=== PATIENT | male | born 1945 | race Caucasian/White ===

== ENCOUNTER 2021-05-11 07:05 | Inpatient (IN) | payer MEDICARE, MEDICAID ==
[~2021-05-11] VITALS: Ht 172.7 cm; Wt 71.9 kg
[2021-05-11] MEDS ORDERED: ipratropium/albuterol 3ml nebule NEB ONE (07:35)
[2021-05-11 07:44] LABS: ABG BASE EXCESS -11.9 mmol/L (-2.0-2.0); ABG OXYGEN SATURATION 97.3 % (94-97); ABG PCO2 (T) 26.3 mmHg (35.0-48.0); ABG PO2 (T) 100.3 mmHg (75.0-100.0); ALLEN'S TEST Modified; FCOHb 0.8 % (0.0-3.9); FLOW 15 L/min; FMetHb 0.3 % (0.0-1.5); FO2Hb 96.2 % (94-97); TOTAL HEMOGLOBIN 9.2 G/dl (14.0-18.0)
[2021-05-11] MEDS ORDERED: epiNEPHrine 0.1mg/ml 10ml syringe ONE (08:00)
[2021-05-11] MEDS ORDERED: sod chloride 0.9% 10ml flush syringe IV ONE (08:00)
[2021-05-11] MEDS ORDERED: calcium chloride 100 MG/1 ML inj IV ONE (08:00)
[2021-05-11] MEDS ORDERED: epiNEPHrine 1 mg/ml 30ml MDV ONE (08:00)
[2021-05-11] MEDS ORDERED: adenosine 3mg/ml 2ml vial IV ONE (08:00)
[2021-05-11] MEDS ORDERED: nitroPRUSSIDE 20mg/NS 100mL (0.2mg/mL) VIAL (200mcg/ml) IV ONE (08:00)
[2021-05-11] MEDS ORDERED: rocuronium 10mg/ml inj IV ONE (08:00)
[2021-05-11] MEDS ORDERED: atropine 0.1mg/ml 10ml syringe ONE (08:00)
[2021-05-11 08:27] LABS: BASOPHILS % (AUTO) 0.3 % (0-1); EOSINOPHILS # (AUTO) 0.1 X10'3 (0-0.9); EOSINOPHILS % (AUTO) 0.5 % (0-6); HEMATOCRIT 26.8 % (42.0-52.0); HEMOGLOBIN 8.8 g/dl (14.0-17.9); LYMPHOCYTES # (AUTO) 0.4 X10'3 (1.1-4.8); LYMPHOCYTES % (AUTO) 2.7 % (21-51); MEAN CORPUSCULAR HEMOGLOBIN 32.9 PG (27.0-31.0); MEAN CORPUSCULAR HGB CONC 32.8 g/dL (33.0-36.5); MEAN CORPUSCULAR VOLUME 100.3 FL (78-98); MONOCYTES # (AUTO) 0.6 X10'3 (0-0.9); MONOCYTES % (AUTO) 4.5 % (2-12); NEUTROPHILS # (AUTO) 12.5 X10'3 (1.8-7.7); PLATELET COUNT 378 X10'3 (140-440); RED BLOOD COUNT 2.67 X10'6 (4.70-6.10); RED CELL DISTRIBUTION WIDTH 15.3 % (11.5-14.5); WHITE BLOOD COUNT 13.5 X10'3 (4.5-11.0)
--- NOTE | 2021-05-11 08:35 | NUR ---
pathology technician at bedside.
--- NOTE | 2021-05-11 08:50 | NUR ---
TO CT AT THIS TIME.
[2021-05-11 08:53] LABS: ALANINE AMINOTRANSFERASE 20 U/L (12-78); ALBUMIN/GLOBULIN RATIO 0.4 (1.1-1.5); ALKALINE PHOSPHATASE 141 IU/L (46-116); ANION GAP 14 (8-16); ASPARTATE AMINO TRANSFERASE 18 U/L (10-37); BILIRUBIN,TOTAL 0.4 MG/DL (0.1-1.0); BLOOD UREA NITROGEN 82 MG/DL (7-18); CALCIUM 8.5 MG/DL (8.5-10.1); CHLORIDE 105 MMOL/L (99-107); CREATININE 5.12 MG/DL (0.60-1.10); GLUCOSE 202 MG/DL (70-104); SODIUM 135 MMOL/L (135-145); TOTAL CARBON DIOXIDE 15.8 MMOL/L (24-32); eGFR 11 ML/MIN
[2021-05-11] MEDS ORDERED: CefTRIAXone/D5W-Rocephin 1gm 50 ML IV ONE (09:00)
[2021-05-11] MEDS ORDERED: azithromycin/NS 500mg/250ml 250 ML IV ONE (09:00)
--- NOTE | 2021-05-11 09:00 | NUR ---
BACK FROM CT AT THIS TIME VIA [facility].
--- NOTE | 2021-05-11 09:10 | NUR ---
SUPERVISOR FUR FLOOR WORKER AT BEDSIDE.
[2021-05-11 09:46] LABS: APTT 20 SECONDS (22-32)
--- NOTE | 2021-05-11 10:00 | NUR ---
Kishan cuevas at bedside stating he spoke with patient's son with dr jackson and according to MD patient no longer needs to be on COVID isolation r/t patient positive COVID test x1 month ago and will continue to test positive for up to 3 months after testing positive.
[2021-05-11] MEDS ORDERED: normal saline 1000ml 1,000 ML IV SCH (10:20)
[2021-05-11] MEDS ORDERED: acetaminophen 325mg tablet PO PRN (10:20)
--- NOTE | 2021-05-11 10:24 | NUR ---
JACKLYN LEON (SON) [phone].
--- NOTE | 2021-05-11 11:25 | NUR ---
Patient to [facility] via [facility].
--- NOTE | 2021-05-11 12:20 | NUR ---
RT AT BEDSIDE TO ASSESS PATIENT AND MADE AWARE PAT ON 10L SIMPLE MASK WITH SPO2 MAINTAINING 97%. PATIENT ASLEEP, NO SIGNS OF DISTRESS NOTED.
--- NOTE | 2021-05-11 12:32 | NUR ---
duoneb svn tx was not needed and not given. patient on covid isolation. will notify doctor of covid policy for covid patient's if patient needs a breathing tx. also nurse jaspal is aware of svn tx not given.
--- NOTE | 2021-05-11 14:38 | NUR ---
Dr. Buitrago at bedside.
[2021-05-11] MEDS ORDERED: sodium polystyrene sulfonate 15gm/60ml oral suspension PO STA (14:39)
[2021-05-11] MEDS ORDERED: albuterol 2.5 MG/3 ML nebule NEB STA (14:39)
[2021-05-11] MEDS ORDERED: ASPI-611 PO (14:47)
[2021-05-11] MEDS ORDERED: SERT-432 PO (14:47)
[2021-05-11] MEDS ORDERED: METO100T14 PO (14:47)
[2021-05-11] MEDS ORDERED: FINA5TAB11 PO (14:47)
[2021-05-11] MEDS ORDERED: OXYC5CAP19 PO (14:47)
[2021-05-11] MEDS ORDERED: GABA600T13 PO (14:47)
[2021-05-11] MEDS ORDERED: ACET-2615 PO (14:47)
[2021-05-11] MEDS ORDERED: MULT-1085 PO (14:47)
[2021-05-11] MEDS ORDERED: FAMO20TA8 PO (14:47)
[2021-05-11] MEDS ORDERED: INSU100I8 SQ (14:47)
[2021-05-11] MEDS ORDERED: AMLO5TAB PO (14:47)
[2021-05-11] MEDS ORDERED: TRAZ-251 PO (14:47)
[2021-05-11] MEDS ORDERED: INSU100V9 SQ (14:47)
[2021-05-11] MEDS ORDERED: CALC-825 PO (14:47)
[2021-05-11] MEDS ORDERED: ALLO100T25 PO (14:47)
[2021-05-11] MEDS: normal saline 1000ml 1,000 ML IV SCH (14:56)
[2021-05-11] MEDS ORDERED: heparin 10,000 units/1 ML INJ IV PRN (15:15)
[2021-05-11] MEDS ORDERED: heparin 10,000 units/1 ML INJ IV ONE (15:15)
[2021-05-11] MEDS: heparin 25,000 UNIT/250ml bag 250 ML IV SCH (15:57)
[2021-05-11] MEDS ORDERED: heparin, porcine 5000 units/ml vial SQ SCH (16:00)
[2021-05-11] MEDS ORDERED: albuterol 2.5 MG/3 ML nebule CONTNEB PRN (16:25)
[2021-05-11 17:40] VITALS: BP 110/45
[2021-05-11] MEDS ORDERED: calcium gluconate inj. 1 GM in normal saline 100ml IV soln 100 ML IV ONE (17:45)
[2021-05-11] MEDS ORDERED: albuterol 2.5 MG/3 ML nebule NEB ONE (17:45)
[2021-05-11] MEDS ORDERED: insulin regular, human 10 units/0.1 ml syringe IV ONE (17:45)
[2021-05-11] MEDS ORDERED: dextrose 50%-water 50ml dispensing syringe IV ONE (17:45)
[2021-05-11] MEDS ORDERED: dexamethasone 4mg/ml inj IV SCH (20:00)
[2021-05-11] MEDS ORDERED: temazepam 15mg capsule PO PRN (21:00)
[2021-05-11] MEDS ORDERED: albuterol 2.5 MG/3 ML nebule CONTNEB STA (21:04)
[2021-05-11] MEDS: SODIUM ZIRCONIUM CYCLOSILICATE 10 GM POWD.PACK PO SCH (21:05)
[2021-05-11 22:00] VITALS: BP 117/53
[2021-05-11 22:35] LABS: HEMOGLOBIN 7.1 g/dl (14.0-17.9); MEAN PLATELET VOLUME 7.1 FL (7.4-10.4)
[2021-05-11 22:36] LABS: BASOPHILS # (AUTO) 0.2 X10'3 (0-0.2); BASOPHILS % (AUTO) 1.4 % (0-1); EOSINOPHILS % (AUTO) 0.1 % (0-6); HEMATOCRIT 22.2 % (42.0-52.0); LYMPHOCYTES # (AUTO) 0.5 X10'3 (1.1-4.8); LYMPHOCYTES % (AUTO) 3.6 % (21-51); MEAN CORPUSCULAR HEMOGLOBIN 32.5 PG (27.0-31.0); MEAN CORPUSCULAR VOLUME 101.7 FL (78-98); MONOCYTES # (AUTO) 0.7 X10'3 (0-0.9); NEUTROPHILS # (AUTO) 13.2 X10'3 (1.8-7.7); NEUTROPHILS % (AUTO) 89.9 % (42-75); PLATELET COUNT 340 X10'3 (140-440); RED BLOOD COUNT 2.19 X10'6 (4.70-6.10); RED CELL DISTRIBUTION WIDTH 15.4 % (11.5-14.5); WHITE BLOOD COUNT 14.7 X10'3 (4.5-11.0)
[2021-05-11 22:54] LABS: D-DIMER 6.21 MG/L FEU (0-0.50)
[2021-05-11 22:56] LABS: ALANINE AMINOTRANSFERASE 20 U/L (12-78); ALBUMIN 1.8 G/DL (3.4-5.0); ALBUMIN/GLOBULIN RATIO 0.4 (1.1-1.5); ALKALINE PHOSPHATASE 133 IU/L (46-116); ANION GAP 14 (8-16); ASPARTATE AMINO TRANSFERASE 15 U/L (10-37); BILIRUBIN,TOTAL 0.2 MG/DL (0.1-1.0); BLOOD UREA NITROGEN 83 MG/DL (7-18); CALCIUM 8.5 MG/DL (8.5-10.1); CHLORIDE 108 MMOL/L (99-107); CREATININE 5.54 MG/DL (0.60-1.10); GLUCOSE 326 MG/DL (70-104); MAGNESIUM 2.3 MG/DL (1.5-2.4); PHOSPHORUS 6.1 MG/DL (2.3-4.5); POTASSIUM 4.7 MMOL/L (3.5-5.1); SODIUM 139 MMOL/L (135-145); TOTAL CARBON DIOXIDE 16.7 MMOL/L (24-32); TOTAL PROTEIN 6.4 G/DL (6.4-8.2); eGFR 10 ML/MIN
[2021-05-11 22:59] LABS: TOTAL CELLS COUNTED 100
[2021-05-11 23:08] LABS: PLATELET ESTIMATE NORMAL
[2021-05-11 23:09] LABS: ANISOCYTOSIS 1+; POLYCHROMASIA FEW
[2021-05-11 23:28] LABS: ABG BASE EXCESS -11.9 mmol/L (-2.0-2.0); ABG HCO3 14.2 mmol/L (22.0-26.0); ABG OXYGEN SATURATION 89.4 % (94-97); ABG PCO2 (T) 32.6 mmHg (35.0-48.0); ABG PO2 (T) 56.3 mmHg (75.0-100.0); ALLEN'S TEST Modified; FCOHb 0.7 % (0.0-3.9); FLOW 15 L/min; FMetHb 0.3 % (0.0-1.5); FO2Hb 88.5 % (94-97); PATIENT TEMPERATURE 36.9; TOTAL HEMOGLOBIN 7.3 G/dl (14.0-18.0)
[2021-05-12] VITALS (37 sets, daily range): BP systolic 95–145; BP diastolic 36–91
[2021-05-12] MEDS ORDERED: LIDOcaine 2% 10ml TOPICAL JELLY (Urojet) TP ONE (00:45)
--- NOTE | 2021-05-12 01:12 | NUR ---
Pt transferred down to ICU bed from telemetry due to increased SOB and anxiety. Report received from telegraph editor and questions answered. When pt arrived he was on a nonrebreather mask at 15 LPM, very restless, unable to sit still. Pt transferred over to ICU bed and cleaned up since he was incontinent of stool. He was then placed on bipap which he tolerated fairly well and was able to follow commands and answer questions appropriately. Dr. Katz teleconferenced in to assess the pt and ordered an insulin drip for his untreated high blood sugars and a precedex drip to help with the pts anxiety. Orders were placed and waiting on approval and meds from pharmacy.
[2021-05-12] MEDS ORDERED: dextrose 50%-water 50ml dispensing syringe IV PRN (01:20)
[2021-05-12] MEDS ORDERED: insulin Lispro (HumaLOG) vial - multi-dose SQ PRN (01:20)
[2021-05-12] MEDS ORDERED: Insulin Reg/NS 100units/100mL 100 ML IV SCH (01:20)
[2021-05-12] MEDS: dexmedetomidine/D5W 100mL 100 ML IV PRN (01:25)
[2021-05-12] MEDS: normal saline 1000ml 1,000 ML IV SCH (01:42)
[2021-05-12 02:42] LABS: ABG BASE EXCESS -11.7 mmol/L (-2.0-2.0); ABG HCO3 13.6 mmol/L (22.0-26.0); ABG OXYGEN SATURATION 98.7 % (94-97); ABG PCO2 (T) 30.3 mmHg (35.0-48.0); ABG PO2 (T) 142.4 mmHg (75.0-100.0); ALLEN'S TEST Modified; FCOHb 0.7 % (0.0-3.9); FMetHb 0.3 % (0.0-1.5); FO2Hb 97.7 % (94-97); PATIENT TEMPERATURE 38.4; TOTAL HEMOGLOBIN 6.2 G/dl (14.0-18.0)
--- NOTE | 2021-05-12 03:26 | NUR ---
Precedex drip running and pt able to rest comfortably and tolerate the bipap very well so I am weaning down the fiO2.
[2021-05-12 04:01] LABS: BASOPHILS # (AUTO) 0.1 X10'3 (0-0.2); EOSINOPHILS % (AUTO) 0.1 % (0-6); LYMPHOCYTES # (AUTO) 0.2 X10'3 (1.1-4.8); LYMPHOCYTES % (AUTO) 1.5 % (21-51); PLATELET COUNT 348 X10'3 (140-440)
[2021-05-12 04:03] LABS: BASOPHILS % (AUTO) 0.7 % (0-1); MEAN CORPUSCULAR HEMOGLOBIN 32.7 PG (27.0-31.0); MEAN CORPUSCULAR HGB CONC 32.4 g/dL (33.0-36.5); MEAN CORPUSCULAR VOLUME 101.1 FL (78-98); MEAN PLATELET VOLUME 7.1 FL (7.4-10.4); MONOCYTES # (AUTO) 0.5 X10'3 (0-0.9); MONOCYTES % (AUTO) 3.9 % (2-12); NEUTROPHILS % (AUTO) 93.8 % (42-75); RED BLOOD COUNT 1.83 X10'6 (4.70-6.10); RED CELL DISTRIBUTION WIDTH 15.5 % (11.5-14.5); WHITE BLOOD COUNT 13.9 X10'3 (4.5-11.0)
[2021-05-12 04:10] LABS: HEMATOCRIT 18.5 % (42.0-52.0)
[2021-05-12 04:15] LABS: ALANINE AMINOTRANSFERASE 18 U/L (12-78); ALBUMIN 1.7 G/DL (3.4-5.0); ALBUMIN/GLOBULIN RATIO 0.5 (1.1-1.5); ALKALINE PHOSPHATASE 128 IU/L (46-116); ANION GAP 15 (8-16); ASPARTATE AMINO TRANSFERASE 17 U/L (10-37); BILIRUBIN,TOTAL 0.3 MG/DL (0.1-1.0); BLOOD UREA NITROGEN 82 MG/DL (7-18); CALCIUM 7.3 MG/DL (8.5-10.1); CHLORIDE 109 MMOL/L (99-107); CREATININE 5.11 MG/DL (0.60-1.10); GLUCOSE 270 MG/DL (70-104); MAGNESIUM 2.3 MG/DL (1.5-2.4); PHOSPHORUS 6.2 MG/DL (2.3-4.5); POTASSIUM 4.9 MMOL/L (3.5-5.1); SODIUM 141 MMOL/L (135-145); TOTAL CARBON DIOXIDE 16.8 MMOL/L (24-32); TOTAL PROTEIN 5.2 G/DL (6.4-8.2); eGFR 11 ML/MIN
--- NOTE | 2021-05-12 05:48 | NUR ---
pt responding well to insulin drip.
--- NOTE | 2021-05-12 06:30 | NUR ---
Called to notify MD of critical hemoglobin at this time. Plan for 2 units PRBCs
[2021-05-12] MEDS ORDERED: VANCOMYCIN 1GM/200ML IVPB 200 ML IV PRN (07:20)
--- NOTE | 2021-05-12 07:59 | NUR ---
Problems reprioritized. Patient report given, questions answered & plan of care reviewed with Tiffany ORLANDO.
[2021-05-12] MEDS ORDERED: VANCOMYCIN 1GM/200ML IVPB 200 ML IV ONE (08:00)
[2021-05-12] MEDS ORDERED: dexamethasone 4mg/ml inj IV SCH (08:00)
[2021-05-12] MEDS ORDERED: CefTRIAXone 2gm/D5W 50ml BAG 50 ML IV SCH (08:00)
[2021-05-12] MEDS: SODIUM ZIRCONIUM CYCLOSILICATE 10 GM POWD.PACK PO SCH ×2 (08:00→13:00)
[2021-05-12] MEDS ORDERED: dexamethasone inj 6 MG in dextrose 5%-water 100 ML IV SCH (08:00)
--- NOTE | 2021-05-12 09:16 | NUR ---
Called pharmacy- Patient medications are unavailable at this time. To be sent via Pharmacy.
[2021-05-12] MEDS: acetaminophen 325mg tablet PO PRN (11:07)
--- NOTE | 2021-05-12 11:18 | NUR ---
Noted pt transferred to ICU w/ acute respiratory failure, bilateral PNA, [place], and hx CKD V per EMR. PO 25% initial renal meals BIPAP dependent though able to drink liquids w/ frequent coughing interrupting meal intake per RN. DEB recommends Nepro ONS TIDWM; notified. Will monitor for further nutrition intervention needs. Addendum: 05/12/21 at [address] Amended: Links added.
[2021-05-12] MEDS ORDERED: OXYCODONE HCL PO SCH (11:45)
--- NOTE | 2021-05-12 12:00 | NUR ---
Notified MD of low grade temp at this time. Current hemoglobin 7.4- Plan to hold off on second unit
[2021-05-12 12:33] LABS: BASOPHILS # (AUTO) 0.1 X10'3 (0-0.2); BASOPHILS % (AUTO) 0.7 % (0-1); EOSINOPHILS % (AUTO) 0.1 % (0-6); HEMATOCRIT 22.7 % (42.0-52.0); HEMOGLOBIN 7.4 g/dl (14.0-17.9); LYMPHOCYTES # (AUTO) 0.4 X10'3 (1.1-4.8); LYMPHOCYTES % (AUTO) 3.1 % (21-51); MEAN CORPUSCULAR HEMOGLOBIN 31.9 PG (27.0-31.0); MEAN CORPUSCULAR HGB CONC 32.6 g/dL (33.0-36.5); MEAN CORPUSCULAR VOLUME 97.9 FL (78-98); MEAN PLATELET VOLUME 7.2 FL (7.4-10.4); MONOCYTES # (AUTO) 0.7 X10'3 (0-0.9); NEUTROPHILS # (AUTO) 11.9 X10'3 (1.8-7.7); NEUTROPHILS % (AUTO) 91.1 % (42-75); PLATELET COUNT 304 X10'3 (140-440); RED BLOOD COUNT 2.32 X10'6 (4.70-6.10); RED CELL DISTRIBUTION WIDTH 16.8 % (11.5-14.5); WHITE BLOOD COUNT 13.1 X10'3 (4.5-11.0)
[2021-05-12 12:54] LABS: CHLORIDE 111 MMOL/L (99-107); POTASSIUM 4.4 MMOL/L (3.5-5.1)
[2021-05-12] MEDS: NUT.TX.IMP.RENAL FXN,LAC-REDUC (Nepro) 237 ML VANILLA PO SCH ×2 (13:00→18:00)
[2021-05-12 13:11] LABS: ALANINE AMINOTRANSFERASE 21 U/L (12-78); ALBUMIN 1.6 G/DL (3.4-5.0); ALBUMIN/GLOBULIN RATIO 0.4 (1.1-1.5); ALKALINE PHOSPHATASE 130 IU/L (46-116); ANION GAP 16 (8-16); ASPARTATE AMINO TRANSFERASE 25 U/L (10-37); BILIRUBIN,TOTAL 0.4 MG/DL (0.1-1.0); BLOOD UREA NITROGEN 80 MG/DL (7-18); BUN/CREATININE RATIO 15.7 (5.4-32.0); CALCIUM 7.3 MG/DL (8.5-10.1); CREATININE 5.09 MG/DL (0.60-1.10); GLUCOSE 142 MG/DL (70-104); SODIUM 144 MMOL/L (135-145); TOTAL CARBON DIOXIDE 16.6 MMOL/L (24-32); TOTAL PROTEIN 5.2 G/DL (6.4-8.2); eGFR 11 ML/MIN
[2021-05-12] MEDS: dexamethasone 6 MG in D5W 100ml IV soln IV SCH ×2 (13:21→20:07)
[2021-05-12] MEDS: azithromycin/NS 500mg/250ml 250 ML IV SCH (14:09)
[2021-05-12] MEDS: sodium bicarbonate (8.4%) inj. 150 MEQ in dextrose 5%-water 1,000 ML IV SCH ×2 (14:09→17:10)
[2021-05-12] MEDS: heparin 25,000 UNIT/250ml bag 250 ML IV SCH (15:05)
[2021-05-12] MEDS: ondansetron/PF 4mg/2ml inj IV PRN (15:33)
[2021-05-12] MEDS: CefTRIAXone 2gm/D5W 50ml BAG 50 ML IV SCH (18:43)
--- NOTE | 2021-05-12 19:00 | NUR ---
1900 Received patient from ongoing RN. Labs and orders reviewed. Patient is AAOX2 confused to time. Patient on BIPAP of FIO2 70%, 16/8 with O2 sats of 89-90. NSR noted on the assistant manager, Afebrile. Manjarrez to gravity with yellow drainage. Heparin Gtt running at 13mls/hr. Insulin gtt running at 3.1ml/hr. Bicarb gtt running at 100 mls/hr. Assessed skin blanchable redness sacrum noted. Patient resting in bed comfortably, denies pain and discomfort. Will continue to monitor patient's status. 2300 Patient resting in bed comfortably, continuing monitoring patient's heparin and insulin gtt. 0500 Patient desated in the 70's during oral care and exertion after morning bath, but oxygenation increased rapidly after intervention. 0600 Report given to oncoming RN , labs and orders reviewed. Will continue to monitor patient's status.
[2021-05-12] MEDS: morphine 2 MG/ML inj. syringe IV PRN (19:32)
[2021-05-12] MEDS: traZODone 50mg tablet PO SCH (20:07)
[2021-05-12] MEDS: acetaminophen 325mg tablet PO SCH (20:07)
[2021-05-12 20:27] LABS: LACTATE DEHYDROGENASE 367 U/L (85-227)
[2021-05-12 20:36] LABS: C-REACTIVE PROTEIN 31.45 MG/DL (0.0-0.5)
[2021-05-12] MEDS ORDERED: gabapentin 300mg capsule PO SCH (21:00)
[2021-05-13] VITALS (36 sets, daily range): BP systolic 102–141; BP diastolic 43–71
[2021-05-13] MEDS: VANCOMYCIN LEVEL IV SCH (03:00)
[2021-05-13 03:25] LABS: BASOPHILS % (AUTO) 0.1 % (0-1); EOSINOPHILS % (AUTO) 0.1 % (0-6); HEMATOCRIT 22.1 % (42.0-52.0); HEMOGLOBIN 7.2 g/dl (14.0-17.9); LYMPHOCYTES # (AUTO) 0.2 X10'3 (1.1-4.8); LYMPHOCYTES % (AUTO) 1.5 % (21-51); MEAN CORPUSCULAR HEMOGLOBIN 31.8 PG (27.0-31.0); MEAN CORPUSCULAR HGB CONC 32.6 g/dL (33.0-36.5); MEAN CORPUSCULAR VOLUME 97.5 FL (78-98); MEAN PLATELET VOLUME 7.5 FL (7.4-10.4); MONOCYTES # (AUTO) 0.2 X10'3 (0-0.9); MONOCYTES % (AUTO) 1.5 % (2-12); NEUTROPHILS # (AUTO) 12.8 X10'3 (1.8-7.7); NEUTROPHILS % (AUTO) 96.8 % (42-75); PLATELET COUNT 311 X10'3 (140-440); RED BLOOD COUNT 2.27 X10'6 (4.70-6.10); RED CELL DISTRIBUTION WIDTH 16.6 % (11.5-14.5); WHITE BLOOD COUNT 13.3 X10'3 (4.5-11.0)
[2021-05-13 03:37] LABS: D-DIMER 3.93 MG/L FEU (0-0.50)
[2021-05-13] MEDS: sodium bicarbonate (8.4%) inj. 150 MEQ in dextrose 5%-water 1,000 ML IV SCH (03:56)
[2021-05-13 04:05] LABS: ALANINE AMINOTRANSFERASE 25 U/L (12-78); ALBUMIN 1.5 G/DL (3.4-5.0); ALBUMIN/GLOBULIN RATIO 0.5 (1.1-1.5); ALKALINE PHOSPHATASE 148 IU/L (46-116); ANION GAP 16 (8-16); ASPARTATE AMINO TRANSFERASE 35 U/L (10-37); BILIRUBIN,TOTAL 0.3 MG/DL (0.1-1.0); BLOOD UREA NITROGEN 82 MG/DL (7-18); BUN/CREATININE RATIO 16.8 (5.4-32.0); CALCIUM 7.5 MG/DL (8.5-10.1); CHLORIDE 107 MMOL/L (99-107); CREATININE 4.89 MG/DL (0.60-1.10); GLUCOSE 181 MG/DL (70-104); SODIUM 144 MMOL/L (135-145); TOTAL PROTEIN 4.8 G/DL (6.4-8.2); VANCOMYCIN,RANDOM 12.3 UG/ML; eGFR 12 ML/MIN
[2021-05-13 04:23] LABS: C-REACTIVE PROTEIN 32.75 MG/DL (0.0-0.5)
[2021-05-13 05:09] LABS: ANISOCYTOSIS 1+; PLATELET ESTIMATE NORMAL; TOTAL CELLS COUNTED 100
[2021-05-13 05:10] LABS: TEAR DROP CELLS FEW
[2021-05-13] MEDS: azithromycin/NS 500mg/250ml 250 ML IV SCH (07:45)
[2021-05-13] MEDS: dexamethasone 6 MG in D5W 100ml IV soln IV SCH (07:45)
[2021-05-13] MEDS: CefTRIAXone 2gm/D5W 50ml BAG 50 ML IV SCH (07:45)
[2021-05-13] MEDS: sertraline 25mg tablet PO SCH (07:45)
[2021-05-13] MEDS: calcium carbonate/vitamin D3 tablet PO SCH (07:46)
[2021-05-13] MEDS: multivitamins, therapeutics tablet PO SCH (07:46)
[2021-05-13] MEDS: aspirin 81mg, enteric-coated 1 TAB TABLET.DR PO SCH (07:46)
[2021-05-13] MEDS: acetaminophen 325mg tablet PO SCH ×2 (07:47→20:53)
[2021-05-13] MEDS: finasteride 5mg tablet PO SCH (07:52)
[2021-05-13] MEDS ORDERED: allopurinol 100mg tablet PO SCH (08:00)
[2021-05-13] MEDS ORDERED: VANCOMYCIN 1GM/200ML IVPB 200 ML IV ONE (08:00)
[2021-05-13] MEDS ORDERED: famotidine 20mg tablet PO SCH (08:00)
[2021-05-13] MEDS: NUT.TX.IMP.RENAL FXN,LAC-REDUC (Nepro) 237 ML VANILLA PO SCH ×3 (08:03→18:04)
--- NOTE | 2021-05-13 08:51 | NUR ---
Discussing POC with MD at this time. Plan to d/c heparin gtt. SQ Lovenox to be ordered daily.
[2021-05-13] MEDS ORDERED: glucagon, human recombinant 1mg kit SUBCUT PRN (11:25)
[2021-05-13] MEDS ORDERED: dextrose ORAL solution 15 GM/59 ML bottle PO PRN ×2 (11:25)
[2021-05-13] MEDS ORDERED: dextrose 50%-water 50ml dispensing syringe IV PRN (11:25)
[2021-05-13] MEDS ORDERED: MESSAGE TO PHARMACY PO ONE (11:25)
[2021-05-13] MEDS: calcium acetate 667mg (PhosLO) capsule PO SCH ×2 (13:00→18:05)
[2021-05-13] MEDS: methylPREDNISolone sod succ 125mg/2ml vial IV SCH (15:56)
[2021-05-13] MEDS: insulin Lispro (HumaLOG) vial - multi-dose SQ SCH (17:47)
[2021-05-13] MEDS: traZODone 50mg tablet PO SCH (20:53)
[2021-05-13] MEDS: enoxaparin 30mg/0.3ml syringe SUBCUT SCH (20:57)
[2021-05-13] MEDS: gabapentin 300mg capsule PO SCH (20:58)
[2021-05-13] MEDS: insulin glargine (Lantus) pen - multi-dose SQ SCH (21:38)
[2021-05-13] MEDS: morphine 2 MG/ML inj. syringe IV PRN (22:44)
[2021-05-14] VITALS (35 sets, daily range): BP systolic 116–145; BP diastolic 52–72
[2021-05-14] MEDS: methylPREDNISolone sod succ 125mg/2ml vial IV SCH ×3 (00:39→16:27)
[2021-05-14] MEDS: VANCOMYCIN LEVEL IV SCH (03:00)
[2021-05-14] MEDS: morphine 2 MG/ML inj. syringe IV PRN (03:01)
[2021-05-14 04:02] LABS: BASOPHILS % (AUTO) 0.3 % (0-1); EOSINOPHILS % (AUTO) 0 % (0-6); HEMATOCRIT 23.1 % (42.0-52.0); HEMOGLOBIN 7.5 g/dl (14.0-17.9); LYMPHOCYTES # (AUTO) 0.4 X10'3 (1.1-4.8); LYMPHOCYTES % (AUTO) 2.9 % (21-51); MEAN CORPUSCULAR HEMOGLOBIN 31.4 PG (27.0-31.0); MEAN CORPUSCULAR HGB CONC 32.6 g/dL (33.0-36.5); MEAN CORPUSCULAR VOLUME 96.4 FL (78-98); MEAN PLATELET VOLUME 7.8 FL (7.4-10.4); MONOCYTES # (AUTO) 0.2 X10'3 (0-0.9); MONOCYTES % (AUTO) 1.8 % (2-12); NEUTROPHILS # (AUTO) 11.6 X10'3 (1.8-7.7); PLATELET COUNT 326 X10'3 (140-440); WHITE BLOOD COUNT 12.2 X10'3 (4.5-11.0)
[2021-05-14 04:09] LABS: D-DIMER 4.28 MG/L FEU (0-0.50)
[2021-05-14 04:15] LABS: ALANINE AMINOTRANSFERASE 26 U/L (12-78); ALBUMIN 1.7 G/DL (3.4-5.0); ALBUMIN/GLOBULIN RATIO 0.5 (1.1-1.5); ALKALINE PHOSPHATASE 150 IU/L (46-116); ANION GAP 12 (8-16); ASPARTATE AMINO TRANSFERASE 23 U/L (10-37); BILIRUBIN,TOTAL 0.2 MG/DL (0.1-1.0); BLOOD UREA NITROGEN 88 MG/DL (7-18); BUN/CREATININE RATIO 18.2 (5.4-32.0); CHLORIDE 102 MMOL/L (99-107); CREATININE 4.84 MG/DL (0.60-1.10); GLUCOSE 313 MG/DL (70-104); SODIUM 138 MMOL/L (135-145); TOTAL CARBON DIOXIDE 24.3 MMOL/L (24-32); TOTAL PROTEIN 5.2 G/DL (6.4-8.2); VANCOMYCIN,RANDOM 20.7 UG/ML; eGFR 12 ML/MIN
[2021-05-14 04:18] LABS: C-REACTIVE PROTEIN 32.23 MG/DL (0.0-0.5)
[2021-05-14] MEDS: dexmedetomidine/D5W 100mL 100 ML IV PRN (07:27)
[2021-05-14] MEDS: azithromycin/NS 500mg/250ml 250 ML IV SCH (07:39)
[2021-05-14] MEDS: CefTRIAXone 2gm/D5W 50ml BAG 50 ML IV SCH (07:39)
[2021-05-14] MEDS: sertraline 25mg tablet PO SCH (07:40)
[2021-05-14] MEDS: calcium carbonate/vitamin D3 tablet PO SCH (07:40)
[2021-05-14] MEDS: acetaminophen 325mg tablet PO SCH (07:40)
[2021-05-14] MEDS: multivitamins, therapeutics tablet PO SCH (07:40)
[2021-05-14] MEDS: aspirin 81mg, enteric-coated 1 TAB TABLET.DR PO SCH (07:40)
[2021-05-14] MEDS: calcium acetate 667mg (PhosLO) capsule PO SCH ×3 (07:41→17:49)
[2021-05-14] MEDS: finasteride 5mg tablet PO SCH (07:43)
[2021-05-14 07:47] LABS: ABG BASE EXCESS -3.4 mmol/L (-2.0-2.0); ABG HCO3 22.2 mmol/L (22.0-26.0); ABG OXYGEN SATURATION 90.3 % (94-97); ABG PCO2 (T) 40.5 mmHg (35.0-48.0); ALLEN'S TEST POSITIVE; FCOHb 0.3 % (0.0-3.9); FMetHb 0.2 % (0.0-1.5); FO2Hb 89.8 % (94-97); PATIENT TEMPERATURE 35.8; RESPIRATORY RATE 10 b/min; TOTAL HEMOGLOBIN 8.7 G/dl (14.0-18.0)
[2021-05-14] MEDS: furosemide 40mg/4ml inj IV SCH ×2 (08:11→20:08)
[2021-05-14] MEDS: insulin Lispro (HumaLOG) vial - multi-dose SQ SCH ×4 (08:20→21:37)
[2021-05-14 09:01] LABS: MAGNESIUM 2.2 MG/DL (1.5-2.4)
[2021-05-14] MEDS ORDERED: cefepime 1GM/NS ADD-VANTAGE 100 ML IV SCH (09:20)
[2021-05-14 10:01] LABS: PHOSPHORUS 7.8 MG/DL (2.3-4.5)
[2021-05-14] MEDS: docusate sod 100mg capsule PO SCH ×2 (10:59→20:07)
--- NOTE | 2021-05-14 15:33 | NUR ---
Initial: Pt admit DX sepsis, acute respiratory failure, bilateral PNA, [place], and CKD V per EMR. Hx T2DM no A1C this admit though Hgb 7.5 this AM likely not appropriate for accurate A1C at this time. Pt remains BIPAP dependent PO 0-25% avg of three meals documented this admit on renal diet w/ Nepro TIDWM not meeting needs. Pending corpak placement w/ NG feeds to start for nutrition today per day care director; pending consult. TF recs below given pt needs. Phos 7.8 this AM w/ Phoslo started yesterday per EMR. Glu 274-313mg/dl off insulin drip started on glycemic protocol and receiving Solumedrol per EMR. LBM 05/12 w/ routine colace to start today per MD at rounds. Will monitor for TF consult and further nutrition intervention needs. Rec: 1. Once Continuous TF per MD; Pivot 1.5 at 54ml/hr goal to provide 1296ml volume/day, 1944 kcals, 1458ml water, and 122g protein. 2. additional water flush per day care director given CKD V 3. IF TF; PALB Q /; daily wts 4. IF pt remains on NG feeds and sepsis resolves; consider formula change to Nepro 1.8 at 50ml/hr goal 5. Phos binder per MD 6. routine bowel care Addendum: 05/14/21 at [address] Amended: Links added. Addendum: 05/31/21 at [address] CORRECTION* 1. Pivot 1.5 with 54 mL/hr goal to provide 1296 mL volume/day, 1944 kcal, 972 mL water, and 122 g protein.
--- NOTE | 2021-05-14 17:45 | NUR ---
TF consult: Pt s/p Corpak placement, KUB report pending at this time. See TF recommendations below. Recommendations: 1. Continuous TF per MD; Pivot 1.5 at 54ml/hr goal to provide 1296ml volume/day, 1944 kcals, 1458ml water, and 122g protein. 2. Additional water flush per environmental technical officer given CKD V 3. PALB q /; daily wts 4. IF pt remains on NG feeds and sepsis resolves; consider formula change to Nepro 1.8 at 50ml/hr goal 5. Phos binder per MD 6. routine bowel care Addendum: 05/14/21 at [address] Amended: Links added. Addendum: 05/31/21 at [address] CORRECTION* 1. Pivot 1.5 with 54 mL/hr goal to provide 1296 mL volume/day, 1944 kcal, 972 mL water, and 122 g protein.
[2021-05-14] MEDS: NUT.TX.IMP.RENAL FXN,LAC-REDUC (Nepro) 237 ML VANILLA PO SCH (19:00)
[2021-05-14] MEDS: traZODone 50mg tablet PO SCH (20:07)
[2021-05-14] MEDS: enoxaparin 30mg/0.3ml syringe SUBCUT SCH (20:07)
[2021-05-14] MEDS: gabapentin 300mg capsule PO SCH (20:08)
[2021-05-14] MEDS: insulin glargine (Lantus) pen - multi-dose SQ SCH (21:34)
[2021-05-14] MEDS: insulin regular, human U-100 3ml vial - multi-dose SQ SCH (21:41)
[2021-05-15] VITALS (23 sets, daily range): BP systolic 120–164; BP diastolic 49–75
[2021-05-15] MEDS: methylPREDNISolone sod succ 125mg/2ml vial IV SCH ×3 (00:41→15:52)
[2021-05-15 02:42] LABS: BASOPHILS # (AUTO) 0.1 X10'3 (0-0.2); BASOPHILS % (AUTO) 0.8 % (0-1); EOSINOPHILS % (AUTO) 0 % (0-6); HEMATOCRIT 23.7 % (42.0-52.0); HEMOGLOBIN 7.8 g/dl (14.0-17.9); LYMPHOCYTES # (AUTO) 0.3 X10'3 (1.1-4.8); LYMPHOCYTES % (AUTO) 3.1 % (21-51); MEAN CORPUSCULAR HEMOGLOBIN 31.6 PG (27.0-31.0); MEAN CORPUSCULAR HGB CONC 32.9 g/dL (33.0-36.5); MEAN CORPUSCULAR VOLUME 95.9 FL (78-98); MEAN PLATELET VOLUME 7.6 FL (7.4-10.4); MONOCYTES # (AUTO) 0.2 X10'3 (0-0.9); MONOCYTES % (AUTO) 2.1 % (2-12); NEUTROPHILS # (AUTO) 8.6 X10'3 (1.8-7.7); PLATELET COUNT 331 X10'3 (140-440); RED BLOOD COUNT 2.48 X10'6 (4.70-6.10); RED CELL DISTRIBUTION WIDTH 16.8 % (11.5-14.5); WHITE BLOOD COUNT 9.1 X10'3 (4.5-11.0)
[2021-05-15 03:00] LABS: ALANINE AMINOTRANSFERASE 22 U/L (12-78); ALBUMIN 1.6 G/DL (3.4-5.0); ALBUMIN/GLOBULIN RATIO 0.5 (1.1-1.5); ALKALINE PHOSPHATASE 142 IU/L (46-116); ANION GAP 14 (8-16); ASPARTATE AMINO TRANSFERASE 13 U/L (10-37); BILIRUBIN,TOTAL 0.1 MG/DL (0.1-1.0); BLOOD UREA NITROGEN 97 MG/DL (7-18); BUN/CREATININE RATIO 19.5 (5.4-32.0); C-REACTIVE PROTEIN 19.08 MG/DL (0.0-0.5); CALCIUM 7.5 MG/DL (8.5-10.1); CHLORIDE 106 MMOL/L (99-107); CREATININE 4.98 MG/DL (0.60-1.10); GLUCOSE 155 MG/DL (70-104); POTASSIUM 3.8 MMOL/L (3.5-5.1); SODIUM 143 MMOL/L (135-145); TOTAL CARBON DIOXIDE 22.7 MMOL/L (24-32); TOTAL PROTEIN 5.1 G/DL (6.4-8.2); VANCOMYCIN,RANDOM 17.6 UG/ML; eGFR 11 ML/MIN
[2021-05-15] MEDS: VANCOMYCIN LEVEL IV SCH (03:00)
[2021-05-15 03:21] LABS: D-DIMER 5.43 MG/L FEU (0-0.50)
[2021-05-15] MEDS: insulin regular, human U-100 3ml vial - multi-dose SQ SCH ×3 (03:56→14:21)
[2021-05-15] MEDS: dexmedetomidine/D5W 100mL 100 ML IV PRN (04:54)
[2021-05-15] MEDS: azithromycin/NS 500mg/250ml 250 ML IV SCH (07:48)
[2021-05-15] MEDS: cefepime 1GM in D5W 50mL 50 ML IV SCH (07:48)
[2021-05-15] MEDS: sertraline 25mg tablet PO SCH (07:49)
[2021-05-15] MEDS: furosemide 40mg/4ml inj IV SCH ×2 (07:49→20:15)
[2021-05-15] MEDS: multivitamins, therapeutics tablet PO SCH (07:49)
[2021-05-15] MEDS: finasteride 5mg tablet PO SCH (07:49)
[2021-05-15] MEDS: calcium carbonate/vitamin D3 tablet PO SCH (07:49)
[2021-05-15] MEDS: aspirin 81mg, enteric-coated 1 TAB TABLET.DR PO SCH (07:49)
[2021-05-15] MEDS: docusate sod 100mg capsule PO SCH (07:50)
[2021-05-15] MEDS: acetaminophen 325mg tablet PO PRN (07:50)
[2021-05-15] MEDS: calcium acetate 667mg (PhosLO) capsule PO SCH (07:51)
[2021-05-15] MEDS ORDERED: allopurinol 100mg tablet PO SCH (08:00)
[2021-05-15] MEDS ORDERED: famotidine 20mg tablet PO SCH (08:00)
[2021-05-15] MEDS ORDERED: acetaminophen 325mg/10.15ml oral unit dose solution NG PRN ×2 (08:25)
[2021-05-15] MEDS ORDERED: dextrose ORAL solution 15 GM/59 ML bottle CORPAK PRN ×2 (12:12→12:13)
[2021-05-15] MEDS: NUT.TX.IMP.RENAL FXN,LAC-REDUC (Nepro) 237 ML VANILLA CORPAK SCH ×2 (13:00→18:00)
[2021-05-15] MEDS: calcium acetate 667mg (PhosLO) capsule CORPAK SCH ×2 (14:04→17:24)
[2021-05-15] MEDS: acetaminophen 325mg/10.15ml oral unit dose solution CORPAK PRN (14:08)
[2021-05-15] MEDS: HYDROcodone/acetaminophen 5mg/325mg tablet PO PRN (17:24)
[2021-05-15] MEDS: docusate sodium 100mg/10ml UD cup CORPAK SCH (20:15)
[2021-05-15] MEDS: enoxaparin 30mg/0.3ml syringe SUBCUT SCH (20:15)
[2021-05-15] MEDS: traZODone 50mg tablet CORPAK SCH (21:00)
[2021-05-15] MEDS: gabapentin 300mg capsule CORPAK SCH (21:00)
[2021-05-15] MEDS: insulin glargine (Lantus) pen - multi-dose SQ SCH (21:00)
[2021-05-16] VITALS (21 sets, daily range): BP systolic 133–174; BP diastolic 55–85
[2021-05-16 02:43] LABS: BASOPHILS % (AUTO) 0.1 % (0-1); EOSINOPHILS % (AUTO) 0.1 % (0-6); HEMATOCRIT 27.4 % (42.0-52.0); HEMOGLOBIN 9.1 g/dl (14.0-17.9); LYMPHOCYTES # (AUTO) 0.1 X10'3 (1.1-4.8); LYMPHOCYTES % (AUTO) 1.4 % (21-51); MEAN CORPUSCULAR HEMOGLOBIN 32.1 PG (27.0-31.0); MEAN CORPUSCULAR HGB CONC 33.2 g/dL (33.0-36.5); MEAN CORPUSCULAR VOLUME 96.6 FL (78-98); MEAN PLATELET VOLUME 7.9 FL (7.4-10.4); MONOCYTES # (AUTO) 0.1 X10'3 (0-0.9); MONOCYTES % (AUTO) 1.2 % (2-12); NEUTROPHILS % (AUTO) 97.2 % (42-75); PLATELET COUNT 326 X10'3 (140-440); RED BLOOD COUNT 2.83 X10'6 (4.70-6.10); RED CELL DISTRIBUTION WIDTH 17.1 % (11.5-14.5); WHITE BLOOD COUNT 10.3 X10'3 (4.5-11.0)
[2021-05-16 02:59] LABS: D-DIMER 11.98 MG/L FEU (0-0.50)
[2021-05-16 03:12] LABS: ALANINE AMINOTRANSFERASE 24 U/L (12-78); ALBUMIN 1.7 G/DL (3.4-5.0); ALBUMIN/GLOBULIN RATIO 0.5 (1.1-1.5); ALKALINE PHOSPHATASE 169 IU/L (46-116); ANION GAP 14 (8-16); ASPARTATE AMINO TRANSFERASE 21 U/L (10-37); BILIRUBIN,TOTAL 0.2 MG/DL (0.1-1.0); BLOOD UREA NITROGEN 117 MG/DL (7-18); BUN/CREATININE RATIO 24.7 (5.4-32.0); C-REACTIVE PROTEIN 12.26 MG/DL (0.0-0.5); CALCIUM 6.8 MG/DL (8.5-10.1); CHLORIDE 103 MMOL/L (99-107); CREATININE 4.74 MG/DL (0.60-1.10); GLUCOSE 358 MG/DL (70-104); POTASSIUM 4.2 MMOL/L (3.5-5.1); SODIUM 139 MMOL/L (135-145); TOTAL CARBON DIOXIDE 22.5 MMOL/L (24-32); TOTAL PROTEIN 5.1 G/DL (6.4-8.2); VANCOMYCIN,RANDOM 15.3 UG/ML; eGFR 12 ML/MIN
[2021-05-16] MEDS: VANCOMYCIN LEVEL IV SCH (03:44)
[2021-05-16] MEDS: insulin regular, human U-100 3ml vial - multi-dose SQ SCH ×3 (03:54→14:16)
[2021-05-16] MEDS: dexmedetomidine/D5W 100mL 100 ML IV PRN ×2 (05:52→15:57)
[2021-05-16] MEDS: NUT.TX.IMP.RENAL FXN,LAC-REDUC (Nepro) 237 ML VANILLA CORPAK SCH ×3 (08:00→18:00)
[2021-05-16] MEDS: methylPREDNISolone sod succ 125mg/2ml vial IV SCH ×3 (08:25→15:18)
[2021-05-16] MEDS: docusate sodium 100mg/10ml UD cup CORPAK SCH ×2 (08:25→20:09)
[2021-05-16] MEDS: furosemide 40mg/4ml inj IV SCH ×2 (08:26→20:09)
[2021-05-16] MEDS: sertraline 25mg tablet CORPAK SCH (08:27)
[2021-05-16] MEDS: calcium carbonate/vitamin D3 tablet CORPAK SCH (08:27)
[2021-05-16] MEDS: cefepime 1GM in D5W 50mL 50 ML IV SCH (08:27)
[2021-05-16] MEDS: calcium acetate 667mg (PhosLO) capsule CORPAK SCH ×3 (08:28→18:00)
[2021-05-16] MEDS: aspirin 81mg tab.chew CORPAK SCH (08:40)
[2021-05-16] MEDS: finasteride 5mg tablet PO SCH (08:40)
[2021-05-16] MEDS: MULTIVIT-MIN/FERROUS GLUCONATE 9 MG/15 ML LIQUID CORPAK SCH (08:40)
[2021-05-16] MEDS ORDERED: azithromycin 200mg/5ml oral suspension 15ml bottle CORPAK SCH (11:00)
[2021-05-16] MEDS: azithromycin/NS 500mg/250ml 250 ML IV SCH (15:07)
[2021-05-16] MEDS: morphine 2 MG/ML inj. syringe IV PRN (16:31)
[2021-05-16] MEDS: traZODone 50mg tablet CORPAK SCH (20:09)
[2021-05-16] MEDS: gabapentin 300mg capsule CORPAK SCH (20:10)
[2021-05-16] MEDS: enoxaparin 30mg/0.3ml syringe SUBCUT SCH (20:10)
--- NOTE | 2021-05-16 20:15 | NUR ---
Glucose check using blood obtained via PICC line = 57. Capillary re-check is 60. Medicated with 25ml D50W as ordered. Glucose check after 15 min = 112.
[2021-05-16] MEDS: insulin glargine (Lantus) pen - multi-dose SQ SCH (21:00)
--- NOTE | 2021-05-16 21:00 | NUR ---
Call in to Dr. Woody to report 2000 glucose check of 60 - recheck after treatment - 112. Advised to hold Lantus dose for tonight. Also advised to hold 2000 carb coverage insulin and re-evaluate at 0200 glucose check.
[2021-05-16] MEDS: HYDROcodone/acetaminophen 5mg/325mg tablet PO PRN (21:51)
[2021-05-17] VITALS (25 sets, daily range): BP systolic 79–159; BP diastolic 47–70
[2021-05-17] MEDS: methylPREDNISolone sod succ 125mg/2ml vial IV SCH ×3 (00:12→19:14)
[2021-05-17] MEDS: dexmedetomidine/D5W 100mL 100 ML IV PRN ×5 (00:18→23:06)
[2021-05-17] MEDS: morphine 2 MG/ML inj. syringe IV PRN ×3 (01:17→19:11)
[2021-05-17] MEDS: insulin regular, human U-100 3ml vial - multi-dose SQ SCH ×4 (02:38→20:32)
[2021-05-17] MEDS: VANCOMYCIN LEVEL IV SCH (03:00)
[2021-05-17 03:44] LABS: ABG BASE EXCESS -2.5 mmol/L (-2.0-2.0); ABG HCO3 21.8 mmol/L (22.0-26.0); ABG OXYGEN SATURATION 89.9 % (94-97); ABG PCO2 (T) 34.1 mmHg (35.0-48.0); ABG PO2 (T) 52.3 mmHg (75.0-100.0); ALLEN'S TEST POSITIVE; FCOHb 0.3 % (0.0-3.9); FMetHb 0.3 % (0.0-1.5); FO2Hb 89.4 % (94-97); PATIENT TEMPERATURE 35.8; RESPIRATORY RATE 21 b/min; TOTAL HEMOGLOBIN 10.1 G/dl (14.0-18.0)
[2021-05-17 03:47] LABS: C-REACTIVE PROTEIN 8.36 MG/DL (0.0-0.5); PREALBUMIN 21.9 MG/DL (19-36); VANCOMYCIN,RANDOM 13.3 UG/ML
[2021-05-17] MEDS: cefepime 1GM in D5W 50mL 50 ML IV SCH (07:59)
[2021-05-17] MEDS: azithromycin/NS 500mg/250ml 250 ML IV SCH (07:59)
[2021-05-17] MEDS: calcium acetate 667mg (PhosLO) capsule CORPAK SCH ×2 (08:00→13:00)
[2021-05-17] MEDS: aspirin 81mg tab.chew CORPAK SCH (08:00)
[2021-05-17] MEDS: sertraline 25mg tablet CORPAK SCH (08:00)
[2021-05-17] MEDS: finasteride 5mg tablet PO SCH (08:00)
[2021-05-17] MEDS: furosemide 40mg/4ml inj IV SCH ×2 (08:00→19:14)
[2021-05-17] MEDS: NUT.TX.IMP.RENAL FXN,LAC-REDUC (Nepro) 237 ML VANILLA CORPAK SCH ×2 (08:00→12:21)
[2021-05-17] MEDS: docusate sodium 100mg/10ml UD cup CORPAK SCH ×2 (08:00→19:13)
[2021-05-17] MEDS: allopurinol 100mg tablet CORPAK SCH (08:00)
[2021-05-17] MEDS: calcium carbonate/vitamin D3 tablet CORPAK SCH (08:00)
[2021-05-17] MEDS: famotidine 20mg tablet CORPAK SCH (08:00)
[2021-05-17] MEDS: MULTIVIT-MIN/FERROUS GLUCONATE 9 MG/15 ML LIQUID CORPAK SCH (08:02)
[2021-05-17 08:03] LABS: ALANINE AMINOTRANSFERASE 22 U/L (12-78); ALBUMIN 1.5 G/DL (3.4-5.0); ALBUMIN/GLOBULIN RATIO 0.5 (1.1-1.5); ALKALINE PHOSPHATASE 141 IU/L (46-116); ANION GAP 16 (8-16); ASPARTATE AMINO TRANSFERASE 24 U/L (10-37); BILIRUBIN,TOTAL 0.2 MG/DL (0.1-1.0); BLOOD UREA NITROGEN 122 MG/DL (7-18); BUN/CREATININE RATIO 27.7 (5.4-32.0); CALCIUM 6.1 MG/DL (8.5-10.1); CHLORIDE 105 MMOL/L (99-107); CREATININE 4.41 MG/DL (0.60-1.10); GLUCOSE 217 MG/DL (70-104); POTASSIUM 4.1 MMOL/L (3.5-5.1); SODIUM 141 MMOL/L (135-145); TOTAL CARBON DIOXIDE 20.4 MMOL/L (24-32); TOTAL PROTEIN 4.8 G/DL (6.4-8.2); eGFR 13 ML/MIN
[2021-05-17] MEDS ORDERED: heparin 1,000unit/ml 10ml vial 10 ML IV ONE (08:05)
[2021-05-17] MEDS ORDERED: albumin (human) 25% 100ml IV 100 ML IV PRN (08:05)
[2021-05-17] MEDS ORDERED: EPOETIN ALFA-EPBX 20,000 UNIT/ML 1 ML MDV IV ONE (08:05)
[2021-05-17] MEDS ORDERED: heparin 1,000 units/ml 10ml inj IV ONE (08:05)
[2021-05-17] MEDS ORDERED: heparin 1,000 units/ml 10ml inj HE ONE ×2 (08:10)
[2021-05-17 08:56] LABS: BASOPHILS % (AUTO) 0.3 % (0-1); EOSINOPHILS % (AUTO) 0 % (0-6); HEMATOCRIT 27.7 % (42.0-52.0); HEMOGLOBIN 8.9 g/dl (14.0-17.9); LYMPHOCYTES # (AUTO) 0.2 X10'3 (1.1-4.8); LYMPHOCYTES % (AUTO) 1.7 % (21-51); MEAN CORPUSCULAR HGB CONC 32.2 g/dL (33.0-36.5); MEAN CORPUSCULAR VOLUME 96.2 FL (78-98); MEAN PLATELET VOLUME 8.2 FL (7.4-10.4); MONOCYTES # (AUTO) 0.4 X10'3 (0-0.9); MONOCYTES % (AUTO) 2.6 % (2-12); NEUTROPHILS # (AUTO) 12.8 X10'3 (1.8-7.7); NEUTROPHILS % (AUTO) 95.4 % (42-75); PLATELET COUNT 321 X10'3 (140-440); RED BLOOD COUNT 2.88 X10'6 (4.70-6.10); RED CELL DISTRIBUTION WIDTH 16.7 % (11.5-14.5); WHITE BLOOD COUNT 13.4 X10'3 (4.5-11.0)
--- NOTE | 2021-05-17 11:16 | NUR ---
Reassessment: Pt continues to receive TF at goal and remains BiPAP dependent. Pt may start HD acutely per Child Monitor. Pt noted to be coughing w/ some swallowing. LBM 05/16 receiving routine colace. No change to recommendations at this time, will continue to monitor. Recommendations: 1. Continuous TF per MD; Pivot 1.5 at 54ml/hr goal to provide 1296ml volume/day, 1944 kcals, 1458ml water, and 122g protein. 2. Additional water flush per pediatrician active practice given CKD V 3. PALB q /; daily wts 4. IF pt remains on NG feeds and sepsis resolves; consider formula change to Nepro 1.8 at 50ml/hr goal 5. Phos binder per MD 6. Routine bowel care Addendum: 05/17/21 at [address] Amended: Links added. Addendum: 05/31/21 at [address] CORRECTION* 1. Pivot 1.5 with 54 mL/hr goal to provide 1296 mL volume/day, 1944 kcal, 972 mL water, and 122 g protein.
[2021-05-17 12:54] LABS: ABG BASE EXCESS -3.1 mmol/L (-2.0-2.0); ABG HCO3 21.2 mmol/L (22.0-26.0); ABG OXYGEN SATURATION 94.9 % (94-97); ABG PCO2 (T) 33.6 mmHg (35.0-48.0); ABG PO2 (T) 69.1 mmHg (75.0-100.0); ALLEN'S TEST POSITIVE; FCOHb 0.3 % (0.0-3.9); FMetHb 0.3 % (0.0-1.5); FO2Hb 94.3 % (94-97); PATIENT TEMPERATURE 35.9; RESPIRATORY RATE 10 b/min; TIDAL VOLUME 454 mL; TOTAL HEMOGLOBIN 9.9 G/dl (14.0-18.0)
--- NOTE | 2021-05-17 14:38 | NUR ---
1154 Pathology Lab Technician bedside to start HD 1215 Hd started 1220 patient confused and profoundly weak on right side gave up to the right not verbally responsive, Charge nurse called to bedside stroke alert called, Bedside and reviewing vitals, assessing patient and entering new orders
[2021-05-17 16:51] LABS: ANISOCYTOSIS 1+; PLATELET ESTIMATE NORMAL; POIKILOCYTOSIS FEW; POLYCHROMASIA FEW; TOTAL CELLS COUNTED 100
[2021-05-17 16:52] LABS: BURR CELLS 1+
--- NOTE | 2021-05-17 18:19 | NUR ---
Problems reprioritized. Patient report given, questions answered & plan of care reviewed with kasia ORLANDO.
[2021-05-17] MEDS: enoxaparin 30mg/0.3ml syringe SUBCUT SCH (19:14)
[2021-05-17] MEDS: gabapentin 300mg capsule CORPAK SCH (20:16)
[2021-05-17] MEDS: traZODone 50mg tablet CORPAK SCH (20:16)
[2021-05-17] MEDS ORDERED: cefepime 1GM/NS ADD-VANTAGE 50 ML IV SCH (20:28)
[2021-05-17] MEDS: insulin glargine (Lantus) pen - multi-dose SQ SCH (20:35)
[2021-05-18] VITALS (24 sets, daily range): BP systolic 130–157; BP diastolic 53–73
[2021-05-18] MEDS: temazepam 15mg capsule CORPAK PRN ×3 (00:05→23:21)
[2021-05-18] MEDS: insulin regular, human U-100 3ml vial - multi-dose SQ SCH ×3 (02:18→20:36)
[2021-05-18 02:49] LABS: BASOPHILS # (AUTO) 0.1 X10'3 (0-0.2); BASOPHILS % (AUTO) 0.8 % (0-1); EOSINOPHILS % (AUTO) 0 % (0-6); HEMATOCRIT 24.9 % (42.0-52.0); HEMOGLOBIN 8.2 g/dl (14.0-17.9); LYMPHOCYTES # (AUTO) 0.3 X10'3 (1.1-4.8); LYMPHOCYTES % (AUTO) 1.7 % (21-51); MEAN CORPUSCULAR HEMOGLOBIN 31.6 PG (27.0-31.0); MEAN CORPUSCULAR HGB CONC 33.1 g/dL (33.0-36.5); MEAN CORPUSCULAR VOLUME 95.6 FL (78-98); MEAN PLATELET VOLUME 7.6 FL (7.4-10.4); MONOCYTES # (AUTO) 0.4 X10'3 (0-0.9); MONOCYTES % (AUTO) 2.4 % (2-12); NEUTROPHILS # (AUTO) 15.1 X10'3 (1.8-7.7); NEUTROPHILS % (AUTO) 95.1 % (42-75); PLATELET COUNT 299 X10'3 (140-440); RED CELL DISTRIBUTION WIDTH 16.9 % (11.5-14.5); WHITE BLOOD COUNT 15.9 X10'3 (4.5-11.0)
[2021-05-18] MEDS: dexmedetomidine/D5W 100mL 100 ML IV PRN ×5 (03:00→23:56)
[2021-05-18 03:04] LABS: D-DIMER 11.93 MG/L FEU (0-0.50)
[2021-05-18 03:17] LABS: ALANINE AMINOTRANSFERASE 26 U/L (12-78); ALBUMIN 1.6 G/DL (3.4-5.0); ALBUMIN/GLOBULIN RATIO 0.4 (1.1-1.5); ANION GAP 10 (8-16); ASPARTATE AMINO TRANSFERASE 31 U/L (10-37); BILIRUBIN,TOTAL 0.2 MG/DL (0.1-1.0); BLOOD UREA NITROGEN 133 MG/DL (7-18); BUN/CREATININE RATIO 30.6 (5.4-32.0); C-REACTIVE PROTEIN 12.51 MG/DL (0.0-0.5); CALCIUM 6.8 MG/DL (8.5-10.1); CHLORIDE 107 MMOL/L (99-107); CREATININE 4.35 MG/DL (0.60-1.10); GLUCOSE 102 MG/DL (70-104); POTASSIUM 4.2 MMOL/L (3.5-5.1); SODIUM 143 MMOL/L (135-145); TOTAL CARBON DIOXIDE 26.2 MMOL/L (24-32); TOTAL PROTEIN 5.2 G/DL (6.4-8.2); eGFR 13 ML/MIN
[2021-05-18] MEDS: sertraline 25mg tablet CORPAK SCH (07:18)
[2021-05-18] MEDS: furosemide 40mg/4ml inj IV SCH ×2 (07:18→20:03)
[2021-05-18] MEDS: calcium carbonate/vitamin D3 tablet CORPAK SCH (07:18)
[2021-05-18] MEDS: methylPREDNISolone sod succ 125mg/2ml vial IV SCH (07:18)
[2021-05-18] MEDS: docusate sodium 100mg/10ml UD cup CORPAK SCH ×2 (07:19→20:17)
[2021-05-18] MEDS: calcium acetate 667mg (PhosLO) capsule CORPAK SCH ×4 (07:19→18:00)
[2021-05-18] MEDS: MULTIVIT-MIN/FERROUS GLUCONATE 9 MG/15 ML LIQUID CORPAK SCH (07:30)
[2021-05-18] MEDS: finasteride 5mg tablet PO SCH (07:30)
[2021-05-18] MEDS: aspirin 81mg tab.chew CORPAK SCH (07:36)
[2021-05-18] MEDS: cefepime 1GM/NS ADD-VANTAGE 100 ML IV SCH (08:00)
[2021-05-18] MEDS: morphine 2 MG/ML inj. syringe IV PRN ×2 (09:14→23:49)
[2021-05-18] MEDS: HYDROcodone/acetaminophen 5mg/325mg tablet PO PRN ×2 (12:54→20:17)
[2021-05-18 14:19] LABS: D-DIMER 12.53 MG/L FEU (0-0.50)
[2021-05-18] MEDS: enoxaparin 30mg/0.3ml syringe SUBCUT SCH ×2 (15:46→20:16)
[2021-05-18] MEDS: traZODone 50mg tablet CORPAK SCH (20:14)
[2021-05-18] MEDS: gabapentin 300mg capsule CORPAK SCH (20:14)
[2021-05-18] MEDS: methylPREDNISolone sod succ/PF 40mg inj. IV SCH (20:16)
[2021-05-18] MEDS: insulin glargine (Lantus) pen - multi-dose SQ SCH (20:34)
--- NOTE | 2021-05-18 20:45 | NUR ---
Patient noted to be yelling out "Water! I want water!" patient assessed informed of NPO status. Oral care performed. Patient able to correctly states and states he is currently in [place] but unable recall city.
--- NOTE | 2021-05-18 22:15 | NUR ---
Patient continues to yell out for water, pepsi, and food and pulling on O2 tubing. Patient reminded of NPO status and asked not to remove oxygen. Oral care continuously preformed.
[2021-05-19] VITALS (24 sets, daily range): BP systolic 123–183; BP diastolic 55–84
--- NOTE | 2021-05-19 02:00 | NUR ---
Patient noted to be throwing blankets, and pillows, still continues to yell out. States " I wanna get up, help me!" Informed patient we can change positions but can not get out of bed.
[2021-05-19] MEDS: insulin regular, human U-100 3ml vial - multi-dose SQ SCH ×4 (02:40→20:59)
[2021-05-19 02:59] LABS: BASOPHILS # (AUTO) 0.1 X10'3 (0-0.2); BASOPHILS % (AUTO) 0.3 % (0-1); EOSINOPHILS % (AUTO) 0.1 % (0-6); HEMATOCRIT 23.1 % (42.0-52.0); HEMOGLOBIN 7.6 g/dl (14.0-17.9); LYMPHOCYTES # (AUTO) 0.3 X10'3 (1.1-4.8); LYMPHOCYTES % (AUTO) 1.7 % (21-51); MEAN CORPUSCULAR HEMOGLOBIN 31.4 PG (27.0-31.0); MEAN CORPUSCULAR VOLUME 95.2 FL (78-98); MEAN PLATELET VOLUME 8.4 FL (7.4-10.4); MONOCYTES # (AUTO) 0.3 X10'3 (0-0.9); MONOCYTES % (AUTO) 1.8 % (2-12); NEUTROPHILS # (AUTO) 16.9 X10'3 (1.8-7.7); NEUTROPHILS % (AUTO) 96.1 % (42-75); PLATELET COUNT 275 X10'3 (140-440); RED BLOOD COUNT 2.43 X10'6 (4.70-6.10); RED CELL DISTRIBUTION WIDTH 16.9 % (11.5-14.5); WHITE BLOOD COUNT 17.6 X10'3 (4.5-11.0)
[2021-05-19 03:14] LABS: ALANINE AMINOTRANSFERASE 30 U/L (12-78); ALBUMIN 1.5 G/DL (3.4-5.0); ALBUMIN/GLOBULIN RATIO 0.4 (1.1-1.5); ANION GAP 12 (8-16); ASPARTATE AMINO TRANSFERASE 33 U/L (10-37); BILIRUBIN,TOTAL 0.2 MG/DL (0.1-1.0); CALCIUM 6.7 MG/DL (8.5-10.1); CHLORIDE 104 MMOL/L (99-107); CREATININE 4.35 MG/DL (0.60-1.10); GLUCOSE 177 MG/DL (70-104); POTASSIUM 4.8 MMOL/L (3.5-5.1); SODIUM 139 MMOL/L (135-145); TOTAL CARBON DIOXIDE 23.3 MMOL/L (24-32); TOTAL PROTEIN 5.1 G/DL (6.4-8.2); eGFR 13 ML/MIN
[2021-05-19 03:31] LABS: BLOOD UREA NITROGEN 148 MG/DL (7-18)
[2021-05-19] MEDS: dexmedetomidine/D5W 100mL 100 ML IV PRN ×6 (03:43→23:38)
[2021-05-19 04:46] LABS: ANISOCYTOSIS 1+; PLATELET ESTIMATE NORMAL; TOTAL CELLS COUNTED 100
[2021-05-19 04:47] LABS: BURR CELLS 1+; POLYCHROMASIA FEW
[2021-05-19] MEDS: MULTIVIT-MIN/FERROUS GLUCONATE 9 MG/15 ML LIQUID CORPAK SCH (08:00)
[2021-05-19] MEDS: calcium acetate 667mg (PhosLO) capsule CORPAK SCH ×3 (08:00→19:25)
[2021-05-19] MEDS: finasteride 5mg tablet PO SCH (09:00)
[2021-05-19] MEDS: famotidine 20mg tablet CORPAK SCH (09:08)
[2021-05-19] MEDS: calcium carbonate/vitamin D3 tablet CORPAK SCH (09:08)
[2021-05-19] MEDS: aspirin 81mg tab.chew CORPAK SCH (09:08)
[2021-05-19] MEDS: sertraline 25mg tablet CORPAK SCH (09:08)
[2021-05-19] MEDS: allopurinol 100mg tablet CORPAK SCH (09:09)
[2021-05-19] MEDS: methylPREDNISolone sod succ/PF 40mg inj. IV SCH ×2 (09:09→19:27)
[2021-05-19] MEDS: HYDROcodone/acetaminophen 5mg/325mg tablet PO PRN (09:09)
[2021-05-19] MEDS: furosemide 40mg/4ml inj IV SCH ×2 (09:09→19:27)
[2021-05-19] MEDS: docusate sodium 100mg/10ml UD cup CORPAK SCH ×2 (09:10→19:29)
[2021-05-19] MEDS: enoxaparin 30mg/0.3ml syringe SUBCUT SCH ×2 (09:42→19:29)
[2021-05-19] MEDS: cefepime 1GM/NS ADD-VANTAGE 100 ML IV SCH (09:42)
[2021-05-19 10:22] LABS: MAGNESIUM 2.2 MG/DL (1.5-2.4); PHOSPHORUS 4.2 MG/DL (2.3-4.5)
[2021-05-19] MEDS: morphine 2 MG/ML inj. syringe IV PRN (12:03)
[2021-05-19 13:22] LABS: ABG BASE EXCESS -0.5 mmol/L (-2.0-2.0); ABG HCO3 24.4 mmol/L (22.0-26.0); ABG OXYGEN SATURATION 92.2 % (94-97); ABG PCO2 (T) 40.4 mmHg (35.0-48.0); ABG PO2 (T) 61.1 mmHg (75.0-100.0); ALLEN'S TEST POSITIVE; FCOHb 0.1 % (0.0-3.9); FLOW 30 L/min; FMetHb 0.3 % (0.0-1.5); FO2Hb 91.8 % (94-97); PATIENT TEMPERATURE 36.6; TOTAL HEMOGLOBIN 8.9 G/dl (14.0-18.0)
--- NOTE | 2021-05-19 18:08 | NUR ---
Shift synopsis Patient yells out throughout the day when staff is not in the room. When present, he is pleasant. He remains maxed on Precedex. He begins to sound quite wet in the chest around mid day. Providers aware and will be communicating with nephrology to decide if patient is stable for dialysis.
[2021-05-19] MEDS: gabapentin 300mg capsule CORPAK SCH (19:27)
[2021-05-19] MEDS: traZODone 50mg tablet CORPAK SCH (19:27)
[2021-05-19] MEDS: temazepam 15mg capsule CORPAK PRN (19:27)
[2021-05-19] MEDS: insulin glargine (Lantus) pen - multi-dose SQ SCH (20:58)
[2021-05-20] VITALS (24 sets, daily range): BP systolic 124–175; BP diastolic 54–74
[2021-05-20] MEDS: morphine 2 MG/ML inj. syringe IV PRN ×2 (02:33→14:25)
[2021-05-20] MEDS: insulin regular, human U-100 3ml vial - multi-dose SQ SCH ×4 (02:58→20:33)
[2021-05-20 03:10] LABS: BASOPHILS % (AUTO) 0.2 % (0-1); EOSINOPHILS % (AUTO) 0 % (0-6); HEMATOCRIT 24.4 % (42.0-52.0); HEMOGLOBIN 7.9 g/dl (14.0-17.9); LYMPHOCYTES # (AUTO) 0.3 X10'3 (1.1-4.8); LYMPHOCYTES % (AUTO) 1.7 % (21-51); MEAN CORPUSCULAR HEMOGLOBIN 31.5 PG (27.0-31.0); MEAN CORPUSCULAR HGB CONC 32.3 g/dL (33.0-36.5); MEAN CORPUSCULAR VOLUME 97.5 FL (78-98); MEAN PLATELET VOLUME 8.3 FL (7.4-10.4); MONOCYTES # (AUTO) 0.3 X10'3 (0-0.9); MONOCYTES % (AUTO) 1.6 % (2-12); NEUTROPHILS # (AUTO) 17.6 X10'3 (1.8-7.7); NEUTROPHILS % (AUTO) 96.5 % (42-75); PLATELET COUNT 288 X10'3 (140-440); RED BLOOD COUNT 2.51 X10'6 (4.70-6.10); RED CELL DISTRIBUTION WIDTH 16.8 % (11.5-14.5); WHITE BLOOD COUNT 18.2 X10'3 (4.5-11.0)
[2021-05-20 03:26] LABS: D-DIMER 16.67 MG/L FEU (0-0.50)
[2021-05-20 03:32] LABS: ALANINE AMINOTRANSFERASE 63 U/L (12-78); ALBUMIN 1.6 G/DL (3.4-5.0); ALBUMIN/GLOBULIN RATIO 0.5 (1.1-1.5); ALKALINE PHOSPHATASE 207 IU/L (46-116); ANION GAP 12 (8-16); ASPARTATE AMINO TRANSFERASE 62 U/L (10-37); BILIRUBIN,TOTAL 0.2 MG/DL (0.1-1.0); C-REACTIVE PROTEIN 6.81 MG/DL (0.0-0.5); CALCIUM 7.1 MG/DL (8.5-10.1); CHLORIDE 104 MMOL/L (99-107); CREATININE 4.55 MG/DL (0.60-1.10); GLUCOSE 169 MG/DL (70-104); MAGNESIUM 2.4 MG/DL (1.5-2.4); PHOSPHORUS 4.9 MG/DL (2.3-4.5); POTASSIUM 5.7 MMOL/L (3.5-5.1); PREALBUMIN 35.2 MG/DL (19-36); SODIUM 141 MMOL/L (135-145); TOTAL CARBON DIOXIDE 25.1 MMOL/L (24-32); TOTAL PROTEIN 5.1 G/DL (6.4-8.2); eGFR 13 ML/MIN
[2021-05-20 03:56] LABS: BLOOD UREA NITROGEN 166 MG/DL (7-18)
[2021-05-20 04:01] LABS: BUN/CREATININE RATIO 36.5 (5.4-32.0)
[2021-05-20] MEDS: dexmedetomidine/D5W 100mL 100 ML IV PRN ×5 (04:14→21:37)
[2021-05-20] MEDS: furosemide 40mg/4ml inj IV SCH ×2 (07:42→20:34)
[2021-05-20] MEDS: MULTIVIT-MIN/FERROUS GLUCONATE 9 MG/15 ML LIQUID CORPAK SCH (07:42)
[2021-05-20] MEDS: docusate sodium 100mg/10ml UD cup CORPAK SCH ×2 (07:42→20:34)
[2021-05-20] MEDS: sertraline 25mg tablet CORPAK SCH (07:43)
[2021-05-20] MEDS: aspirin 81mg tab.chew CORPAK SCH (07:43)
[2021-05-20] MEDS: calcium carbonate/vitamin D3 tablet CORPAK SCH (07:43)
[2021-05-20] MEDS: cefepime 1GM/NS ADD-VANTAGE 100 ML IV SCH (07:43)
[2021-05-20] MEDS: methylPREDNISolone sod succ/PF 40mg inj. IV SCH (07:43)
[2021-05-20] MEDS: calcium acetate 667mg (PhosLO) capsule CORPAK SCH ×3 (07:44→17:39)
[2021-05-20] MEDS: enoxaparin 30mg/0.3ml syringe SUBCUT SCH (07:44)
[2021-05-20] MEDS: finasteride 5mg tablet PO SCH (08:00)
[2021-05-20] MEDS ORDERED: EPOETIN ALFA-EPBX 20,000 UNIT/ML 1 ML MDV IV ONE (08:00)
[2021-05-20] MEDS ORDERED: normal saline 1000ml 250 ML IV PRN (08:00)
[2021-05-20] MEDS ORDERED: LIDOcaine 1% (10mg/ml) 2ml vial SQ ONE (08:00)
[2021-05-20] MEDS ORDERED: heparin 1,000 units/ml 10ml inj IV ONE (08:00)
[2021-05-20] MEDS: HYDROcodone/acetaminophen 5mg/325mg tablet PO PRN (08:43)
[2021-05-20] MEDS ORDERED: enoxaparin 30mg/0.3ml syringe SUBCUT SCH (09:27)
--- NOTE | 2021-05-20 12:13 | NUR ---
F/u 05/20: Pt now on high flow salter w/ non-rebreather remains on NGTF at goal and tolerating. Pt starting HD today at rounds continues to receive Phoslo TID per EMR. LBM 05/17 receiving routine colace. Will continue to monitor for TF tolerance and adjustment needs. Recommendations: 1. Continuous TF per MD; Pivot 1.5 at 54ml/hr goal to provide 1296ml volume/day, 1944 kcals, 1458ml water, and 122g protein. 2. Additional water flush per major general given CKD V 3. PALB q /; daily wts 4. IF pt remains on NG feeds and sepsis resolved per MD; consider formula change to Nepro 1.8 at 50ml/hr goal 5. Phos binder per MD 6. Routine bowel care Addendum: 05/20/21 at [address] Amended: Links added. Addendum: 05/31/21 at [address] CORRECTION* 1. Pivot 1.5 with 54 mL/hr goal to provide 1296 mL volume/day, 1944 kcal, 972 mL water, and 122 g protein.
[2021-05-20] MEDS ORDERED: heparin, porcine 5000 units/ml vial SQ SCH (20:00)
[2021-05-20] MEDS ORDERED: methylPREDNISolone sod succ/PF 40mg inj. IV SCH (20:00)
[2021-05-20] MEDS: insulin glargine (Lantus) pen - multi-dose SQ SCH (20:32)
[2021-05-20] MEDS: gabapentin 300mg capsule CORPAK SCH (20:37)
[2021-05-20] MEDS: traZODone 50mg tablet CORPAK SCH (20:37)
[2021-05-21] VITALS (22 sets, daily range): BP systolic 99–182; BP diastolic 51–81
[2021-05-21] MEDS: insulin regular, human U-100 3ml vial - multi-dose SQ SCH ×2 (02:12→20:23)
[2021-05-21] MEDS: dexmedetomidine/D5W 100mL 100 ML IV PRN ×5 (02:57→22:07)
[2021-05-21] MEDS: morphine 2 MG/ML inj. syringe IV PRN (02:57)
[2021-05-21 03:04] LABS: BASOPHILS % (AUTO) 0.3 % (0-1); EOSINOPHILS % (AUTO) 0 % (0-6); HEMATOCRIT 22.3 % (42.0-52.0); HEMOGLOBIN 7.2 g/dl (14.0-17.9); LYMPHOCYTES # (AUTO) 0.3 X10'3 (1.1-4.8); LYMPHOCYTES % (AUTO) 1.8 % (21-51); MEAN CORPUSCULAR HEMOGLOBIN 31.1 PG (27.0-31.0); MEAN CORPUSCULAR HGB CONC 32.5 g/dL (33.0-36.5); MEAN CORPUSCULAR VOLUME 95.7 FL (78-98); MEAN PLATELET VOLUME 8.9 FL (7.4-10.4); MONOCYTES # (AUTO) 0.5 X10'3 (0-0.9); MONOCYTES % (AUTO) 3.1 % (2-12); NEUTROPHILS # (AUTO) 14.8 X10'3 (1.8-7.7); NEUTROPHILS % (AUTO) 94.8 % (42-75); PLATELET COUNT 264 X10'3 (140-440); RED BLOOD COUNT 2.33 X10'6 (4.70-6.10); RED CELL DISTRIBUTION WIDTH 16.5 % (11.5-14.5); WHITE BLOOD COUNT 15.6 X10'3 (4.5-11.0)
[2021-05-21 03:39] LABS: ALANINE AMINOTRANSFERASE 76 U/L (12-78); ALBUMIN 1.7 G/DL (3.4-5.0); ALBUMIN/GLOBULIN RATIO 0.5 (1.1-1.5); ALKALINE PHOSPHATASE 229 IU/L (46-116); ANION GAP 9 (8-16); ASPARTATE AMINO TRANSFERASE 54 U/L (10-37); BILIRUBIN,TOTAL 0.2 MG/DL (0.1-1.0); BLOOD UREA NITROGEN 133 MG/DL (7-18); BUN/CREATININE RATIO 36.3 (5.4-32.0); C-REACTIVE PROTEIN 4.67 MG/DL (0.0-0.5); CALCIUM 7.2 MG/DL (8.5-10.1); CHLORIDE 103 MMOL/L (99-107); CREATININE 3.66 MG/DL (0.60-1.10); GLUCOSE 203 MG/DL (70-104); MAGNESIUM 2.3 MG/DL (1.5-2.4); POTASSIUM 5.8 MMOL/L (3.5-5.1); SODIUM 140 MMOL/L (135-145); TOTAL CARBON DIOXIDE 27.6 MMOL/L (24-32); TOTAL PROTEIN 5.1 G/DL (6.4-8.2); eGFR 16 ML/MIN
[2021-05-21 04:20] LABS: D-DIMER 18.67 MG/L FEU (0-0.50)
[2021-05-21 04:21] LABS: TOTAL CELLS COUNTED 100
[2021-05-21 04:22] LABS: ANISOCYTOSIS 1+; PLATELET ESTIMATE NORMAL
[2021-05-21 04:23] LABS: BURR CELLS FEW
[2021-05-21 04:24] LABS: POLYCHROMASIA FEW; TEAR DROP CELLS FEW
[2021-05-21] MEDS ORDERED: LIDOcaine 1% (10mg/ml) 2ml vial SQ ONE (08:00)
[2021-05-21] MEDS ORDERED: normal saline 1000ml 250 ML IV PRN (08:00)
[2021-05-21] MEDS ORDERED: heparin 1,000 units/ml 10ml inj IV ONE (08:00)
[2021-05-21] MEDS ORDERED: EPOETIN ALFA-EPBX 20,000 UNIT/ML 1 ML MDV IV ONE (08:00)
[2021-05-21] MEDS: finasteride 5mg tablet PO SCH (10:49)
[2021-05-21] MEDS: docusate sodium 100mg/10ml UD cup CORPAK SCH ×2 (10:49→20:05)
[2021-05-21] MEDS: MULTIVIT-MIN/FERROUS GLUCONATE 9 MG/15 ML LIQUID CORPAK SCH (10:49)
[2021-05-21] MEDS: ondansetron/PF 4mg/2ml inj IV PRN (10:50)
[2021-05-21] MEDS: allopurinol 100mg tablet CORPAK SCH (10:51)
[2021-05-21] MEDS: aspirin 81mg tab.chew CORPAK SCH (10:51)
[2021-05-21] MEDS: furosemide 40mg/4ml inj IV SCH ×2 (10:51→20:05)
[2021-05-21] MEDS: HYDROcodone/acetaminophen 5mg/325mg tablet PO PRN ×2 (10:52→20:06)
[2021-05-21] MEDS: cefepime 1GM/NS ADD-VANTAGE 100 ML IV SCH (10:52)
[2021-05-21] MEDS: calcium carbonate/vitamin D3 tablet CORPAK SCH (10:53)
[2021-05-21] MEDS: sertraline 25mg tablet CORPAK SCH (10:53)
[2021-05-21] MEDS: famotidine 20mg tablet CORPAK SCH (10:54)
[2021-05-21] MEDS: calcium acetate 667mg (PhosLO) capsule CORPAK SCH ×3 (10:55→17:53)
[2021-05-21] MEDS: heparin, porcine 5000 units/ml vial SQ SCH (16:00)
[2021-05-21] MEDS: gabapentin 300mg capsule CORPAK SCH (20:05)
[2021-05-21] MEDS: traZODone 50mg tablet CORPAK SCH (20:05)
[2021-05-21] MEDS: methylPREDNISolone sod succ/PF 40mg inj. IV SCH (20:05)
[2021-05-21] MEDS: temazepam 15mg capsule CORPAK PRN (20:06)
[2021-05-21] MEDS: insulin glargine (Lantus) pen - multi-dose SQ SCH (20:22)
[2021-05-21] MEDS ORDERED: cefepime 1GM in D5W 50mL 100 ML IV SCH (20:30)
[2021-05-22] VITALS (23 sets, daily range): BP systolic 129–175; BP diastolic 51–73
[2021-05-22] MEDS: heparin, porcine 5000 units/ml vial SQ SCH ×4 (00:08→23:44)
[2021-05-22] MEDS: dexmedetomidine/D5W 100mL 100 ML IV PRN ×4 (02:05→19:38)
[2021-05-22] MEDS: insulin regular, human U-100 3ml vial - multi-dose SQ SCH ×3 (02:18→21:09)
[2021-05-22 03:03] LABS: BASOPHILS % (AUTO) 0.1 % (0-1); EOSINOPHILS % (AUTO) 0.1 % (0-6); HEMATOCRIT 22.4 % (42.0-52.0); HEMOGLOBIN 7.3 g/dl (14.0-17.9); LYMPHOCYTES # (AUTO) 0.3 X10'3 (1.1-4.8); LYMPHOCYTES % (AUTO) 2.3 % (21-51); MEAN CORPUSCULAR HEMOGLOBIN 31.5 PG (27.0-31.0); MEAN CORPUSCULAR HGB CONC 32.6 g/dL (33.0-36.5); MEAN CORPUSCULAR VOLUME 96.8 FL (78-98); MEAN PLATELET VOLUME 8.8 FL (7.4-10.4); MONOCYTES # (AUTO) 0.2 X10'3 (0-0.9); MONOCYTES % (AUTO) 1.9 % (2-12); NEUTROPHILS # (AUTO) 11.7 X10'3 (1.8-7.7); NEUTROPHILS % (AUTO) 95.6 % (42-75); PLATELET COUNT 245 X10'3 (140-440); RED BLOOD COUNT 2.32 X10'6 (4.70-6.10); RED CELL DISTRIBUTION WIDTH 16.7 % (11.5-14.5); WHITE BLOOD COUNT 12.3 X10'3 (4.5-11.0)
[2021-05-22 03:22] LABS: D-DIMER 14.89 MG/L FEU (0-0.50)
[2021-05-22 04:15] LABS: ALANINE AMINOTRANSFERASE 75 U/L (12-78); ALBUMIN 1.8 G/DL (3.4-5.0); ALBUMIN/GLOBULIN RATIO 0.5 (1.1-1.5); ALKALINE PHOSPHATASE 212 IU/L (46-116); ANION GAP 9 (8-16); ASPARTATE AMINO TRANSFERASE 46 U/L (10-37); BILIRUBIN,TOTAL 0.2 MG/DL (0.1-1.0); BLOOD UREA NITROGEN 93 MG/DL (7-18); BUN/CREATININE RATIO 34.7 (5.4-32.0); C-REACTIVE PROTEIN 4.62 MG/DL (0.0-0.5); CALCIUM 7.7 MG/DL (8.5-10.1); CHLORIDE 102 MMOL/L (99-107); CREATININE 2.68 MG/DL (0.60-1.10); GLUCOSE 144 MG/DL (70-104); MAGNESIUM 2.2 MG/DL (1.5-2.4); PHOSPHORUS 4.5 MG/DL (2.3-4.5); POTASSIUM 5.3 MMOL/L (3.5-5.1); SODIUM 140 MMOL/L (135-145); TOTAL CARBON DIOXIDE 29.3 MMOL/L (24-32); TOTAL PROTEIN 5.2 G/DL (6.4-8.2); eGFR 23 ML/MIN
--- NOTE | 2021-05-22 05:45 | NUR ---
Mr. Pat came in on 05/11/2021 with complaints of shortness of breath, altered mental status change for 3 weeks and a fall in the shower. His past medical history consists of Chronic Kidney Disease, DM Type 2, COPD, CHF, and Asthma per son. Pt is a full code with no known drug allergies. Pt is currently on 6L BNC with 12L Non-rebreather on kiara of it. He is Alert, awake and oriented to self only, very confused, but follows simple commands such as turning. Pt has a R. hand 20 guage peripheral iv and a R. PICC line with Precedex at 1.3 mcg/kg/hr. He also has NS at 10ml/hr. Pt has a condom catheter and rectal tube that is intact. Rectal tube was checked for patency and flushed with 50cc. Pt also has a right CorPack with Pivot 1.5 running at 54cc which is goal for the patient. Residuals have been minimal throughout the shift. Pt is on a Level 6 with accuchecks every 6 hours. Last blood sugar at 0200 was 144mg/dL. Pt has a left arm fistula. He did receive HD on 05/20 as well as 05/21 (they pulled a bit over 800cc's, but HD was cut short due to hypotension). Pt has been afebrile throughout the night, SB-SR, and slightly hypertensive at times. Pt was bathed and received a complete linen change. Ellie Carrasco RN
[2021-05-22 07:59] LABS: ANISOCYTOSIS 1+; NUCLEATED RED BLOOD CELLS 1 /100WBC (0-0); PLATELET ESTIMATE NORMAL; TOTAL CELLS COUNTED 100
[2021-05-22 08:00] LABS: HYPOCHROMASIA 1+; POLYCHROMASIA FEW; SCHISTOCYTES 1+
[2021-05-22] MEDS: sertraline 25mg tablet CORPAK SCH (08:09)
[2021-05-22] MEDS: methylPREDNISolone sod succ/PF 40mg inj. IV SCH ×2 (08:09→20:53)
[2021-05-22] MEDS: docusate sodium 100mg/10ml UD cup CORPAK SCH ×2 (08:09→20:52)
[2021-05-22] MEDS: furosemide 40mg/4ml inj IV SCH ×2 (08:10→20:53)
[2021-05-22] MEDS: cefepime 1GM in D5W 50mL 50 ML IV SCH (08:10)
[2021-05-22] MEDS: calcium carbonate/vitamin D3 tablet CORPAK SCH (08:10)
[2021-05-22] MEDS: MULTIVIT-MIN/FERROUS GLUCONATE 9 MG/15 ML LIQUID CORPAK SCH (08:10)
[2021-05-22] MEDS: calcium acetate 667mg (PhosLO) capsule CORPAK SCH ×4 (08:10→17:59)
[2021-05-22] MEDS: aspirin 81mg tab.chew CORPAK SCH (08:19)
[2021-05-22 09:23] LABS: HBSAG SCREEN Negative (Negative)
[2021-05-22] MEDS: finasteride 5mg tablet PO SCH (10:02)
[2021-05-22] MEDS: HYDROcodone/acetaminophen 5mg/325mg tablet PO PRN ×2 (14:58→23:23)
[2021-05-22] MEDS ORDERED: DEXTROSE 15 GM of carb/4 tabs (each vial/BOTTLE has 4 tablets) PO PRN ×2 (16:00)
[2021-05-22] MEDS ORDERED: insulin regular, human U-100 3ml vial - multi-dose SQ SCH (16:00)
[2021-05-22] MEDS ORDERED: glucagon, human recombinant 1mg kit SUBCUT PRN (16:00)
[2021-05-22] MEDS ORDERED: MESSAGE TO PHARMACY PO ONE (16:00)
--- NOTE | 2021-05-22 17:43 | NUR ---
PT. Fistula oozing blood this afternoon. ( Per report of NS RN, it oozed following dialysis) Notified pollution control chemist and eligibility consultant. Per rec of eligibility consultant surgeceal placed with gauze. No further signs of oozing. Notified pollution control chemist regarding NIH score required.
[2021-05-22] MEDS: gabapentin 300mg capsule CORPAK SCH (20:53)
[2021-05-22] MEDS: traZODone 50mg tablet CORPAK SCH (20:53)
[2021-05-22] MEDS ORDERED: insulin glargine (Lantus) pen - multi-dose SQ SCH (21:00)
[2021-05-22] MEDS: insulin glargine (Lantus) pen - multi-dose SQ SCH (21:10)
--- NOTE | 2021-05-22 23:00 | NUR ---
Pt continues to bleed from fistula. Added additional gauze and applied bandage for additional pressure. Held physical pressure for 5 mins. Pulses present on Left wrist. Held midnight Heparin 5000 dose. Will continue to monitor.
[2021-05-23] VITALS (24 sets, daily range): BP systolic 88–164; BP diastolic 41–77
--- NOTE | 2021-05-23 | NUR ---
Dr. Woody and charge nurse notified of fistula oozing with blood. Ordered to hold heparin. Will hold it and continue to monitor fistula.
[2021-05-23] MEDS: dexmedetomidine/D5W 100mL 100 ML IV PRN ×6 (00:08→20:50)
[2021-05-23] MEDS: insulin regular, human U-100 3ml vial - multi-dose SQ SCH ×3 (02:22→20:44)
[2021-05-23] MEDS: QUEtiapine 25mg tablet PO PRN (03:08)
[2021-05-23 03:35] LABS: D-DIMER 16.42 MG/L FEU (0-0.50)
[2021-05-23 03:43] LABS: BASOPHILS % (AUTO) 0.1 % (0-1); EOSINOPHILS # (AUTO) 0.2 X10'3 (0-0.9); EOSINOPHILS % (AUTO) 1.2 % (0-6); HEMATOCRIT 22.5 % (42.0-52.0); HEMOGLOBIN 7.2 g/dl (14.0-17.9); LYMPHOCYTES # (AUTO) 0.4 X10'3 (1.1-4.8); LYMPHOCYTES % (AUTO) 3.4 % (21-51); MEAN CORPUSCULAR HEMOGLOBIN 31.2 PG (27.0-31.0); MEAN CORPUSCULAR HGB CONC 32.2 g/dL (33.0-36.5); MEAN CORPUSCULAR VOLUME 96.9 FL (78-98); MEAN PLATELET VOLUME 8.9 FL (7.4-10.4); MONOCYTES # (AUTO) 0.4 X10'3 (0-0.9); MONOCYTES % (AUTO) 2.9 % (2-12); NEUTROPHILS % (AUTO) 92.4 % (42-75); PLATELET COUNT 236 X10'3 (140-440); RED BLOOD COUNT 2.33 X10'6 (4.70-6.10); RED CELL DISTRIBUTION WIDTH 17.6 % (11.5-14.5)
[2021-05-23 03:56] LABS: ALANINE AMINOTRANSFERASE 62 U/L (12-78); ALBUMIN 1.8 G/DL (3.4-5.0); ALBUMIN/GLOBULIN RATIO 0.6 (1.1-1.5); ALKALINE PHOSPHATASE 228 IU/L (46-116); ANION GAP 11 (8-16); ASPARTATE AMINO TRANSFERASE 28 U/L (10-37); BILIRUBIN,TOTAL 0.2 MG/DL (0.1-1.0); BLOOD UREA NITROGEN 121 MG/DL (7-18); BUN/CREATININE RATIO 37.5 (5.4-32.0); C-REACTIVE PROTEIN 3.67 MG/DL (0.0-0.5); CALCIUM 7.7 MG/DL (8.5-10.1); CHLORIDE 100 MMOL/L (99-107); CREATININE 3.23 MG/DL (0.60-1.10); GLUCOSE 207 MG/DL (70-104); MAGNESIUM 2.5 MG/DL (1.5-2.4); PHOSPHORUS 4.2 MG/DL (2.3-4.5); POTASSIUM 5.9 MMOL/L (3.5-5.1); SODIUM 141 MMOL/L (135-145); TOTAL CARBON DIOXIDE 30.3 MMOL/L (24-32); TOTAL PROTEIN 4.9 G/DL (6.4-8.2); eGFR 19 ML/MIN
--- NOTE | 2021-05-23 07:01 | NUR ---
Patient in room ICU 2042. I have received report from Demetrice ORLANDO and had the opportunity to ask questions and assume patient care.
[2021-05-23 07:25] LABS: ANISOCYTOSIS 1+; PLATELET ESTIMATE NORMAL; TOTAL CELLS COUNTED 100
[2021-05-23 07:26] LABS: POLYCHROMASIA FEW; SCHISTOCYTES 1+
[2021-05-23 07:27] LABS: HYPOCHROMASIA 1+
[2021-05-23] MEDS: furosemide 40mg/4ml inj IV SCH ×2 (07:33→20:15)
[2021-05-23] MEDS: finasteride 5mg tablet PO SCH (07:33)
[2021-05-23] MEDS: calcium carbonate/vitamin D3 tablet CORPAK SCH (07:33)
[2021-05-23] MEDS: aspirin 81mg tab.chew CORPAK SCH (07:33)
[2021-05-23] MEDS: allopurinol 100mg tablet CORPAK SCH (07:33)
[2021-05-23] MEDS: docusate sodium 100mg/10ml UD cup CORPAK SCH ×2 (07:33→20:14)
[2021-05-23] MEDS: MULTIVIT-MIN/FERROUS GLUCONATE 9 MG/15 ML LIQUID CORPAK SCH (07:33)
[2021-05-23] MEDS: methylPREDNISolone sod succ/PF 40mg inj. IV SCH ×2 (07:33→20:15)
[2021-05-23] MEDS: sertraline 25mg tablet CORPAK SCH (07:33)
[2021-05-23] MEDS: cefepime 1GM in D5W 50mL 50 ML IV SCH (07:33)
[2021-05-23] MEDS: famotidine 20mg tablet CORPAK SCH (07:33)
[2021-05-23] MEDS: calcium acetate 667mg (PhosLO) capsule CORPAK SCH ×3 (07:34→17:41)
--- NOTE | 2021-05-23 07:45 | NUR ---
F/u 05/23: Pt continues to receive TF at goal and tolerating well, remains on salter high flow at 10L per documentation. Pt continues on HD, last treatment 05/21 w/ 879ml out. Noted w/ rectal tube w/ 300ml output this morning. No change to recommendations at this time, will continue to monitor. Recommendations: 1. Continuous TF per MD; Pivot 1.5 at 54ml/hr goal to provide 1296ml volume/day, 1944 kcals, 1458ml water, and 122g protein. 2. Additional water flush per slat basket top maker given CKD V 3. PALB q /; daily wts 4. IF pt remains on NG feeds and sepsis resolved per MD; consider formula change to Nepro 1.8 at 50ml/hr goal 5. Phos binder per MD 6. Routine bowel care Addendum: 05/23/21 at [address] Amended: Links added. Addendum: 05/31/21 at [address] CORRECTION* 1. Pivot 1.5 with 54 mL/hr goal to provide 1296 mL volume/day, 1944 kcal, 972 mL water, and 122 g protein.
[2021-05-23] MEDS: heparin, porcine 5000 units/ml vial SQ SCH ×3 (08:54→23:55)
[2021-05-23] MEDS ORDERED: SODIUM ZIRCONIUM CYCLOSILICATE 10 GM POWD.PACK PO ONE (09:55)
[2021-05-23] MEDS ORDERED: albumin (human) 25% 100ml IV 100 ML IV PRN (10:10)
[2021-05-23] MEDS ORDERED: heparin 1,000 units/ml 10ml inj IV ONE (10:10)
[2021-05-23] MEDS ORDERED: EPOETIN ALFA-EPBX 20,000 UNIT/ML 1 ML MDV IV ONE (10:10)
[2021-05-23] MEDS ORDERED: heparin 1,000unit/ml 10ml vial 10 ML IV ONE (10:10)
[2021-05-23] MEDS ORDERED: heparin 1,000 units/ml 10ml inj HE ONE ×2 (10:15)
--- NOTE | 2021-05-23 11:48 | NUR ---
Pt to receive dialysis now, did not administer lokelma for that reason.
[2021-05-23] MEDS: HYDROcodone/acetaminophen 5mg/325mg tablet PO PRN (16:08)
--- NOTE | 2021-05-23 18:13 | NUR ---
Problems reprioritized. Patient report given, questions answered & plan of care reviewed with Demetrice ORLANDO.
[2021-05-23 19:27] LABS: ALBUMIN 1.7 G/DL (3.4-5.0); ANION GAP 10 (8-16); BLOOD UREA NITROGEN 63 MG/DL (7-18); CALCIUM 7.7 MG/DL (8.5-10.1); CHLORIDE 100 MMOL/L (99-107); CREATININE 1.91 MG/DL (0.60-1.10); GLUCOSE 187 MG/DL (70-104); POTASSIUM 4.3 MMOL/L (3.5-5.1); SODIUM 140 MMOL/L (135-145); TOTAL CARBON DIOXIDE 30.1 MMOL/L (24-32); eGFR 35 ML/MIN
[2021-05-23] MEDS: traZODone 50mg tablet CORPAK SCH (20:15)
[2021-05-23] MEDS: gabapentin 300mg capsule CORPAK SCH (20:15)
[2021-05-23] MEDS: temazepam 15mg capsule CORPAK PRN (20:15)
[2021-05-23] MEDS: insulin glargine (Lantus) pen - multi-dose SQ SCH (20:45)
[2021-05-24] VITALS (24 sets, daily range): BP systolic 104–195; BP diastolic 44–87
[2021-05-24] MEDS: dexmedetomidine/D5W 100mL 100 ML IV PRN ×3 (00:43→08:12)
[2021-05-24] MEDS: insulin regular, human U-100 3ml vial - multi-dose SQ SCH ×3 (02:20→20:47)
[2021-05-24 03:30] LABS: BASOPHILS # (AUTO) 0.1 X10'3 (0-0.2); BASOPHILS % (AUTO) 0.7 % (0-1); EOSINOPHILS # (AUTO) 0.2 X10'3 (0-0.9); EOSINOPHILS % (AUTO) 1.1 % (0-6); HEMATOCRIT 22.9 % (42.0-52.0); HEMOGLOBIN 7.3 g/dl (14.0-17.9); LYMPHOCYTES # (AUTO) 0.5 X10'3 (1.1-4.8); LYMPHOCYTES % (AUTO) 3.3 % (21-51); MEAN CORPUSCULAR HEMOGLOBIN 31.2 PG (27.0-31.0); MEAN CORPUSCULAR VOLUME 97.6 FL (78-98); MONOCYTES # (AUTO) 0.4 X10'3 (0-0.9); MONOCYTES % (AUTO) 2.1 % (2-12); NEUTROPHILS # (AUTO) 15.4 X10'3 (1.8-7.7); NEUTROPHILS % (AUTO) 92.8 % (42-75); PLATELET COUNT 240 X10'3 (140-440); RED BLOOD COUNT 2.35 X10'6 (4.70-6.10); RED CELL DISTRIBUTION WIDTH 17.8 % (11.5-14.5); WHITE BLOOD COUNT 16.6 X10'3 (4.5-11.0)
[2021-05-24 04:09] LABS: ALANINE AMINOTRANSFERASE 65 U/L (12-78); ALBUMIN 1.8 G/DL (3.4-5.0); ALBUMIN/GLOBULIN RATIO 0.6 (1.1-1.5); ALKALINE PHOSPHATASE 190 IU/L (46-116); ANION GAP 8 (8-16); ASPARTATE AMINO TRANSFERASE 37 U/L (10-37); BILIRUBIN,TOTAL 0.2 MG/DL (0.1-1.0); BLOOD UREA NITROGEN 77 MG/DL (7-18); BUN/CREATININE RATIO 34.1 (5.4-32.0); CALCIUM 7.5 MG/DL (8.5-10.1); CHLORIDE 100 MMOL/L (99-107); CREATININE 2.26 MG/DL (0.60-1.10); GLUCOSE 224 MG/DL (70-104); MAGNESIUM 2.3 MG/DL (1.5-2.4); PHOSPHORUS 3.8 MG/DL (2.3-4.5); POTASSIUM 5.2 MMOL/L (3.5-5.1); SODIUM 139 MMOL/L (135-145); TOTAL CARBON DIOXIDE 30.9 MMOL/L (24-32); eGFR 28 ML/MIN
[2021-05-24 04:30] LABS: PREALBUMIN 44.8 MG/DL (19-36)
[2021-05-24] MEDS: HYDROcodone/acetaminophen 5mg/325mg tablet PO PRN ×2 (07:01→15:28)
[2021-05-24] MEDS: cefepime 1GM in D5W 50mL 50 ML IV SCH (07:17)
[2021-05-24] MEDS: aspirin 81mg tab.chew CORPAK SCH (07:17)
[2021-05-24] MEDS: MULTIVIT-MIN/FERROUS GLUCONATE 9 MG/15 ML LIQUID CORPAK SCH (07:17)
[2021-05-24] MEDS: docusate sodium 100mg/10ml UD cup CORPAK SCH ×2 (07:17→20:28)
[2021-05-24] MEDS: methylPREDNISolone sod succ/PF 40mg inj. IV SCH (07:18)
[2021-05-24] MEDS: calcium carbonate/vitamin D3 tablet CORPAK SCH (07:18)
[2021-05-24] MEDS: sertraline 25mg tablet CORPAK SCH (07:18)
[2021-05-24] MEDS: heparin, porcine 5000 units/ml vial SQ SCH ×2 (07:18→16:51)
[2021-05-24] MEDS: finasteride 5mg tablet PO SCH ×2 (07:19→07:21)
[2021-05-24] MEDS: furosemide 40mg/4ml inj IV SCH ×2 (07:22→20:28)
[2021-05-24] MEDS: calcium acetate 667mg (PhosLO) capsule CORPAK SCH ×3 (07:49→18:03)
[2021-05-24] MEDS: QUEtiapine 25mg tablet PO PRN (09:14)
[2021-05-24] MEDS ORDERED: QUEtiapine 25mg tablet PO PRN (10:40)
[2021-05-24] MEDS: morphine 2 MG/ML inj. syringe IV PRN (18:06)
--- NOTE | 2021-05-24 19:06 | NUR ---
During bedside report patient's noted to be screaming out "I want love! Give me love!". DARION Chung states was has c/o of pain morphine IV given by Juliet during report. BP elevated systolic 200, HR elevated in 120s. Informed Precedex recently stopped and vitals have been within normal range when patient is not screaming out. Will continue to monitor.
[2021-05-24] MEDS ORDERED: quetiapine 100mg tablet PO SCH (20:00)
[2021-05-24] MEDS: QUEtiapine 25mg tablet PO SCH (20:28)
[2021-05-24] MEDS: gabapentin 300mg capsule CORPAK SCH (20:29)
[2021-05-24] MEDS: traZODone 50mg tablet CORPAK SCH (20:29)
[2021-05-24] MEDS: ondansetron/PF 4mg/2ml inj IV PRN (20:38)
[2021-05-24] MEDS: insulin glargine (Lantus) pen - multi-dose SQ SCH (20:44)
[2021-05-24] MEDS: temazepam 15mg capsule CORPAK PRN (22:12)
[2021-05-25] VITALS (23 sets, daily range): BP systolic 133–186; BP diastolic 58–86
[2021-05-25] MEDS: heparin, porcine 5000 units/ml vial SQ SCH ×4 (00:47→23:46)
[2021-05-25] MEDS: temazepam 15mg capsule CORPAK PRN ×2 (00:48→20:27)
--- NOTE | 2021-05-25 05:00 | NUR ---
During position change, patient's chucks pad noted to be saturated with urine. Condom cath noted to have fallen off, replaced at this time
[2021-05-25] MEDS: insulin regular, human U-100 3ml vial - multi-dose SQ SCH ×3 (07:45→20:50)
[2021-05-25] MEDS: allopurinol 100mg tablet CORPAK SCH (07:50)
[2021-05-25 07:51] LABS: BASOPHILS # (AUTO) 0.1 X10'3 (0-0.2); BASOPHILS % (AUTO) 0.3 % (0-1); EOSINOPHILS # (AUTO) 0.3 X10'3 (0-0.9); EOSINOPHILS % (AUTO) 1.2 % (0-6); HEMATOCRIT 22.9 % (42.0-52.0); HEMOGLOBIN 7.4 g/dl (14.0-17.9); LYMPHOCYTES % (AUTO) 4.1 % (21-51); MEAN CORPUSCULAR HEMOGLOBIN 31.4 PG (27.0-31.0); MEAN CORPUSCULAR HGB CONC 32.2 g/dL (33.0-36.5); MEAN CORPUSCULAR VOLUME 97.8 FL (78-98); MEAN PLATELET VOLUME 8.2 FL (7.4-10.4); MONOCYTES # (AUTO) 0.7 X10'3 (0-0.9); MONOCYTES % (AUTO) 2.6 % (2-12); NEUTROPHILS % (AUTO) 91.8 % (42-75); PLATELET COUNT 286 X10'3 (140-440); RED BLOOD COUNT 2.34 X10'6 (4.70-6.10); RED CELL DISTRIBUTION WIDTH 17.2 % (11.5-14.5)
[2021-05-25] MEDS: furosemide 40mg/4ml inj IV SCH (07:51)
[2021-05-25] MEDS: aspirin 81mg tab.chew CORPAK SCH (07:51)
[2021-05-25] MEDS: sertraline 25mg tablet CORPAK SCH (07:51)
[2021-05-25] MEDS: docusate sodium 100mg/10ml UD cup CORPAK SCH ×2 (07:51→20:00)
[2021-05-25] MEDS: calcium carbonate/vitamin D3 tablet CORPAK SCH (07:51)
[2021-05-25] MEDS: QUEtiapine 25mg tablet PO SCH ×2 (07:51→20:27)
[2021-05-25] MEDS: famotidine 20mg tablet CORPAK SCH (07:51)
[2021-05-25] MEDS: MULTIVIT-MIN/FERROUS GLUCONATE 9 MG/15 ML LIQUID CORPAK SCH (07:51)
[2021-05-25] MEDS: calcium acetate 667mg (PhosLO) capsule CORPAK SCH ×3 (07:52→18:39)
[2021-05-25] MEDS: finasteride 5mg tablet PO SCH (07:52)
[2021-05-25] MEDS: methylPREDNISolone sod succ/PF 40mg inj. IV SCH (07:52)
[2021-05-25 07:53] LABS: WHITE BLOOD COUNT 25.1 X10'3 (4.5-11.0)
[2021-05-25] MEDS ORDERED: normal saline 1000ml 250 ML IV PRN (08:00)
[2021-05-25] MEDS ORDERED: EPOETIN ALFA-EPBX 20,000 UNIT/ML 1 ML MDV IV ONE (08:00)
[2021-05-25] MEDS: furosemide 40 MG/4 ML oral solution UD cup CORPAK SCH ×2 (08:00→20:27)
[2021-05-25] MEDS ORDERED: LIDOcaine 1% (10mg/ml) 2ml vial SQ ONE (08:00)
[2021-05-25] MEDS ORDERED: heparin 1,000 units/ml 10ml inj IV ONE (08:00)
[2021-05-25] MEDS: acetaminophen 325mg/10.15ml oral unit dose solution CORPAK PRN (08:14)
[2021-05-25 08:17] LABS: ALANINE AMINOTRANSFERASE 58 U/L (12-78); ALBUMIN/GLOBULIN RATIO 0.6 (1.1-1.5); ALKALINE PHOSPHATASE 202 IU/L (46-116); ANION GAP 11 (8-16); ASPARTATE AMINO TRANSFERASE 32 U/L (10-37); BILIRUBIN,TOTAL 0.3 MG/DL (0.1-1.0); BLOOD UREA NITROGEN 104 MG/DL (7-18); BUN/CREATININE RATIO 32.6 (5.4-32.0); CALCIUM 8.1 MG/DL (8.5-10.1); CHLORIDE 102 MMOL/L (99-107); CREATININE 3.19 MG/DL (0.60-1.10); GLUCOSE 287 MG/DL (70-104); MAGNESIUM 2.1 MG/DL (1.5-2.4); PHOSPHORUS 3.8 MG/DL (2.3-4.5); POTASSIUM 5.5 MMOL/L (3.5-5.1); SODIUM 142 MMOL/L (135-145); TOTAL CARBON DIOXIDE 29.3 MMOL/L (24-32); TOTAL PROTEIN 5.3 G/DL (6.4-8.2); eGFR 19 ML/MIN
[2021-05-25 08:24] LABS: ANISOCYTOSIS 1+; PLATELET ESTIMATE NORMAL; TOTAL CELLS COUNTED 100
[2021-05-25 08:25] LABS: MICROCYTOSIS 1+; SCHISTOCYTES FEW
[2021-05-25 08:26] LABS: POLYCHROMASIA FEW
[2021-05-25] MEDS: morphine 2 MG/ML inj. syringe IV PRN ×2 (08:55→19:56)
[2021-05-25] MEDS ORDERED: normal saline 1000ml 1,000 ML IV ONE (09:05)
[2021-05-25] MEDS: labetalol 20mg/4ml (5mg/ml) syringe IV PRN ×3 (10:29→16:39)
[2021-05-25 10:43] LABS: C-REACTIVE PROTEIN 6.06 MG/DL (0.0-0.5)
[2021-05-25] MEDS: normal saline 1000ml 1,000 ML IV SCH (11:00)
[2021-05-25] MEDS ORDERED: VANCOMYCIN 1GM/200ML IVPB 200 ML IV ONE (11:05)
[2021-05-25] MEDS ORDERED: cefepime 2g/NS 100ml ADVANTAGE 100 ML IV ONE (11:41)
[2021-05-25] MEDS ORDERED: VANCOMYCIN 1GM/200ML IVPB 200 ML IV PRN (11:45)
[2021-05-25] MEDS ORDERED: cefepime 1GM in D5W 50mL 50 ML IV ONE (11:50)
[2021-05-25] MEDS: hydrALAZINE 20mg/ml inj. IV PRN ×3 (12:16→22:46)
[2021-05-25] MEDS: QUEtiapine 25mg tablet PO PRN (13:13)
[2021-05-25] MEDS: gabapentin 300mg capsule CORPAK SCH (20:29)
[2021-05-25] MEDS: traZODone 50mg tablet CORPAK SCH (20:29)
[2021-05-25] MEDS: insulin glargine (Lantus) pen - multi-dose SQ SCH (20:52)
[2021-05-26] VITALS (28 sets, daily range): BP systolic 126–174; BP diastolic 58–95
[2021-05-26] MEDS: QUEtiapine 25mg tablet PO PRN (01:30)
[2021-05-26] MEDS: normal saline 1000ml 1,000 ML IV SCH ×4 (01:30→17:45)
[2021-05-26] MEDS: insulin regular, human U-100 3ml vial - multi-dose SQ SCH ×4 (02:12→20:18)
[2021-05-26] MEDS: temazepam 15mg capsule CORPAK PRN (02:49)
[2021-05-26] MEDS: HYDROcodone/acetaminophen 5mg/325mg tablet PO PRN ×2 (02:55→08:27)
[2021-05-26] MEDS: VANCOMYCIN LEVEL IV SCH (03:00)
[2021-05-26 03:31] LABS: BASOPHILS # (AUTO) 0.1 X10'3 (0-0.2); BASOPHILS % (AUTO) 0.4 % (0-1); EOSINOPHILS # (AUTO) 0.2 X10'3 (0-0.9); EOSINOPHILS % (AUTO) 1.2 % (0-6); LYMPHOCYTES % (AUTO) 5.1 % (21-51); MEAN CORPUSCULAR HEMOGLOBIN 31.4 PG (27.0-31.0); MEAN CORPUSCULAR HGB CONC 32.2 g/dL (33.0-36.5); MEAN CORPUSCULAR VOLUME 97.5 FL (78-98); MEAN PLATELET VOLUME 8.6 FL (7.4-10.4); MONOCYTES # (AUTO) 0.4 X10'3 (0-0.9); MONOCYTES % (AUTO) 2.1 % (2-12); NEUTROPHILS # (AUTO) 18.6 X10'3 (1.8-7.7); NEUTROPHILS % (AUTO) 91.2 % (42-75); PLATELET COUNT 228 X10'3 (140-440); RED BLOOD COUNT 2.02 X10'6 (4.70-6.10); RED CELL DISTRIBUTION WIDTH 17.7 % (11.5-14.5); WHITE BLOOD COUNT 20.4 X10'3 (4.5-11.0)
[2021-05-26 03:41] LABS: HEMATOCRIT 19.7 % (42.0-52.0); HEMOGLOBIN 6.3 g/dl (14.0-17.9)
--- NOTE | 2021-05-26 04:00 | NUR ---
Called Dr. Franklin to notify him that there had been a change in condition. Patient was in sinus tach 120-140's and had a critical lab value of hgb of 6. The drMirta order one unit of blood to be given and a type and cross. Will begin to transfuse unit of blood once it is ready.
[2021-05-26 04:11] LABS: ALANINE AMINOTRANSFERASE 50 U/L (12-78); ALBUMIN 1.9 G/DL (3.4-5.0); ALBUMIN/GLOBULIN RATIO 0.6 (1.1-1.5); ANION GAP 13 (8-16); ASPARTATE AMINO TRANSFERASE 29 U/L (10-37); BILIRUBIN,TOTAL 0.3 MG/DL (0.1-1.0); BLOOD UREA NITROGEN 47 MG/DL (7-18); BUN/CREATININE RATIO 26.4 (5.4-32.0); CALCIUM 7.7 MG/DL (8.5-10.1); CHLORIDE 105 MMOL/L (99-107); CREATININE 1.78 MG/DL (0.60-1.10); GLUCOSE 114 MG/DL (70-104); MAGNESIUM 1.9 MG/DL (1.5-2.4); PHOSPHORUS 2.6 MG/DL (2.3-4.5); POTASSIUM 4.1 MMOL/L (3.5-5.1); SODIUM 146 MMOL/L (135-145); TOTAL CARBON DIOXIDE 28.2 MMOL/L (24-32); TOTAL PROTEIN 4.9 G/DL (6.4-8.2); VANCOMYCIN,RANDOM 14.4 UG/ML; eGFR 37 ML/MIN
[2021-05-26] MEDS: finasteride 5mg tablet PO SCH (08:00)
[2021-05-26] MEDS ORDERED: cefepime inj. 0.5 GM in normal saline 100ml IV soln 100 ML IV SCH (08:00)
[2021-05-26] MEDS: heparin, porcine 5000 units/ml vial SQ SCH ×3 (08:00→23:28)
[2021-05-26] MEDS ORDERED: VANCOMYCIN 1GM/200ML IVPB 200 ML IV ONE (08:00)
[2021-05-26] MEDS: calcium carbonate/vitamin D3 tablet CORPAK SCH (08:24)
[2021-05-26] MEDS: aspirin 81mg tab.chew CORPAK SCH (08:24)
[2021-05-26] MEDS: sertraline 25mg tablet CORPAK SCH (08:24)
[2021-05-26] MEDS: QUEtiapine 25mg tablet PO SCH ×2 (08:25→19:48)
[2021-05-26] MEDS: furosemide 40 MG/4 ML oral solution UD cup CORPAK SCH (08:27)
[2021-05-26] MEDS: methylPREDNISolone sod succ/PF 40mg inj. IV SCH (08:29)
[2021-05-26] MEDS: MULTIVIT-MIN/FERROUS GLUCONATE 9 MG/15 ML LIQUID CORPAK SCH (08:30)
[2021-05-26] MEDS: docusate sodium 100mg/10ml UD cup CORPAK SCH ×2 (08:30→19:48)
[2021-05-26] MEDS: calcium acetate 667mg (PhosLO) capsule CORPAK SCH ×3 (08:33→18:28)
--- NOTE | 2021-05-26 11:51 | NUR ---
F/u 05/26: Pt continues to receive TF at goal and tolerating well, remains on salter high flow at 6L, down from 10L per documentation. Currently on full liquid/Zearing diet though pt refuses meals per SALES REPRESENTATIVE PUBLIC UTILITIES note and no diet PO documentation in EMR past 3 days. Pt continues on HD, last treatment 05/25 w/ no fluid removed per systems checkout mechanic. Noted w/ rectal tube w/ 300ml output this morning. No change to recommendations at this time, will continue to monitor. Recommendations: 1. Continuous TF per MD; Pivot 1.5 at 54ml/hr goal to provide 1296ml volume/day, 1944 kcals, 1458ml water, and 122g protein. 2. Additional water flush per consulting systems engineer given CKD V, on HD 3. Continue full liquid/nectar diet per SALES REPRESENTATIVE PUBLIC UTILITIES/MD, encourage PO 4. IF poor PO intake continues, consider stopping PO diet given nutritional needs met w/ TF 5. PALB q /; daily wts 6. IF pt remains on NG feeds and sepsis resolved per MD; consider formula change to Nepro 1.8 at 50ml/hr goal 7. Phos binder per MD 8. Routine bowel care Addendum: 05/26/21 at [address] RD Amended: Links added. Addendum: 05/26/21 at [address] DEB has reviewed and approves of above note. Addendum: 05/31/21 at [address] CORRECTION* 1. Pivot 1.5 with 54 mL/hr goal to provide 1296 mL volume/day, 1944 kcal, 972 mL water, and 122 g protein.
[2021-05-26] MEDS: meropenem inj 500 MG in normal saline 100ml IV soln 100 ML IV SCH (12:07)
[2021-05-26] MEDS: labetalol 20mg/4ml (5mg/ml) syringe IV PRN ×3 (12:19→19:48)
[2021-05-26] MEDS: ondansetron/PF 4mg/2ml inj IV PRN (15:53)
[2021-05-26] MEDS: gabapentin 300mg capsule CORPAK SCH (20:15)
[2021-05-26] MEDS: traZODone 50mg tablet CORPAK SCH (20:15)
[2021-05-26] MEDS: insulin glargine (Lantus) pen - multi-dose SQ SCH (20:19)
[2021-05-27] VITALS (24 sets, daily range): BP systolic 137–204; BP diastolic 60–91
[2021-05-27] MEDS: normal saline 1000ml 1,000 ML IV SCH ×2 (02:13→09:45)
[2021-05-27] MEDS: dextrose 50%-water 50ml dispensing syringe IV PRN (02:27)
[2021-05-27] MEDS: labetalol 20mg/4ml (5mg/ml) syringe IV PRN ×4 (03:02→16:36)
[2021-05-27] MEDS: VANCOMYCIN LEVEL IV SCH (03:30)
[2021-05-27] MEDS: hydrALAZINE 20mg/ml inj. IV PRN (04:06)
[2021-05-27 04:30] LABS: BASOPHILS # (AUTO) 0.1 X10'3 (0-0.2); BASOPHILS % (AUTO) 0.5 % (0-1); EOSINOPHILS # (AUTO) 0.2 X10'3 (0-0.9); HEMATOCRIT 23.9 % (42.0-52.0); HEMOGLOBIN 7.5 g/dl (14.0-17.9); LYMPHOCYTES # (AUTO) 0.7 X10'3 (1.1-4.8); LYMPHOCYTES % (AUTO) 3.3 % (21-51); MEAN CORPUSCULAR HEMOGLOBIN 30.8 PG (27.0-31.0); MEAN CORPUSCULAR HGB CONC 31.4 g/dL (33.0-36.5); MEAN CORPUSCULAR VOLUME 98.3 FL (78-98); MEAN PLATELET VOLUME 8.7 FL (7.4-10.4); MONOCYTES # (AUTO) 0.6 X10'3 (0-0.9); MONOCYTES % (AUTO) 2.5 % (2-12); NEUTROPHILS # (AUTO) 20.3 X10'3 (1.8-7.7); NEUTROPHILS % (AUTO) 92.7 % (42-75); PLATELET COUNT 209 X10'3 (140-440); RED BLOOD COUNT 2.43 X10'6 (4.70-6.10); RED CELL DISTRIBUTION WIDTH 20.2 % (11.5-14.5); WHITE BLOOD COUNT 21.9 X10'3 (4.5-11.0)
[2021-05-27 04:46] LABS: ALANINE AMINOTRANSFERASE 46 U/L (12-78); ALBUMIN 1.9 G/DL (3.4-5.0); ALBUMIN/GLOBULIN RATIO 0.6 (1.1-1.5); ALKALINE PHOSPHATASE 144 IU/L (46-116); ANION GAP 9 (8-16); ASPARTATE AMINO TRANSFERASE 30 U/L (10-37); BILIRUBIN,TOTAL 0.2 MG/DL (0.1-1.0); BLOOD UREA NITROGEN 59 MG/DL (7-18); BUN/CREATININE RATIO 26.1 (5.4-32.0); C-REACTIVE PROTEIN 11.49 MG/DL (0.0-0.5); CALCIUM 7.8 MG/DL (8.5-10.1); CHLORIDE 112 MMOL/L (99-107); CREATININE 2.26 MG/DL (0.60-1.10); PHOSPHORUS 3.8 MG/DL (2.3-4.5); PREALBUMIN 38.9 MG/DL (19-36); SODIUM 147 MMOL/L (135-145); TOTAL CARBON DIOXIDE 26.2 MMOL/L (24-32); TOTAL PROTEIN 4.9 G/DL (6.4-8.2); eGFR 28 ML/MIN
[2021-05-27 04:52] LABS: GLUCOSE 36 MG/DL (70-104)
[2021-05-27 05:14] LABS: PLATELET ESTIMATE NORMAL
[2021-05-27 05:15] LABS: ANISOCYTOSIS 3+
[2021-05-27 05:18] LABS: BURR CELLS FEW
[2021-05-27 05:19] LABS: ACANTHOCYTES FEW; POLYCHROMASIA FEW; TEAR DROP CELLS FEW
[2021-05-27] MEDS: morphine 2 MG/ML inj. syringe IV PRN ×3 (05:27→22:16)
[2021-05-27] MEDS: meropenem inj 500 MG in normal saline 100ml IV soln 100 ML IV SCH (07:11)
[2021-05-27] MEDS: sertraline 25mg tablet CORPAK SCH (07:12)
[2021-05-27] MEDS: allopurinol 100mg tablet CORPAK SCH (07:12)
[2021-05-27] MEDS: aspirin 81mg tab.chew CORPAK SCH (07:12)
[2021-05-27] MEDS: calcium carbonate/vitamin D3 tablet CORPAK SCH (07:12)
[2021-05-27] MEDS: methylPREDNISolone sod succ/PF 40mg inj. IV SCH (07:12)
[2021-05-27] MEDS: heparin, porcine 5000 units/ml vial SQ SCH ×3 (07:12→22:59)
[2021-05-27] MEDS: QUEtiapine 25mg tablet PO SCH ×2 (07:12→19:45)
[2021-05-27] MEDS: famotidine 20mg tablet CORPAK SCH (07:12)
[2021-05-27] MEDS: finasteride 5mg tablet PO SCH (07:13)
[2021-05-27] MEDS: docusate sodium 100mg/10ml UD cup CORPAK SCH ×2 (07:13→19:43)
[2021-05-27] MEDS: calcium acetate 667mg (PhosLO) capsule CORPAK SCH ×3 (07:13→18:26)
[2021-05-27] MEDS: MULTIVIT-MIN/FERROUS GLUCONATE 9 MG/15 ML LIQUID CORPAK SCH (07:13)
[2021-05-27] MEDS ORDERED: EPOETIN ALFA-EPBX 20,000 UNIT/ML 1 ML MDV IV ONE (08:00)
[2021-05-27] MEDS ORDERED: heparin 1,000 units/ml 10ml inj IV ONE (08:00)
[2021-05-27] MEDS ORDERED: LIDOcaine 1% (10mg/ml) 2ml vial SQ ONE (08:00)
[2021-05-27] MEDS ORDERED: normal saline 1000ml 250 ML IV PRN (08:00)
[2021-05-27] MEDS: insulin regular, human U-100 3ml vial - multi-dose SQ SCH (08:34)
[2021-05-27] MEDS ORDERED: metoprolol tartrate 25mg tablet PO SCH ×2 (09:00→14:00)
[2021-05-27] MEDS: HYDROcodone/acetaminophen 5mg/325mg tablet PO PRN ×2 (11:26→19:43)
[2021-05-27] MEDS: metoprolol tartrate 25mg tablet PO SCH ×4 (11:26→19:44)
[2021-05-27] MEDS: furosemide 10 MG/1 ML 10ml inj IV SCH ×2 (16:34→19:45)
[2021-05-27] MEDS: hydrALAZINE 20mg/ml inj. IV SCH ×2 (17:36→19:44)
[2021-05-27] MEDS: metolazone 2.5mg tablet PO SCH ×2 (17:58→19:50)
[2021-05-27] MEDS: gabapentin 300mg capsule CORPAK SCH (19:45)
[2021-05-27] MEDS: insulin glargine (Lantus) pen - multi-dose SQ SCH (19:46)
[2021-05-27] MEDS: traZODone 50mg tablet CORPAK SCH (20:55)
[2021-05-27] MEDS: temazepam 15mg capsule CORPAK PRN (22:56)
[2021-05-28] VITALS (24 sets, daily range): BP systolic 101–179; BP diastolic 42–88
[2021-05-28] MEDS: QUEtiapine 25mg tablet PO PRN (00:54)
[2021-05-28] MEDS: furosemide 10 MG/1 ML 10ml inj IV SCH ×4 (01:00→20:00)
[2021-05-28] MEDS: hydrALAZINE 20mg/ml inj. IV SCH ×4 (01:01→21:50)
[2021-05-28] MEDS: metoprolol tartrate 25mg tablet PO SCH ×4 (01:01→21:47)
[2021-05-28] MEDS: insulin regular, human U-100 3ml vial - multi-dose SQ SCH ×2 (01:26→08:26)
[2021-05-28] MEDS: VANCOMYCIN LEVEL IV SCH (02:16)
[2021-05-28 02:34] LABS: BASOPHILS # (AUTO) 0.1 X10'3 (0-0.2); BASOPHILS % (AUTO) 0.4 % (0-1); EOSINOPHILS # (AUTO) 0.1 X10'3 (0-0.9); EOSINOPHILS % (AUTO) 0.6 % (0-6); HEMATOCRIT 24.9 % (42.0-52.0); HEMOGLOBIN 7.8 g/dl (14.0-17.9); LYMPHOCYTES # (AUTO) 0.7 X10'3 (1.1-4.8); LYMPHOCYTES % (AUTO) 2.9 % (21-51); MEAN CORPUSCULAR HEMOGLOBIN 31.5 PG (27.0-31.0); MEAN CORPUSCULAR HGB CONC 31.4 g/dL (33.0-36.5); MEAN CORPUSCULAR VOLUME 100.3 FL (78-98); MEAN PLATELET VOLUME 8.6 FL (7.4-10.4); MONOCYTES # (AUTO) 0.6 X10'3 (0-0.9); MONOCYTES % (AUTO) 2.4 % (2-12); NEUTROPHILS # (AUTO) 22.5 X10'3 (1.8-7.7); NEUTROPHILS % (AUTO) 93.7 % (42-75); PLATELET COUNT 220 X10'3 (140-440); RED BLOOD COUNT 2.48 X10'6 (4.70-6.10)
[2021-05-28 02:55] LABS: ALANINE AMINOTRANSFERASE 47 U/L (12-78); ALBUMIN 2.1 G/DL (3.4-5.0); ALBUMIN/GLOBULIN RATIO 0.6 (1.1-1.5); ALKALINE PHOSPHATASE 165 IU/L (46-116); ANION GAP 12 (8-16); ASPARTATE AMINO TRANSFERASE 36 U/L (10-37); BILIRUBIN,TOTAL 0.4 MG/DL (0.1-1.0); BLOOD UREA NITROGEN 77 MG/DL (7-18); BUN/CREATININE RATIO 27.8 (5.4-32.0); CALCIUM 8.6 MG/DL (8.5-10.1); CHLORIDE 110 MMOL/L (99-107); CREATININE 2.77 MG/DL (0.60-1.10); GLUCOSE 167 MG/DL (70-104); MAGNESIUM 2.2 MG/DL (1.5-2.4); PHOSPHORUS 4.7 MG/DL (2.3-4.5); POTASSIUM 4.9 MMOL/L (3.5-5.1); SODIUM 146 MMOL/L (135-145); TOTAL CARBON DIOXIDE 23.9 MMOL/L (24-32); TOTAL PROTEIN 5.7 G/DL (6.4-8.2); VANCOMYCIN,RANDOM 19.1 UG/ML; eGFR 22 ML/MIN
[2021-05-28 04:20] LABS: ACANTHOCYTES FEW; ANISOCYTOSIS 3+; BURR CELLS 1+; PLATELET ESTIMATE NORMAL
[2021-05-28 04:21] LABS: POLYCHROMASIA FEW; TEAR DROP CELLS FEW
[2021-05-28] MEDS: HYDROcodone/acetaminophen 5mg/325mg tablet PO PRN ×2 (04:57→07:23)
--- NOTE | 2021-05-28 06:43 | NUR ---
patient currently on high flow and non rebreather, attempted to place patient on bipap saturations dropped to 89%, placed back on high flow and non rebreather saturations 98%.
[2021-05-28] MEDS: morphine 2 MG/ML inj. syringe IV PRN (07:19)
[2021-05-28] MEDS: docusate sodium 100mg/10ml UD cup CORPAK SCH ×2 (07:20→21:46)
[2021-05-28] MEDS: aspirin 81mg tab.chew CORPAK SCH (07:20)
[2021-05-28] MEDS: methylPREDNISolone sod succ/PF 40mg inj. IV SCH (07:20)
[2021-05-28] MEDS: MULTIVIT-MIN/FERROUS GLUCONATE 9 MG/15 ML LIQUID CORPAK SCH (07:21)
[2021-05-28] MEDS: QUEtiapine 25mg tablet PO SCH ×2 (07:21→21:47)
[2021-05-28] MEDS: sertraline 25mg tablet CORPAK SCH (07:21)
[2021-05-28] MEDS: calcium carbonate/vitamin D3 tablet CORPAK SCH (07:21)
[2021-05-28] MEDS: heparin, porcine 5000 units/ml vial SQ SCH ×3 (07:22→23:07)
[2021-05-28] MEDS: calcium acetate 667mg (PhosLO) capsule CORPAK SCH ×3 (07:23→17:54)
[2021-05-28] MEDS: meropenem inj 500 MG in normal saline 100ml IV soln 100 ML IV SCH (07:24)
[2021-05-28] MEDS: finasteride 5mg tablet PO SCH (07:44)
[2021-05-28] MEDS: metolazone 2.5mg tablet PO SCH ×2 (08:12→21:48)
--- NOTE | 2021-05-28 10:15 | NUR ---
Walked into patient room to assess noted patient was not awake attempted to arouse by calling out his name no response, performed sternal rub still no response, patient vital signs within normal range patient on high flow nc at 15L and non rebreather at 15L as well with oxygen saturations at 99%. notified MD ordered ABG, respiratory therapist paged and notified.
[2021-05-28] MEDS ORDERED: normal saline 1000ml 250 ML IV PRN (10:20)
[2021-05-28] MEDS ORDERED: LIDOcaine 1% (10mg/ml) 2ml vial SQ ONE (10:20)
[2021-05-28] MEDS ORDERED: EPOETIN ALFA-EPBX 20,000 UNIT/ML 1 ML MDV IV ONE (10:20)
[2021-05-28] MEDS ORDERED: heparin 1,000 units/ml 10ml inj IV ONE (10:20)
--- NOTE | 2021-05-28 11:15 | NUR ---
Abg drawn received results therapist, notified of results patient placed on Bipap will continue to monitor.
[2021-05-28 11:21] LABS: ABG BASE EXCESS -2.1 mmol/L (-2.0-2.0); ABG PCO2 (T) 73.7 mmHg (35.0-48.0); ABG PO2 (T) 104.7 mmHg (75.0-100.0); FCOHb 0.1 % (0.0-3.9); FLOW 15 L/min; FMetHb 0.3 % (0.0-1.5); FO2Hb 96.6 % (94-97); PATIENT TEMPERATURE 36.3; TOTAL HEMOGLOBIN 8.5 G/dl (14.0-18.0)
[2021-05-28 13:09] LABS: ABG BASE EXCESS -1.9 mmol/L (-2.0-2.0); ABG HCO3 26.4 mmol/L (22.0-26.0); ABG OXYGEN SATURATION 92.3 % (94-97); ABG PCO2 (T) 64.4 mmHg (35.0-48.0); FCOHb 0.3 % (0.0-3.9); FMetHb 0.2 % (0.0-1.5); FO2Hb 91.8 % (94-97); PATIENT TEMPERATURE 36.3; PEEP 5 cm H2O; TOTAL HEMOGLOBIN 8.9 G/dl (14.0-18.0)
--- NOTE | 2021-05-28 13:30 | NUR ---
Noted patient beginning to wake up, opens eyes when name is called and moving arms slightly new abg drawn, made aware of results.
[2021-05-28] MEDS ORDERED: midazolam 1 mg/ML 2ml injection ONE (16:50)
[2021-05-28] MEDS ORDERED: heparin 1,000 units/ml 10ml inj HE ONE ×2 (17:15)
[2021-05-28] MEDS ORDERED: midazolam 1 mg/ML 2ml injection IV ONE (17:20)
--- NOTE | 2021-05-28 17:30 | NUR ---
Dialysis nurse at bedside, unable to access left arm fistula, notified ordered for samantha to be placed. Called Son Mathew notified him of the current situation and the necessity of Dialysis let him know that the dialysis nurse has not been successful in accessing the fistula 2 days in a row and that samantha catheter placement is necessary so that he doesnt miss treatment. Son became extremely angry asking if this was a surgical procedure, let him know that it was not it is done at bedside by the doctor and it only takes about 15min. let him know that it was also a temporary line. he continued to yell stating that "it sounded like this is just you trying to rack up the medical bill this is just about money" Let the son know that is not the case we are just trying to make sure he doesnt miss a dialysis session and I just needed consent from him, he began to then yell that he obviously doesnt have a choice he already has 2 family members and doesnt want a third, I attempted to sympathize but patient was very distraught directed call to charge nurse to obtain consent. Line placed by Dr. Jenkins with HD nurse at bedside ready to start dialysis.
[2021-05-28] MEDS: insulin glargine (Lantus) pen - multi-dose SQ SCH (21:00)
[2021-05-28] MEDS: gabapentin 300mg capsule CORPAK SCH (21:48)
[2021-05-28] MEDS: traZODone 50mg tablet CORPAK SCH (21:48)
[2021-05-29] VITALS (35 sets, daily range): BP systolic 58–184; BP diastolic 27–70
[2021-05-29] MEDS: furosemide 10 MG/1 ML 10ml inj IV SCH (02:00)
[2021-05-29] MEDS: metoprolol tartrate 25mg tablet PO SCH ×5 (02:00→23:50)
[2021-05-29 02:05] LABS: ABG BASE EXCESS -3.6 mmol/L (-2.0-2.0); ABG HCO3 26.5 mmol/L (22.0-26.0); ABG OXYGEN SATURATION 78.2 % (94-97); ABG PCO2 (T) 83.1 mmHg (35.0-48.0); ABG PO2 (T) 50.5 mmHg (75.0-100.0); ALLEN'S TEST POSITIVE; FCOHb 0.3 % (0.0-3.9); FMetHb 0.3 % (0.0-1.5); FO2Hb 77.7 % (94-97); RESPIRATORY RATE 12 b/min
[2021-05-29] MEDS ORDERED: NORepinephrine 8mg/ 250ml NS 250 ML IV ONE ×2 (02:06→09:10)
[2021-05-29] MEDS ORDERED: albuterol 2.5 MG/3 ML nebule CONTNEB PRN (02:50)
[2021-05-29] MEDS ORDERED: tPA-cathflo 2 MG/2 ml IV flush ICATH ONE ×2 (03:00)
[2021-05-29 03:09] LABS: ABG BASE EXCESS -7.9 mmol/L (-2.0-2.0); ABG HCO3 21.5 mmol/L (22.0-26.0); ABG OXYGEN SATURATION 98.4 % (94-97); ABG PCO2 (T) 68.1 mmHg (35.0-48.0); ABG PO2 (T) 145.8 mmHg (75.0-100.0); ALLEN'S TEST POSITIVE; FCOHb 0.1 % (0.0-3.9); FMetHb 0.2 % (0.0-1.5); FO2Hb 98.1 % (94-97); PEEP 5 cm H2O; RESPIRATORY RATE 18 b/min; TIDAL VOLUME 400 mL; TOTAL HEMOGLOBIN 9.1 G/dl (14.0-18.0)
[2021-05-29 03:15] LABS: BASOPHILS # (AUTO) 0.1 X10'3 (0-0.2); BASOPHILS % (AUTO) 0.3 % (0-1); EOSINOPHILS # (AUTO) 0.1 X10'3 (0-0.9); EOSINOPHILS % (AUTO) 0.4 % (0-6); HEMATOCRIT 26.2 % (42.0-52.0); HEMOGLOBIN 7.9 g/dl (14.0-17.9); LYMPHOCYTES # (AUTO) 1.5 X10'3 (1.1-4.8); LYMPHOCYTES % (AUTO) 4.9 % (21-51); MEAN CORPUSCULAR HEMOGLOBIN 30.8 PG (27.0-31.0); MEAN CORPUSCULAR HGB CONC 30.3 g/dL (33.0-36.5); MEAN CORPUSCULAR VOLUME 101.7 FL (78-98); MEAN PLATELET VOLUME 8.2 FL (7.4-10.4); MONOCYTES # (AUTO) 1.4 X10'3 (0-0.9); MONOCYTES % (AUTO) 4.6 % (2-12); NEUTROPHILS # (AUTO) 26.9 X10'3 (1.8-7.7); NEUTROPHILS % (AUTO) 89.8 % (42-75); PLATELET COUNT 228 X10'3 (140-440); RED BLOOD COUNT 2.58 X10'6 (4.70-6.10); RED CELL DISTRIBUTION WIDTH 21.7 % (11.5-14.5)
[2021-05-29] MEDS ORDERED: fentaNYL/PF 50MCG/1 ML 2ML syringe IV ONE (03:20)
[2021-05-29 03:25] LABS: ALANINE AMINOTRANSFERASE 53 U/L (12-78); ALBUMIN 2.1 G/DL (3.4-5.0); ALBUMIN/GLOBULIN RATIO 0.5 (1.1-1.5); ALKALINE PHOSPHATASE 228 IU/L (46-116); ANION GAP 12 (8-16); ASPARTATE AMINO TRANSFERASE 42 U/L (10-37); BILIRUBIN,TOTAL 0.4 MG/DL (0.1-1.0); BLOOD UREA NITROGEN 41 MG/DL (7-18); BUN/CREATININE RATIO 20.1 (5.4-32.0); CALCIUM 9.1 MG/DL (8.5-10.1); CHLORIDE 105 MMOL/L (99-107); CREATININE 2.04 MG/DL (0.60-1.10); GLUCOSE 306 MG/DL (70-104); MAGNESIUM 2.2 MG/DL (1.5-2.4); POTASSIUM 5.1 MMOL/L (3.5-5.1); SODIUM 142 MMOL/L (135-145); TOTAL CARBON DIOXIDE 24.7 MMOL/L (24-32); VANCOMYCIN,RANDOM 12.4 UG/ML; eGFR 32 ML/MIN
[2021-05-29] MEDS ORDERED: fentaNYL/PF 50MCG/1 ML 2ML syringe IV PRN ×2 (03:35→04:40)
[2021-05-29] MEDS: insulin regular, human U-100 3ml vial - multi-dose SQ SCH ×2 (04:07→10:20)
[2021-05-29] MEDS: dexmedetomidine/D5W 100mL 100 ML IV SCH ×2 (04:20→16:53)
[2021-05-29] MEDS ORDERED: propofol 1000mg/100ml bottle 100 ML IV ONE (04:38)
[2021-05-29] MEDS ORDERED: FENTANYL-0.9 % NACL/PF 100 ML IV PRN (04:40)
[2021-05-29] MEDS: propofol 1000mg/100ml bottle 100 ML IV SCH (04:48)
[2021-05-29] MEDS ORDERED: heparin 10,000 units/1 ML INJ IV ONE (05:30)
[2021-05-29] MEDS ORDERED: heparin 10,000 units/1 ML INJ IV PRN (05:30)
[2021-05-29 05:32] LABS: ANISOCYTOSIS 3+; PLATELET ESTIMATE NORMAL; TOTAL CELLS COUNTED 100
[2021-05-29 05:33] LABS: ACANTHOCYTES FEW; BURR CELLS 1+; STOMATOCYTES FEW; TEAR DROP CELLS FEW
--- NOTE | 2021-05-29 05:39 | NUR ---
Approximately 0200 hrs pt began to desaturate and was obtunded. Respiratory contacted for abg and ER for intubation. Pt then became bradycardic and went into cardiac arrest. Dr. Vigil notified.
[2021-05-29 05:47] LABS: OXYGEN SATURATION (MIXED VEN) 69.1 % (60-80); PO2 MIXED VENOUS (TEMP COR) 30.5 mmHg (35-46)
--- NOTE | 2021-05-29 05:50 | NUR ---
0521 pt desaturated and code blue called. CPR was not initiated and one dose of epi given. Dr Hernández notified.
[2021-05-29] MEDS: heparin 25,000 UNIT/250ml bag 250 ML IV SCH ×2 (05:54→23:49)
[2021-05-29] MEDS: hydrALAZINE 20mg/ml inj. IV SCH ×5 (06:37→23:50)
[2021-05-29] MEDS: epiNEPHrine 5 MG in NS 250ml IV.SOLN IV SCH ×3 (06:38→23:50)
[2021-05-29] MEDS: VANCOMYCIN LEVEL IV SCH ×2 (06:38→23:51)
[2021-05-29] MEDS ORDERED: cefepime inj. 0.5 GM in normal saline 100ml IV soln 100 ML IV SCH (08:00)
[2021-05-29 08:30] LABS: ABG BASE EXCESS -2.2 mmol/L (-2.0-2.0); ABG OXYGEN SATURATION 96.6 % (94-97); ABG PCO2 (T) 46.4 mmHg (35.0-48.0); ABG PO2 (T) 84.5 mmHg (75.0-100.0); ALLEN'S TEST POSITIVE; FMetHb 0.3 % (0.0-1.5); FO2Hb 96.3 % (94-97); PEEP 5 cm H2O; RESPIRATORY RATE 25 b/min; TIDAL VOLUME 525 mL; TOTAL HEMOGLOBIN 8.5 G/dl (14.0-18.0)
[2021-05-29] MEDS ORDERED: VANCOMYCIN 1GM/200ML IVPB 200 ML IV ONE (09:00)
[2021-05-29] MEDS: FENTANYL-0.9 % NACL/PF 100 ML IV PRN ×2 (09:46→23:45)
[2021-05-29] MEDS: MULTIVIT-MIN/FERROUS GLUCONATE 9 MG/15 ML LIQUID CORPAK SCH (10:02)
[2021-05-29] MEDS: docusate sodium 100mg/10ml UD cup CORPAK SCH ×2 (10:03→20:00)
[2021-05-29] MEDS: aspirin 81mg tab.chew CORPAK SCH (10:03)
[2021-05-29] MEDS: QUEtiapine 25mg tablet PO SCH ×2 (10:03→21:07)
[2021-05-29] MEDS: famotidine 20mg tablet CORPAK SCH (10:03)
[2021-05-29] MEDS: methylPREDNISolone sod succ/PF 40mg inj. IV SCH (10:04)
[2021-05-29] MEDS: calcium carbonate/vitamin D3 tablet CORPAK SCH (10:04)
[2021-05-29] MEDS: allopurinol 100mg tablet CORPAK SCH (10:04)
[2021-05-29] MEDS: finasteride 5mg tablet PO SCH (10:04)
[2021-05-29] MEDS: sertraline 25mg tablet CORPAK SCH (10:04)
[2021-05-29] MEDS: calcium acetate 667mg (PhosLO) capsule CORPAK SCH ×3 (10:05→18:00)
[2021-05-29] MEDS: meropenem inj 500 MG in normal saline 100ml IV soln 100 ML IV SCH (10:05)
--- NOTE | 2021-05-29 10:07 | NUR ---
Reassessment: Per MD note from this morning pt with worsening gas exchange and was placed on BiPAP 05/28 however pt had a respiratory arrest with hypercapnia, then had a cardiac arrest x 2 this morning and pt ultimately intubated. Per EMR pt vomited approximately 500 mL of tube feed during CPR and pt NPO at this time. Prior to this event pt appeared to be tolerating TF with GRV range 10-50 mL which is WNL. Noted pt has been started on Propofol, currently running at 2.136 mL/hr which provides 56 kcal/day if to remain at current rate. No adjustments to TF rate warranted at this time. Recommend resuming TF as medically indicated with physician approval. Noted pt received dialysis 05/28, documented with 3 L fluid removed. LBM 05/26 with 600 mL stool output per I&O. Pt receiving routine bowel care. Will continue to follow closely. Recommendations: 1. Once MD okays, resume continuous TF using Pivot 1.5 with 54 mL/hr goal to provide 1296 mL volume/day, 1944 kcal, 972 mL water, and 122 g protein. 2. Monitor Propofol rate and need to adjust TF rate; IF Propofol rate remains at 2.136 mL/hr (56 kcal/day) consider increasing goal rate to 60 mL/hr to provide 1440 mL total volume/day, 2160 kcal, 135 g protein, and 1080 mL water 3. Additional water flush per property loss insurance claim adjuster given CKD V, on HD 4. Prealbumin q Monday/ 5. Daily scaled weights 6. Routine Phos binder per MD 7. Routine bowel care 8. F/u BSS with ST prior to PO diet advancement following extubation Addendum: 05/29/21 at [address] Amended: Links added.
[2021-05-29 12:55] LABS: ABG BASE EXCESS 0.4 mmol/L (-2.0-2.0); ABG HCO3 27.5 mmol/L (22.0-26.0); ABG OXYGEN SATURATION 83.8 % (94-97); ABG PCO2 (T) 59.7 mmHg (35.0-48.0); ABG PO2 (T) 46.7 mmHg (75.0-100.0); ALLEN'S TEST POSITIVE; FCOHb 0.3 % (0.0-3.9); FMetHb 0.3 % (0.0-1.5); FO2Hb 83.3 % (94-97); PATIENT TEMPERATURE 36.7; PEEP 5 cm H2O; RESPIRATORY RATE 30 b/min; TIDAL VOLUME 350 mL; TOTAL HEMOGLOBIN 7.8 G/dl (14.0-18.0)
[2021-05-29 13:37] LABS: ABG HCO3 24.6 mmol/L (22.0-26.0); ABG OXYGEN SATURATION 98.7 % (94-97); ABG PCO2 (T) 49.6 mmHg (35.0-48.0); ABG PO2 (T) 137.6 mmHg (75.0-100.0); ALLEN'S TEST POSITIVE; FCOHb 0.1 % (0.0-3.9); FMetHb 0.2 % (0.0-1.5); FO2Hb 98.4 % (94-97); PATIENT TEMPERATURE 35.8; PEEP 5 cm H2O; RESPIRATORY RATE 30 b/min; TIDAL VOLUME 400 mL; TOTAL HEMOGLOBIN 7.9 G/dl (14.0-18.0)
[2021-05-29] MEDS: CISatracurium besylate inj. 100 MG in normal saline 100ml IV soln 90 ML IV PRN (13:48)
[2021-05-29] MEDS ORDERED: sodium chloride inj. 154 MEQ in Dextrose 10%-water IV solution 961.5 ML IV SCH (15:45)
[2021-05-29] MEDS: dextrose 50%-water 50ml dispensing syringe IV PRN (15:47)
[2021-05-29] MEDS ORDERED: Dextrose 10%-water IV solution 1,000 ML IV SCH (15:55)
[2021-05-29] MEDS: insulin glargine (Lantus) pen - multi-dose SQ SCH (21:00)
[2021-05-29] MEDS: gabapentin 300mg capsule CORPAK SCH (21:06)
[2021-05-29] MEDS: traZODone 50mg tablet CORPAK SCH (21:07)
[2021-05-30] VITALS (39 sets, daily range): BP systolic 79–213; BP diastolic 34–78
[2021-05-30] MEDS: CISatracurium besylate inj. 100 MG in normal saline 100ml IV soln 90 ML IV PRN (01:40)
[2021-05-30 02:46] LABS: BASOPHILS % (AUTO) 0.3 % (0-1); EOSINOPHILS % (AUTO) 0.1 % (0-6); LYMPHOCYTES # (AUTO) 0.5 X10'3 (1.1-4.8); LYMPHOCYTES % (AUTO) 4.1 % (21-51); MEAN CORPUSCULAR HEMOGLOBIN 31.6 PG (27.0-31.0); MEAN CORPUSCULAR HGB CONC 32.6 g/dL (33.0-36.5); MEAN PLATELET VOLUME 8.9 FL (7.4-10.4); MONOCYTES # (AUTO) 0.5 X10'3 (0-0.9); MONOCYTES % (AUTO) 3.9 % (2-12); NEUTROPHILS # (AUTO) 10.7 X10'3 (1.8-7.7); NEUTROPHILS % (AUTO) 91.6 % (42-75); PLATELET COUNT 120 X10'3 (140-440); RED BLOOD COUNT 1.99 X10'6 (4.70-6.10); RED CELL DISTRIBUTION WIDTH 20.6 % (11.5-14.5); WHITE BLOOD COUNT 11.7 X10'3 (4.5-11.0)
[2021-05-30 02:51] LABS: HEMATOCRIT 19.3 % (42.0-52.0); HEMOGLOBIN 6.3 g/dl (14.0-17.9)
[2021-05-30 03:31] LABS: ABG BASE EXCESS -4.4 mmol/L (-2.0-2.0); ABG HCO3 21.1 mmol/L (22.0-26.0); ABG OXYGEN SATURATION 91.2 % (94-97); ABG PCO2 (T) 39.1 mmHg (35.0-48.0); ABG PO2 (T) 57.6 mmHg (75.0-100.0); ALLEN'S TEST POSITIVE; FCOHb 0.2 % (0.0-3.9); FMetHb 0.2 % (0.0-1.5); FO2Hb 90.8 % (94-97); PATIENT TEMPERATURE 36.1; PEEP 5 cm H2O; RESPIRATORY RATE 30 b/min; TIDAL VOLUME 400 mL; TOTAL HEMOGLOBIN 10.6 G/dl (14.0-18.0)
[2021-05-30 03:35] LABS: ALANINE AMINOTRANSFERASE 44 U/L (12-78); ALBUMIN 1.6 G/DL (3.4-5.0); ALBUMIN/GLOBULIN RATIO 0.6 (1.1-1.5); ALKALINE PHOSPHATASE 144 IU/L (46-116); ANION GAP 13 (8-16); ASPARTATE AMINO TRANSFERASE 21 U/L (10-37); BILIRUBIN,TOTAL 0.4 MG/DL (0.1-1.0); BLOOD UREA NITROGEN 60 MG/DL (7-18); BUN/CREATININE RATIO 23.1 (5.4-32.0); CALCIUM 7.7 MG/DL (8.5-10.1); CHLORIDE 104 MMOL/L (99-107); GLUCOSE 247 MG/DL (70-104); POTASSIUM 5.1 MMOL/L (3.5-5.1); SODIUM 139 MMOL/L (135-145); TOTAL CARBON DIOXIDE 22.4 MMOL/L (24-32); TOTAL PROTEIN 4.3 G/DL (6.4-8.2); TRIGLYCERIDES 86 MG/DL (20-135); VANCOMYCIN,RANDOM 25.3 UG/ML; eGFR 24 ML/MIN
[2021-05-30] MEDS ORDERED: NORepinephrine 8mg/ 250ml NS 250 ML IV ONE (04:20)
[2021-05-30] MEDS ORDERED: NORepinephrine 8mg/ 250ml NS 250 ML IV PRN (04:35)
[2021-05-30] MEDS: propofol 1000mg/100ml bottle 100 ML IV SCH ×2 (06:54→17:27)
--- NOTE | 2021-05-30 07:19 | NUR ---
Patient in room ICU 2045. I have received report from Freda ORLANDO and had the opportunity to ask questions and assume patient care. Pt semi fowlers in bed, safety measures in place. intubated on mechanical vent: rate: 30; TV: 400; peep: 5; fio2 55%. Pt with right samantha and RUE PICC. Fentanyl @ 100, nibmex @ 2, Propofol @20. Levo at .2. unit of blood running, next VS check at 0641. no s/sx adverse reaction to blood. chest rising and falling symmetrically. LS bilaterally. OG to intermittent suction. pt unarousable. heels floated, body supported with pillows.
[2021-05-30] MEDS: dexmedetomidine/D5W 100mL 100 ML IV SCH ×2 (07:41→21:12)
[2021-05-30] MEDS: metoprolol tartrate 25mg tablet PO SCH ×3 (08:00→20:13)
[2021-05-30] MEDS: mineral oil/petrolatum ophthal oint EACHEYE SCH ×3 (08:00→20:12)
[2021-05-30] MEDS: hydrALAZINE 20mg/ml inj. IV SCH ×3 (08:00→20:13)
[2021-05-30] MEDS: finasteride 5mg tablet PO SCH (08:00)
[2021-05-30] MEDS: calcium acetate 667mg (PhosLO) capsule CORPAK SCH ×3 (08:00→18:00)
[2021-05-30] MEDS: docusate sodium 100mg/10ml UD cup CORPAK SCH ×2 (08:58→20:12)
[2021-05-30] MEDS: aspirin 81mg tab.chew CORPAK SCH (08:58)
[2021-05-30] MEDS: QUEtiapine 25mg tablet PO SCH ×2 (08:58→20:14)
[2021-05-30] MEDS: sertraline 25mg tablet CORPAK SCH (08:58)
[2021-05-30] MEDS: MULTIVIT-MIN/FERROUS GLUCONATE 9 MG/15 ML LIQUID CORPAK SCH (08:58)
[2021-05-30] MEDS: calcium carbonate/vitamin D3 tablet CORPAK SCH (08:58)
[2021-05-30] MEDS: methylPREDNISolone sod succ/PF 40mg inj. IV SCH (08:59)
[2021-05-30] MEDS: meropenem inj 500 MG in normal saline 100ml IV soln 100 ML IV SCH (09:00)
--- NOTE | 2021-05-30 09:05 | NUR ---
medications non-admin'd: hydralazine/metoprolol not needed at this time due to pt continues on Levophed. PhosLo not needed d/t pt NPO. proscar can not be given due to it can not be crushed.
[2021-05-30] MEDS: insulin regular, human U-100 3ml vial - multi-dose SQ SCH ×3 (10:05→21:07)
[2021-05-30 10:42] LABS: MAGNESIUM 2.2 MG/DL (1.5-2.4); PHOSPHORUS 4.1 MG/DL (2.3-4.5)
[2021-05-30 12:49] LABS: HEMATOCRIT 23.5 % (42.0-52.0); MEAN CORPUSCULAR HEMOGLOBIN 31.5 PG (27.0-31.0); MEAN CORPUSCULAR HGB CONC 33.9 g/dL (33.0-36.5); MEAN PLATELET VOLUME 8.7 FL (7.4-10.4); PLATELET COUNT 126 X10'3 (140-440); RED BLOOD COUNT 2.53 X10'6 (4.70-6.10); RED CELL DISTRIBUTION WIDTH 20.6 % (11.5-14.5); WHITE BLOOD COUNT 11.6 X10'3 (4.5-11.0)
--- NOTE | 2021-05-30 13:55 | NUR ---
Tube Feedings: new order to resume Called and discussed tube feed currently on hole/ pt nutritional status with Harpal Beveler. Harpal recommended that pivot 1.5 be restarted at 25ml, and if tolerating well after 6 hrs, increase to goal: 54ml/hr. Discussed this recommendation with Dr. Jenkins. New order to restart tube feed per above recommendation.
--- NOTE | 2021-05-30 14:44 | NUR ---
metoprolol and hydralazine scheduled doses held d/t pt continues on Levophed to support BP
[2021-05-30 14:52] LABS: ABG BASE EXCESS -5.1 mmol/L (-2.0-2.0); ABG HCO3 21.9 mmol/L (22.0-26.0); ABG OXYGEN SATURATION 92.4 % (94-97); ABG PCO2 (T) 49.5 mmHg (35.0-48.0); ABG PO2 (T) 67.6 mmHg (75.0-100.0); ALLEN'S TEST POSITIVE; FCOHb 0.1 % (0.0-3.9); FMetHb 0.2 % (0.0-1.5); FO2Hb 92.1 % (94-97); PATIENT TEMPERATURE 36.7; PEEP 5 cm H2O; RESPIRATORY RATE 22 b/min; TIDAL VOLUME 400 mL
[2021-05-30] MEDS ORDERED: fentaNYL/NS/PF 2,500 mcg/250mL 250 ML IV PRN (15:00)
--- NOTE | 2021-05-30 18:14 | NUR ---
Problems reprioritized. Patient report given, questions answered & plan of care reviewed with Freda ORLANDO. Pt semi fowlers in bed, propped with pillows. chest rising and falling evenly. ET patent. VS stable. PICC patent, fentanyl @ 100, propofol @ 25, BP stable off of the levo. safety measures in place.
[2021-05-30] MEDS: traZODone 50mg tablet CORPAK SCH (20:14)
[2021-05-30] MEDS: gabapentin 300mg capsule CORPAK SCH (20:14)
[2021-05-30] MEDS: insulin glargine (Lantus) pen - multi-dose SQ SCH (20:23)
[2021-05-31] VITALS (34 sets, daily range): BP systolic 88–144; BP diastolic 43–75
[2021-05-31] MEDS: hydrALAZINE 20mg/ml inj. IV SCH (00:27)
[2021-05-31] MEDS: metoprolol tartrate 25mg tablet PO SCH (00:27)
[2021-05-31] MEDS: VANCOMYCIN LEVEL IV SCH (00:28)
[2021-05-31] MEDS: propofol 1000mg/100ml bottle 100 ML IV SCH ×2 (01:21→11:26)
[2021-05-31] MEDS: mineral oil/petrolatum ophthal oint EACHEYE SCH ×4 (01:22→19:53)
[2021-05-31] MEDS: insulin regular, human U-100 3ml vial - multi-dose SQ SCH ×4 (02:35→20:11)
[2021-05-31 03:12] LABS: BASOPHILS % (AUTO) 0.3 % (0-1); EOSINOPHILS % (AUTO) 0 % (0-6); HEMOGLOBIN 8.2 g/dl (14.0-17.9); LYMPHOCYTES # (AUTO) 0.5 X10'3 (1.1-4.8); LYMPHOCYTES % (AUTO) 3.9 % (21-51); MEAN CORPUSCULAR HEMOGLOBIN 30.8 PG (27.0-31.0); MEAN CORPUSCULAR HGB CONC 32.9 g/dL (33.0-36.5); MEAN CORPUSCULAR VOLUME 93.7 FL (78-98); MEAN PLATELET VOLUME 8.9 FL (7.4-10.4); MONOCYTES # (AUTO) 0.4 X10'3 (0-0.9); MONOCYTES % (AUTO) 3.4 % (2-12); NEUTROPHILS # (AUTO) 11.8 X10'3 (1.8-7.7); NEUTROPHILS % (AUTO) 92.4 % (42-75); PLATELET COUNT 145 X10'3 (140-440); RED BLOOD COUNT 2.67 X10'6 (4.70-6.10); RED CELL DISTRIBUTION WIDTH 21.6 % (11.5-14.5); WHITE BLOOD COUNT 12.8 X10'3 (4.5-11.0)
[2021-05-31 03:39] LABS: ALANINE AMINOTRANSFERASE 33 U/L (12-78); ALBUMIN 1.7 G/DL (3.4-5.0); ALBUMIN/GLOBULIN RATIO 0.5 (1.1-1.5); ALKALINE PHOSPHATASE 171 IU/L (46-116); ANION GAP 14 (8-16); ASPARTATE AMINO TRANSFERASE 13 U/L (10-37); BILIRUBIN,TOTAL 0.3 MG/DL (0.1-1.0); BLOOD UREA NITROGEN 72 MG/DL (7-18); BUN/CREATININE RATIO 20.2 (5.4-32.0); CALCIUM 8.2 MG/DL (8.5-10.1); CHLORIDE 101 MMOL/L (99-107); CREATININE 3.56 MG/DL (0.60-1.10); GLUCOSE 279 MG/DL (70-104); POTASSIUM 5.5 MMOL/L (3.5-5.1); PREALBUMIN 17.4 MG/DL (19-36); SODIUM 137 MMOL/L (135-145); TOTAL CARBON DIOXIDE 22.4 MMOL/L (24-32); TOTAL PROTEIN 4.8 G/DL (6.4-8.2); VANCOMYCIN,RANDOM 22.5 UG/ML; eGFR 17 ML/MIN
[2021-05-31 03:47] LABS: ABG BASE EXCESS -7.1 mmol/L (-2.0-2.0); ABG OXYGEN SATURATION 94.7 % (94-97); ABG PCO2 (T) 47.5 mmHg (35.0-48.0); ABG PO2 (T) 80.9 mmHg (75.0-100.0); ALLEN'S TEST Modified; FCOHb 0.2 % (0.0-3.9); FMetHb 0.2 % (0.0-1.5); FO2Hb 94.3 % (94-97); PEEP 5 cm H2O; RESPIRATORY RATE 22 b/min; TIDAL VOLUME 400 mL; TOTAL HEMOGLOBIN 9.3 G/dl (14.0-18.0)
--- NOTE | 2021-05-31 06:47 | NUR ---
[facility] I have received report from Freda ORLANDO and had the opportunity to ask questions and assume patient care. Pt semi fowlers in bed, safety measures in place. intubated on mechanical vent: rate: 22; VT: 400; peep: 5; fio2 50%. Pt with right samantha and RUE PICC patent: Fentanyl @ 100, Propofol @25. Levo at .05 with Blood pressures soft. chest rising and falling symmetrically. LS bilaterally. pedal pulses + BLE. OG patent running TF at goal (54ml/hr). pt withdraws to pain. heels floated, body supported with pillows.
--- NOTE | 2021-05-31 07:31 | NUR ---
Dr. Jenkins made quick round. new order to d/c metoprolol/hydralazine/proscar routine meds for now. revisit at a later time if needed.
[2021-05-31] MEDS ORDERED: heparin 1,000 units/ml 10ml inj HE ONE ×2 (08:00)
[2021-05-31] MEDS ORDERED: EPOETIN ALFA-EPBX 20,000 UNIT/ML 1 ML MDV IV ONE (08:00)
[2021-05-31] MEDS ORDERED: heparin 1,000unit/ml 10ml vial 10 ML IV ONE (08:00)
[2021-05-31] MEDS ORDERED: normal saline 1000ml 250 ML IV PRN (08:00)
[2021-05-31] MEDS: sertraline 25mg tablet CORPAK SCH (08:09)
[2021-05-31] MEDS: allopurinol 100mg tablet CORPAK SCH (08:09)
[2021-05-31 08:10] LABS: MAGNESIUM 2.6 MG/DL (1.5-2.4); PHOSPHORUS 5.7 MG/DL (2.3-4.5)
[2021-05-31] MEDS: QUEtiapine 25mg tablet PO SCH (08:10)
[2021-05-31] MEDS: methylPREDNISolone sod succ/PF 40mg inj. IV SCH (08:10)
[2021-05-31] MEDS: calcium carbonate/vitamin D3 tablet CORPAK SCH (08:10)
[2021-05-31] MEDS: famotidine 20mg tablet CORPAK SCH (08:10)
[2021-05-31] MEDS: aspirin 81mg tab.chew CORPAK SCH (08:10)
[2021-05-31] MEDS: heparin, porcine 5000 units/ml vial SQ SCH ×3 (08:11→23:44)
[2021-05-31] MEDS: docusate sodium 100mg/10ml UD cup CORPAK SCH ×2 (08:11→19:52)
[2021-05-31] MEDS: meropenem inj 500 MG in normal saline 100ml IV soln 100 ML IV SCH ×2 (08:11→19:52)
[2021-05-31] MEDS: MULTIVIT-MIN/FERROUS GLUCONATE 9 MG/15 ML LIQUID CORPAK SCH (08:11)
[2021-05-31] MEDS: calcium acetate 667mg (PhosLO) capsule CORPAK SCH ×3 (08:20→17:17)
--- NOTE | 2021-05-31 09:45 | NUR ---
Pt with desaturation episode. pt down to 82%, oral care/suctioning provided, pt repositioned, without significant improvement. 2 mins of 100% FIO2, then upon returning to 45% FIO2, spo2 promptly dropped again. no change to BP/HR/or rhythm throughout. FIO2 raised to 50%. pt maintaining low 90's spo2.
--- NOTE | 2021-05-31 11:00 | NUR ---
Rounds with Dr. Jenkins & team: discussed pt current health state, labs, episodes of desaturation, tube feeds and residuals and cxr's etc. new orders for lactulose routine until first BM, d/c zoloft, seroquel, and trazedone to reduce R/F serotonin syndrome (with fentanyl going continuously). discussed consolidation to right mid lug and tenacious secretions. Doc ordered hypertonic saline for RT instillation. Dr. Jenkins stated to not worry or stop tube feedings unless residual > 500ml. and instructed nurses to take pt on sedation vacation.
--- NOTE | 2021-05-31 11:33 | NUR ---
Sedation vacation started. propofol now at 12.5 (from 25) and fentanyl @ 50 (from 100)
[2021-05-31] MEDS: albuterol 2.5 MG/3 ML nebule NEB SCH ×3 (11:45→19:56)
[2021-05-31] MEDS: sodium chloride 3% for inhalation 4ml nebule IH SCH ×3 (11:48→19:56)
[2021-05-31] MEDS: lactulose 20gm/30ml cup PO SCH ×2 (14:17→19:52)
[2021-05-31] MEDS: fluconazole-Diflucan 200mg/NS 100 ML IV SCH (14:17)
--- NOTE | 2021-05-31 18:15 | NUR ---
Problems reprioritized. Patient report given, questions answered & plan of care reviewed with Freda ORLANDO. Pt semi fowlers in bed, heels floated, supported body with pillows. mechanically vented a/c prvc 45%. spo2 98%, propofol @ 12.5, fentanyl @ 50. needs anticipated and met. safety measures in place.
[2021-05-31] MEDS: gabapentin 300mg capsule CORPAK SCH (19:52)
[2021-05-31] MEDS: insulin glargine (Lantus) pen - multi-dose SQ SCH (19:56)
[2021-06-01] VITALS (34 sets, daily range): BP systolic 119–204; BP diastolic 55–101
[2021-06-01] MEDS: lactulose 20gm/30ml cup PO SCH ×4 (02:00→20:00)
[2021-06-01] MEDS: VANCOMYCIN LEVEL IV SCH (02:02)
[2021-06-01] MEDS: mineral oil/petrolatum ophthal oint EACHEYE SCH ×4 (02:02→20:00)
[2021-06-01] MEDS: insulin regular, human U-100 3ml vial - multi-dose SQ SCH ×2 (02:37→10:47)
[2021-06-01 03:00] LABS: BASOPHILS % (AUTO) 0.6 % (0-1); EOSINOPHILS # (AUTO) 0.1 X10'3 (0-0.9); EOSINOPHILS % (AUTO) 1.4 % (0-6); HEMATOCRIT 22.9 % (42.0-52.0); HEMOGLOBIN 7.5 g/dl (14.0-17.9); LYMPHOCYTES # (AUTO) 0.5 X10'3 (1.1-4.8); LYMPHOCYTES % (AUTO) 5.8 % (21-51); MEAN CORPUSCULAR VOLUME 93.9 FL (78-98); MONOCYTES # (AUTO) 0.4 X10'3 (0-0.9); MONOCYTES % (AUTO) 5.4 % (2-12); NEUTROPHILS # (AUTO) 6.9 X10'3 (1.8-7.7); NEUTROPHILS % (AUTO) 86.8 % (42-75); PLATELET COUNT 111 X10'3 (140-440); RED BLOOD COUNT 2.44 X10'6 (4.70-6.10); RED CELL DISTRIBUTION WIDTH 20.6 % (11.5-14.5)
[2021-06-01 03:27] LABS: ALANINE AMINOTRANSFERASE 31 U/L (12-78); ALBUMIN 1.6 G/DL (3.4-5.0); ALBUMIN/GLOBULIN RATIO 0.5 (1.1-1.5); ALKALINE PHOSPHATASE 202 IU/L (46-116); ANION GAP 9 (8-16); ASPARTATE AMINO TRANSFERASE 22 U/L (10-37); BILIRUBIN,TOTAL 0.2 MG/DL (0.1-1.0); BLOOD UREA NITROGEN 45 MG/DL (7-18); BUN/CREATININE RATIO 19.1 (5.4-32.0); CHLORIDE 104 MMOL/L (99-107); CREATININE 2.36 MG/DL (0.60-1.10); GLUCOSE 229 MG/DL (70-104); MAGNESIUM 2.2 MG/DL (1.5-2.4); PHOSPHORUS 2.3 MG/DL (2.3-4.5); POTASSIUM 3.9 MMOL/L (3.5-5.1); SODIUM 141 MMOL/L (135-145); TOTAL CARBON DIOXIDE 27.8 MMOL/L (24-32); TOTAL PROTEIN 4.7 G/DL (6.4-8.2); VANCOMYCIN,RANDOM 18.2 UG/ML; eGFR 27 ML/MIN
[2021-06-01] MEDS: FENTANYL-0.9 % NACL/PF 100 ML IV PRN (04:01)
[2021-06-01 04:08] LABS: ABG BASE EXCESS 1.2 mmol/L (-2.0-2.0); ABG HCO3 26.9 mmol/L (22.0-26.0); ABG OXYGEN SATURATION 95.5 % (94-97); ABG PCO2 (T) 50.3 mmHg (35.0-48.0); ABG PO2 (T) 82.2 mmHg (75.0-100.0); ALLEN'S TEST Modified; FCOHb 0.1 % (0.0-3.9); FMetHb 0.3 % (0.0-1.5); FO2Hb 95.1 % (94-97); PATIENT TEMPERATURE 37.7; PEEP 5 cm H2O; RESPIRATORY RATE 22 b/min; TIDAL VOLUME 400 mL; TOTAL HEMOGLOBIN 8.8 G/dl (14.0-18.0)
--- NOTE | 2021-06-01 06:47 | NUR ---
Patient in room ICU 2045. I have received report from Freda ORLANDO and had the opportunity to ask questions and assume patient care. Pt semi fowlers in bed, supported with pillows to left side. pt eyes blinking intermittently. small movement of LLE when commanded to move feet, raises left hand in air. soft restraints to BUE, CRM +. pt tachycardic@102, hypertensive @ 182/79 (out of baseline for past two days). sp02 99% on AC/PRVC vent setting, 45%FIO2, VT set at 400, however pt breathing between 180-600 volumes. mildly desynchronous/overbreathing. RR 29 though set rate at 22. LS + bilaterally. pt continues on fentanyl @ 50, propofol @ 12.5. safety measures in place. Addendum: 06/01/21 at 0717 by Lillian Lee RN labetalol prn given for hypertension
[2021-06-01] MEDS: labetalol 20mg/4ml (5mg/ml) syringe IV PRN ×2 (07:12→11:35)
[2021-06-01] MEDS: albuterol 2.5 MG/3 ML nebule NEB SCH (07:16)
[2021-06-01] MEDS: sodium chloride 3% for inhalation 4ml nebule IH SCH (07:18)
[2021-06-01] MEDS: docusate sodium 100mg/10ml UD cup CORPAK SCH ×3 (08:00→21:43)
[2021-06-01] MEDS: calcium carbonate/vitamin D3 tablet CORPAK SCH (08:35)
[2021-06-01] MEDS: aspirin 81mg tab.chew CORPAK SCH (08:35)
[2021-06-01] MEDS: MULTIVIT-MIN/FERROUS GLUCONATE 9 MG/15 ML LIQUID CORPAK SCH (08:35)
[2021-06-01] MEDS: methylPREDNISolone sod succ/PF 40mg inj. IV SCH (08:36)
[2021-06-01] MEDS: heparin, porcine 5000 units/ml vial SQ SCH ×2 (08:36→16:00)
[2021-06-01] MEDS: fluconazole-Diflucan 200mg/NS 100 ML IV SCH (08:37)
--- NOTE | 2021-06-01 10:24 | NUR ---
Dr. Jenkins made quick rounds new orders to stop propofol and stop fentanyl. doc changed pt to CPAP changing to 10/5, then changed to pressure support 5, and peep of 5. volumes consistently over 500. new orders for hydralazine 10mg stat IV, then @6hrs prn, restart metoprolol 50mg BID. Doc stated the patient will most likely be extubated today.
[2021-06-01] MEDS ORDERED: hydrALAZINE 20mg/ml inj. IV PRN (10:30)
--- NOTE | 2021-06-01 10:32 | NUR ---
quick call made to family to update called son roque and gave quick update in increased alertness/following directions, changed to cpap mode, hypertensive, and managing. roque grateful for information and update and stated he would update his sister. son verbalized agreement with POC
[2021-06-01] MEDS: hydrALAZINE 20mg/ml inj. IV PRN (10:40)
[2021-06-01] MEDS ORDERED: metoprolol tartrate 50mg tablet PO SCH (11:00)
--- NOTE | 2021-06-01 11:22 | NUR ---
Notified Dr. Jenkins of continued hypertension. new order: lebatolol 20mg x1 now. then change frequency of current prn order to 10mg q1hr prn sbp>160, DBP>100 new order to extubate. RT paged.
[2021-06-01] MEDS ORDERED: labetalol 20mg/4ml (5mg/ml) syringe IV STA ×2 (11:25→14:32)
--- NOTE | 2021-06-01 12:12 | NUR ---
F/u 3: Pt remains intubated tolerating TF at goal GRV WNL. Pt w/ multiple BM's last night per RN following lactulose yesterday w/ lactulose and colace held this AM per EMR. Pt s/p HD yesterday w/ 2L removed per EMR. Propofol currently off during RD rounds this AM. Will keep TF at current 54ml/hr; updated recs below in case sepsis to resolve per physician on HD. Will continue to monitor for TF tolerance and further nutrition support needs on vent. Recommendations: 1. Continuous TF using Pivot 1.5 with 54 mL/hr goal to provide 1296 mL volume/day, 1944 kcal, 972 mL water, and 122 g protein. 2. Monitor Propofol rate and need to adjust TF rate 3. IF sepsis resolves; consider TF using Nepro 1.8 at 52ml/hr goal 4. Additional water flush per care connector given CKD , on HD 5. Prealbumin q Monday/; Daily scaled weights 6. Routine Phos binder per MD 7. Routine bowel care 8. F/u BSS with ST prior to PO diet advancement upon extubation Addendum: 06/01/21 at [address] Amended: Links added.
--- NOTE | 2021-06-01 12:20 | NUR ---
Pt extubated @ [address] Jenkins orders by Tiara ORO with jolene RN and Gogo ORLANDO at bedside. copious secretions with tube removal suctioned. pt placed on 4LPM. spo2 low 90's. pt strongly encouraged to deep breathe and cough. cough weak, impaired ability to mobilize secretions. new order to speech eval. pt continues moderately hypertensive. will monitor closely. Addendum: 06/01/21 at 1314 by Lillian Lee RN Pt continues extubated, respiration in mid 20's. LS wet, congested. poor cough. continue to encourage. will monitor closely.
--- NOTE | 2021-06-01 14:35 | NUR ---
Pt continues hypertensive, with pink frothy sputum. Dr. Jenkins notified. new orders for cardene gtt, start jolene, but give labetalol 20mg stat IV now. Dr. Jenkins called Dr. Buitrago, new order to stop phoslo. HD today urged by Dr. Jenkins.
[2021-06-01] MEDS ORDERED: heparin 1,000unit/ml 10ml vial 10 ML IV ONE (14:40)
[2021-06-01] MEDS ORDERED: albumin (human) 25% 100ml IV 100 ML IV PRN (14:40)
[2021-06-01] MEDS ORDERED: EPOETIN ALFA-EPBX 20,000 UNIT/ML 1 ML MDV IV ONE (14:40)
[2021-06-01] MEDS ORDERED: heparin 1,000 units/ml 10ml inj IV ONE (14:40)
[2021-06-01] MEDS ORDERED: heparin 1,000 units/ml 10ml inj HE ONE ×2 (14:45)
[2021-06-01] MEDS: niCARdipine I.V. 50 MG in normal saline 250ml IV soln 230 ML IV SCH ×2 (14:59→21:30)
[2021-06-01] MEDS: pantoprazole 40MG/NS 100ML BAG 100 ML IV SCH (15:02)
[2021-06-01] MEDS: dextrose 50%-water 50ml dispensing syringe IV PRN (15:06)
--- NOTE | 2021-06-01 17:31 | NUR ---
Shift synopsis Patient primary coaching trainee Lillian Naylor RN for today's shift. Patient required several anti-hypertensive IV push medications and oral today with little to no productive effects. Dr. Jenkins in communication throughout shift for this. During morning rounds, we inquire about giving the PhosLo given his ph was already borderline low on today's labs. Gregory states he will contact unattended ground sensor specialist. 08:38-titrate down on Propofol in anticipation of weaning trial/extubation. 10:05-Formal rounds. Fentanyl and Propofol turned off per Dr. Jenkins who is bedside. Dr. pascual puts vent to CPAP at 10/5, then 5/5 given patient is pulling 700 for volumes. Patient does have light pink suction from inline and oral. Dr aware and suctions himself as well. 12:00 Dr. Jenkins orders extubation and RT communicates parameters. 12:15 Patient is extubated to 4L NC satting mid-90's but sounding very wet. Patient has weak cough. Historically, patient does require more aggressive NT/SINGLE ENDING MACHINE OPERATOR suctioning even when not intubated due to poor clearance of secretions. Patient continues to be hypertensive. 1425: Copious, pink froth is suctioned from deep pharyngeal suction. is notified about this and continuing hypertension. 1430: Dr. Jenkins has spoken with Dr. Carrero and received orders to dialyze and stop the PhosLo per our question at morning rounds. Nicardipine gtts. is ordered. 1615: DARION Cantu starts dialysis. Patient continues to require frequent DP suctioning. He remains b/w 4-6 L NC satting mid to high 90's. 1715:biscuit packer communicated that at this point, we have already taken off about 2L thus far with another 1.5 hr to go. Family has been called and updated by Lillian Lee RN. Patient is still requiring titration of Nicardipine.
[2021-06-01] MEDS: meropenem inj 500 MG in normal saline 100ml IV soln 100 ML IV SCH (20:00)
[2021-06-01] MEDS: gabapentin 300mg capsule CORPAK SCH (21:00)
[2021-06-01] MEDS: insulin glargine (Lantus) pen - multi-dose SQ SCH (21:58)
--- NOTE | 2021-06-01 22:00 | NUR ---
Partial dose of lantus given due to npo status and previous low glucose reading.
[2021-06-02] VITALS (23 sets, daily range): BP systolic 119–161; BP diastolic 54–76
[2021-06-02] MEDS: heparin, porcine 5000 units/ml vial SQ SCH ×3 (00:39→17:33)
[2021-06-02] MEDS: niCARDipine-NS 40mg/200ml IVPB 200 ML IV SCH ×7 (00:50→22:50)
[2021-06-02] MEDS: mineral oil/petrolatum ophthal oint EACHEYE SCH ×4 (01:51→19:25)
[2021-06-02] MEDS: lactulose 20gm/30ml cup PO SCH (01:51)
[2021-06-02] MEDS: propofol 1000mg/100ml bottle 100 ML IV SCH (01:52)
[2021-06-02 03:22] LABS: BASOPHILS % (AUTO) 0.2 % (0-1); EOSINOPHILS % (AUTO) 0.1 % (0-6); HEMATOCRIT 27.5 % (42.0-52.0); LYMPHOCYTES # (AUTO) 0.4 X10'3 (1.1-4.8); LYMPHOCYTES % (AUTO) 3.4 % (21-51); MEAN CORPUSCULAR HEMOGLOBIN 30.7 PG (27.0-31.0); MEAN CORPUSCULAR HGB CONC 32.9 g/dL (33.0-36.5); MEAN CORPUSCULAR VOLUME 93.5 FL (78-98); MEAN PLATELET VOLUME 8.7 FL (7.4-10.4); MONOCYTES # (AUTO) 0.7 X10'3 (0-0.9); MONOCYTES % (AUTO) 6.1 % (2-12); NEUTROPHILS # (AUTO) 10.2 X10'3 (1.8-7.7); NEUTROPHILS % (AUTO) 90.2 % (42-75); PLATELET COUNT 147 X10'3 (140-440); RED BLOOD COUNT 2.94 X10'6 (4.70-6.10); RED CELL DISTRIBUTION WIDTH 20.7 % (11.5-14.5); WHITE BLOOD COUNT 11.3 X10'3 (4.5-11.0)
[2021-06-02 03:37] LABS: MAGNESIUM 2.6 MG/DL (1.5-2.4); PHOSPHORUS 3.7 MG/DL (2.3-4.5)
[2021-06-02 04:32] LABS: OCCULT BLOOD STOOL NEGATIVE (Neg)
[2021-06-02 05:04] LABS: PLATELET ESTIMATE NORMAL
[2021-06-02 05:05] LABS: ANISOCYTOSIS 3+; ELLIPTOCYTES FEW; POLYCHROMASIA FEW
[2021-06-02] MEDS: pantoprazole 40MG/NS 100ML BAG 100 ML IV SCH (08:54)
[2021-06-02] MEDS: fluconazole-Diflucan 200mg/NS 100 ML IV SCH (08:54)
[2021-06-02] MEDS: insulin regular, human U-100 3ml vial - multi-dose SQ SCH (08:58)
[2021-06-02] MEDS: calcium carbonate/vitamin D3 tablet CORPAK SCH (11:24)
[2021-06-02] MEDS: docusate sodium 100mg/10ml UD cup CORPAK SCH ×2 (11:24→19:35)
[2021-06-02] MEDS: aspirin 81mg tab.chew CORPAK SCH (11:24)
[2021-06-02] MEDS: MULTIVIT-MIN/FERROUS GLUCONATE 9 MG/15 ML LIQUID CORPAK SCH (11:24)
[2021-06-02] MEDS: allopurinol 100mg tablet CORPAK SCH (11:24)
[2021-06-02 12:09] LABS: BASOPHILS % (AUTO) 0.3 % (0-1); EOSINOPHILS % (AUTO) 0.4 % (0-6); HEMATOCRIT 27.1 % (42.0-52.0); HEMOGLOBIN 8.9 g/dl (14.0-17.9); LYMPHOCYTES # (AUTO) 0.4 X10'3 (1.1-4.8); LYMPHOCYTES % (AUTO) 4.7 % (21-51); MEAN CORPUSCULAR HEMOGLOBIN 30.7 PG (27.0-31.0); MEAN CORPUSCULAR HGB CONC 32.9 g/dL (33.0-36.5); MEAN CORPUSCULAR VOLUME 93.3 FL (78-98); MEAN PLATELET VOLUME 8.6 FL (7.4-10.4); MONOCYTES # (AUTO) 0.5 X10'3 (0-0.9); MONOCYTES % (AUTO) 5.1 % (2-12); NEUTROPHILS # (AUTO) 8.4 X10'3 (1.8-7.7); NEUTROPHILS % (AUTO) 89.5 % (42-75); PLATELET COUNT 153 X10'3 (140-440); RED CELL DISTRIBUTION WIDTH 20.9 % (11.5-14.5); WHITE BLOOD COUNT 9.3 X10'3 (4.5-11.0)
[2021-06-02 12:25] LABS: ALANINE AMINOTRANSFERASE 34 U/L (12-78); ALBUMIN 1.9 G/DL (3.4-5.0); ALBUMIN/GLOBULIN RATIO 0.6 (1.1-1.5); ALKALINE PHOSPHATASE 181 IU/L (46-116); ANION GAP 11 (8-16); ASPARTATE AMINO TRANSFERASE 22 U/L (10-37); BILIRUBIN,TOTAL 0.4 MG/DL (0.1-1.0); BLOOD UREA NITROGEN 72 MG/DL (7-18); BUN/CREATININE RATIO 20.6 (5.4-32.0); CALCIUM 8.5 MG/DL (8.5-10.1); CHLORIDE 103 MMOL/L (99-107); GLUCOSE 129 MG/DL (70-104); SODIUM 139 MMOL/L (135-145); TOTAL CARBON DIOXIDE 25.2 MMOL/L (24-32); TOTAL PROTEIN 5.3 G/DL (6.4-8.2); eGFR 17 ML/MIN
--- NOTE | 2021-06-02 12:38 | NUR ---
F/u 3/: Pt extubated yesterday failed CUB REPORTER BSS this AM now s/p NG placement per RN w/ TF to resume today per virtual customer assistant at rounds. Glu 52mg/dl this AM improved to 129mg/dl s/p D50 this AM per EMR. Pt remains on intermittent HD w/ electrolytes WNL this AM outside Mg 2.6 per EMR. LBM 3. Will continue to monitor for TF tolerance and further adjustment needs. Recommendations: 1. Continuous TF using Pivot 1.5 with 54 mL/hr goal to provide 1296 mL volume/day, 1944 kcal, 972 mL water, and 122 g protein. 2. Monitor Propofol rate and need to adjust TF rate 3. IF sepsis resolves; consider TF using Nepro 1.8 at 52ml/hr goal 4. Additional water flush per virtual customer assistant given CKD , on HD 5. Prealbumin q Monday/; Daily scaled weights 6. Routine Phos binder per MD 7. Routine bowel care 8. advance diet as medically indicated per CUB REPORTER/MD to regular; consider renal restriction IF PO intake adequate Addendum: 06/02/21 at [address] Amended: Links added. Addendum: 06/02/21 at [address] CORRECTION: Recommendations: 1. Continuous TF using Pivot 1.5 with 54 mL/hr goal to provide 1296 mL volume/day, 1944 kcal, 972 mL water, and 122 g protein. 2. IF sepsis resolves; consider TF using Nepro 1.8 at 52ml/hr goal 3. Additional water flush per virtual customer assistant given CKD , on HD 4. Prealbumin q Monday/; Daily scaled weights 5. Routine Phos binder per MD 6. Routine bowel care 8. advance diet as medically indicated per CUB REPORTER/MD to regular; consider renal restriction IF PO intake adequate
[2021-06-02] MEDS ORDERED: DEXTROSE 15 GM of carb/4 tabs (each vial/BOTTLE has 4 tablets) CORPAK PRN ×2 (15:32→15:33)
[2021-06-02] MEDS: acetaminophen 325mg/10.15ml oral unit dose solution CORPAK PRN (17:33)
[2021-06-02] MEDS: HYDROcodone/acetaminophen 5mg/325mg tablet PO PRN (17:47)
[2021-06-02] MEDS: meropenem inj 500 MG in normal saline 100ml IV soln 100 ML IV SCH (19:34)
[2021-06-02] MEDS: insulin glargine (Lantus) pen - multi-dose SQ SCH (21:00)
[2021-06-02] MEDS: gabapentin 300mg capsule CORPAK SCH (21:20)
[2021-06-02] MEDS ORDERED: fentaNYL/PF 50MCG/1 ML 2ML syringe IV ONE (21:30)
[2021-06-03] VITALS (25 sets, daily range): BP systolic 77–171; BP diastolic 46–82
[2021-06-03] MEDS: dexmedetomidine/D5W 100mL 100 ML IV SCH ×4 (00:14→22:07)
[2021-06-03] MEDS: heparin, porcine 5000 units/ml vial SQ SCH ×3 (00:18→23:49)
[2021-06-03] MEDS: mineral oil/petrolatum ophthal oint EACHEYE SCH ×3 (02:00→19:09)
[2021-06-03] MEDS: HYDROcodone/acetaminophen 5mg/325mg tablet PO PRN ×2 (02:31→19:19)
[2021-06-03 04:22] LABS: ALANINE AMINOTRANSFERASE 28 U/L (12-78); ALBUMIN 1.6 G/DL (3.4-5.0); ALBUMIN/GLOBULIN RATIO 0.5 (1.1-1.5); ALKALINE PHOSPHATASE 146 IU/L (46-116); ANION GAP 12 (8-16); ASPARTATE AMINO TRANSFERASE 19 U/L (10-37); BILIRUBIN,TOTAL 0.4 MG/DL (0.1-1.0); BLOOD UREA NITROGEN 78 MG/DL (7-18); BUN/CREATININE RATIO 19.5 (5.4-32.0); CALCIUM 7.7 MG/DL (8.5-10.1); CHLORIDE 103 MMOL/L (99-107); CREATININE 4.01 MG/DL (0.60-1.10); GLUCOSE 210 MG/DL (70-104); MAGNESIUM 2.4 MG/DL (1.5-2.4); PHOSPHORUS 5.5 MG/DL (2.3-4.5); SODIUM 137 MMOL/L (135-145); TOTAL CARBON DIOXIDE 22.5 MMOL/L (24-32); TOTAL PROTEIN 5.1 G/DL (6.4-8.2); eGFR 15 ML/MIN
[2021-06-03 04:52] LABS: BASOPHILS # (AUTO) 0.1 X10'3 (0-0.2); BASOPHILS % (AUTO) 1.2 % (0-1); EOSINOPHILS # (AUTO) 0.1 X10'3 (0-0.9); HEMOGLOBIN 7.1 g/dl (14.0-17.9); LYMPHOCYTES # (AUTO) 0.3 X10'3 (1.1-4.8); LYMPHOCYTES % (AUTO) 6.8 % (21-51); MEAN CORPUSCULAR HEMOGLOBIN 30.9 PG (27.0-31.0); MEAN CORPUSCULAR HGB CONC 32.6 g/dL (33.0-36.5); MEAN CORPUSCULAR VOLUME 94.8 FL (78-98); MEAN PLATELET VOLUME 7.9 FL (7.4-10.4); MONOCYTES # (AUTO) 0.3 X10'3 (0-0.9); MONOCYTES % (AUTO) 7.3 % (2-12); NEUTROPHILS # (AUTO) 3.7 X10'3 (1.8-7.7); NEUTROPHILS % (AUTO) 81.7 % (42-75); PLATELET COUNT 111 X10'3 (140-440); RED BLOOD COUNT 2.28 X10'6 (4.70-6.10); RED CELL DISTRIBUTION WIDTH 20.3 % (11.5-14.5); WHITE BLOOD COUNT 4.5 X10'3 (4.5-11.0)
[2021-06-03 05:01] LABS: HEMATOCRIT 21.7 % (42.0-52.0)
[2021-06-03 05:03] LABS: ALANINE AMINOTRANSFERASE 9 U/L (12-78); ALBUMIN 1.6 G/DL (3.4-5.0); ALBUMIN/GLOBULIN RATIO 0.4 (1.1-1.5); ALKALINE PHOSPHATASE 143 IU/L (46-116); ANION GAP 11 (8-16); ASPARTATE AMINO TRANSFERASE 18 U/L (10-37); BILIRUBIN,TOTAL 0.4 MG/DL (0.1-1.0); BLOOD UREA NITROGEN 80 MG/DL (7-18); BUN/CREATININE RATIO 19.5 (5.4-32.0); CHLORIDE 106 MMOL/L (99-107); GLUCOSE 129 MG/DL (70-104); MAGNESIUM 2.6 MG/DL (1.5-2.4); PHOSPHORUS 5.7 MG/DL (2.3-4.5); POTASSIUM 5.2 MMOL/L (3.5-5.1); SODIUM 140 MMOL/L (135-145); TOTAL CARBON DIOXIDE 23.1 MMOL/L (24-32); TOTAL PROTEIN 5.2 G/DL (6.4-8.2); eGFR 14 ML/MIN
--- NOTE | 2021-06-03 06:09 | NUR ---
Problems reprioritized. Patient report given, questions answered & plan of care reviewed with DARION Connolly.
[2021-06-03] MEDS ORDERED: EPOETIN ALFA-EPBX 20,000 UNIT/ML 1 ML MDV IV ONE ×2 (07:45→08:00)
[2021-06-03] MEDS ORDERED: heparin 1,000 units/ml 10ml inj HE ONE ×2 (08:00)
[2021-06-03] MEDS ORDERED: albumin (human) 25% 100ml IV 100 ML IV PRN (08:00)
[2021-06-03] MEDS ORDERED: heparin 1,000 units/ml 10ml inj IV ONE (08:00)
[2021-06-03] MEDS ORDERED: heparin 1,000unit/ml 10ml vial 10 ML IV ONE (08:00)
[2021-06-03] MEDS: ipratropium/albuterol 3ml nebule NEB SCH ×5 (08:49→23:22)
[2021-06-03] MEDS: aspirin 81mg tab.chew CORPAK SCH (09:55)
[2021-06-03] MEDS: docusate sodium 100mg/10ml UD cup CORPAK SCH ×2 (09:55→19:20)
[2021-06-03] MEDS: calcium carbonate/vitamin D3 tablet CORPAK SCH (09:55)
[2021-06-03] MEDS: MULTIVIT-MIN/FERROUS GLUCONATE 9 MG/15 ML LIQUID CORPAK SCH (09:56)
[2021-06-03] MEDS: gabapentin 300mg capsule CORPAK SCH (09:56)
[2021-06-03] MEDS: pantoprazole 40MG/NS 100ML BAG 100 ML IV SCH (09:56)
[2021-06-03] MEDS: fluconazole-Diflucan 200mg/NS 100 ML IV SCH (09:56)
[2021-06-03] MEDS ORDERED: albuterol 2.5 MG/3 ML nebule NEB PRN (10:55)
[2021-06-03] MEDS: methylPREDNISolone sod succ/PF 40mg inj. IV SCH ×2 (15:45→20:34)
[2021-06-03 15:52] LABS: FERRITIN 763 NG/ML (26-388)
[2021-06-03 15:53] LABS: % IRON SATURATION 22 % (11-46); IRON 34 UG/DL (53-167); TOTAL IRON BINDING CAPACITY 156 UG/DL (259-388)
[2021-06-03] MEDS: meropenem inj 500 MG in normal saline 100ml IV soln 100 ML IV SCH (19:20)
[2021-06-03] MEDS: insulin regular, human U-100 3ml vial - multi-dose SQ SCH (20:42)
[2021-06-03] MEDS: insulin glargine (Lantus) pen - multi-dose SQ SCH (20:44)
[2021-06-04] VITALS (27 sets, daily range): BP systolic 112–185; BP diastolic 56–89
[2021-06-04] MEDS: mineral oil/petrolatum ophthal oint EACHEYE SCH (02:00)
[2021-06-04] MEDS: methylPREDNISolone sod succ/PF 40mg inj. IV SCH ×4 (02:01→19:58)
[2021-06-04] MEDS: labetalol 20mg/4ml (5mg/ml) syringe IV PRN (02:10)
[2021-06-04] MEDS: insulin regular, human U-100 3ml vial - multi-dose SQ SCH ×2 (02:13→20:19)
[2021-06-04] MEDS: dexmedetomidine/D5W 100mL 100 ML IV SCH ×4 (03:35→23:19)
[2021-06-04 03:47] LABS: BASOPHILS # (AUTO) 0.1 X10'3 (0-0.2); HEMATOCRIT 26.8 % (42.0-52.0); LYMPHOCYTES # (AUTO) 0.1 X10'3 (1.1-4.8); WHITE BLOOD COUNT 3.1 X10'3 (4.5-11.0)
[2021-06-04 03:49] LABS: BASOPHILS % (AUTO) 4.2 % (0-1); EOSINOPHILS % (AUTO) 0.1 % (0-6); HEMOGLOBIN 8.7 g/dl (14.0-17.9); LYMPHOCYTES % (AUTO) 4.2 % (21-51); MEAN CORPUSCULAR HGB CONC 32.4 g/dL (33.0-36.5); MEAN CORPUSCULAR VOLUME 95.8 FL (78-98); MEAN PLATELET VOLUME 8.8 FL (7.4-10.4); MONOCYTES % (AUTO) 1.2 % (2-12); NEUTROPHILS # (AUTO) 2.8 X10'3 (1.8-7.7); NEUTROPHILS % (AUTO) 90.3 % (42-75); PLATELET COUNT 126 X10'3 (140-440)
[2021-06-04 04:09] LABS: ALANINE AMINOTRANSFERASE 29 U/L (12-78); ALBUMIN 1.9 G/DL (3.4-5.0); ALBUMIN/GLOBULIN RATIO 0.5 (1.1-1.5); ALKALINE PHOSPHATASE 186 IU/L (46-116); ANION GAP 8 (8-16); ASPARTATE AMINO TRANSFERASE 16 U/L (10-37); BILIRUBIN,TOTAL 0.3 MG/DL (0.1-1.0); BLOOD UREA NITROGEN 64 MG/DL (7-18); BUN/CREATININE RATIO 20.4 (5.4-32.0); CALCIUM 7.8 MG/DL (8.5-10.1); CHLORIDE 102 MMOL/L (99-107); CREATININE 3.14 MG/DL (0.60-1.10); GLUCOSE 295 MG/DL (70-104); MAGNESIUM 2.5 MG/DL (1.5-2.4); PHOSPHORUS 5.7 MG/DL (2.3-4.5); POTASSIUM 5.3 MMOL/L (3.5-5.1); SODIUM 136 MMOL/L (135-145); TOTAL CARBON DIOXIDE 26.2 MMOL/L (24-32); TOTAL PROTEIN 5.9 G/DL (6.4-8.2); eGFR 19 ML/MIN
[2021-06-04] MEDS: ipratropium/albuterol 3ml nebule NEB SCH ×6 (04:09→23:27)
[2021-06-04 04:38] LABS: TOTAL CELLS COUNTED 100
[2021-06-04 04:39] LABS: ANISOCYTOSIS 2+; PLATELET ESTIMATE DECREASED
--- NOTE | 2021-06-04 06:13 | NUR ---
Problems reprioritized. Patient report given, questions answered & plan of care reviewed with, Portia ORLANDO.
[2021-06-04] MEDS: LIDOcaine 5% patch TP SCH ×2 (07:03→08:00)
[2021-06-04] MEDS: pantoprazole 40MG/NS 100ML BAG 100 ML IV SCH (07:50)
[2021-06-04] MEDS: docusate sodium 100mg/10ml UD cup CORPAK SCH ×2 (07:54→19:55)
[2021-06-04] MEDS: calcium carbonate/vitamin D3 tablet CORPAK SCH (07:54)
[2021-06-04] MEDS: aspirin 81mg tab.chew CORPAK SCH (07:54)
[2021-06-04] MEDS: MULTIVIT-MIN/FERROUS GLUCONATE 9 MG/15 ML LIQUID CORPAK SCH (07:55)
[2021-06-04] MEDS: allopurinol 100mg tablet CORPAK SCH (07:55)
[2021-06-04] MEDS: heparin, porcine 5000 units/ml vial SQ SCH ×3 (07:55→23:20)
[2021-06-04] MEDS: fluconazole-Diflucan 200mg/NS 100 ML IV SCH (07:56)
[2021-06-04] MEDS ORDERED: sod chloride 0.9% 10ml flush syringe IV ONE (08:00)
[2021-06-04] MEDS ORDERED: rocuronium 10mg/ml inj IV ONE (08:00)
[2021-06-04] MEDS ORDERED: etomidate 2mg/ml inj. ONE (08:00)
[2021-06-04] MEDS: dextrose 50%-water 50ml dispensing syringe IV PRN ×3 (08:26→10:53)
--- NOTE | 2021-06-04 11:41 | NUR ---
F/U 06/04: Pt on 2L HFNC and seen by SISAL OPERATOR 06/04 for BSS, still not safe for PO per EMR. Per RN at critical care rounds tube feed was turned off at night for unknown reasons after given Insulin and Glu 17 mg/dl this AM, though now corrected. TF resumed this morning per RN and pt continues to tolerate TF w/ GRV WNL per EMR. Per documentation pt received HD 3/ w/ 3.8L output and electrolytes K 5.3H, Mg 2.5H, and Phos 5.7H. Despite elevated electrolytes, recommend continuing with current TF formula to best meet pt's estimated nutrient needs, discussed w/ MD. LBM 06/03. Will continue to follow for TF tolerance and further adjustment needs. Recommendations: 1. Continuous TF using Pivot 1.5 with 54 mL/hr goal to provide 1296 mL volume/day, 1944 kcal, 972 mL water, and 122 g protein. 2. IF sepsis resolves; consider TF using Nepro 1.8 at 52ml/hr goal 3. Additional water flush per editing internship given CKD , on HD 4. Prealbumin q Monday/; Daily scaled weights 5. Routine Phos binder per MD 6. Routine bowel care 8. Advance diet as medically indicated per SISAL OPERATOR/MD to regular; consider renal restriction IF PO intake adequate Addendum: 06/04/21 at 1141 by Ratna [address] Intern RD Amended: Links added. Addendum: 06/04/21 at [address] I have reviewed and agree with note by Shipping TechnicianMirta Smith RD
[2021-06-04] MEDS: metoprolol tartrate 50mg tablet CORPAK SCH ×2 (12:27→19:58)
[2021-06-04] MEDS: hyDRALAzine 10mg tablet CORPAK SCH ×2 (12:28→19:57)
[2021-06-04 17:20] LABS: ABG OXYGEN SATURATION 83.8 % (94-97); ABG PO2 (T) 69.9 mmHg (75.0-100.0); ALLEN'S TEST POSITIVE; FCOHb 0.7 % (0.0-3.9); FLOW 5 L/min; FMetHb 0.5 % (0.0-1.5); FO2Hb 82.8 % (94-97); PATIENT TEMPERATURE 36.3; TOTAL HEMOGLOBIN 12.7 G/dl (14.0-18.0)
--- NOTE | 2021-06-04 17:55 | NUR ---
Attempted to call Davey(son) at [phone] at 1751 to notify him that we had to intubate his father. The call went straight to voicemail and said the mailbox was full. Will attempt again prior to leaving from my shift.
[2021-06-04] MEDS: FENTANYL-0.9 % NACL/PF 100 ML IV PRN (18:29)
[2021-06-04] MEDS: propofol 1000mg/100ml bottle 100 ML IV SCH (18:30)
--- NOTE | 2021-06-04 18:59 | NUR ---
1710 Went into pt's room as the blood pressure alarm was going off for high bp reading of 185/79. Started to adjust cuff and noticed that the patient felt cool and clammy. Since the patient had already had 2 episodes of hypoglycemia today, I was thinking that maybe this was what was happening again. I ran to get the glucometer to check the blood sugar. Resulted at 241. Dr Jenkins was called at this time to notify him of change in patient's condition. RT on the floor and called for an ABG because the patient was still unresponsive after several attempts at trying to get that patient to respond. ABG resulted as follows: pH 6.799 pCO2 >171 pO2 69.9 no HCO3 raeding noted on the report. 1720 Dr. Jenkins called for update on the ABG results and stated he is coming to the unit now. In the meantime, we are activly bagging the patient and awaiting MD arrival. 1730 Dr. Jenkins at bedside and preparing for intubation. 1736 Pt intubated with positive color change. ETT 8.0 noted 25 at the gum line Chest xray ordered to confirm placement as well as other post Addendum: 06/04/21 at 1916 by Portia Davidson RN As well as other post-intubation orders. Will report off to the on-coming nurse and will also make aware that I attempted to call son and the phone call went straight to voicemail Addendum: 06/04/21 at 1917 by Portia Davidson RN with the mailbox saying it's full.
--- NOTE | 2021-06-04 19:17 | NUR ---
Attempted again to call Davey(patient's son) to notify of intubation without success. Again the call went straight to voicemail and said the mailbox was full.
[2021-06-04] MEDS: meropenem inj 500 MG in normal saline 100ml IV soln 100 ML IV SCH (19:58)
[2021-06-04] MEDS: insulin glargine (Lantus) pen - multi-dose SQ SCH (20:17)
[2021-06-04] MEDS: gabapentin 300mg capsule CORPAK SCH (20:20)
[2021-06-04] MEDS: niCARDipine-NS 40mg/200ml IVPB 200 ML IV SCH (21:42)
[2021-06-04 21:44] LABS: ABG BASE EXCESS -7.6 mmol/L (-2.0-2.0); ABG HCO3 17.6 mmol/L (22.0-26.0); ABG OXYGEN SATURATION 99.5 % (94-97); ABG PCO2 (T) 32.4 mmHg (35.0-48.0); ABG PO2 (T) 423.3 mmHg (75.0-100.0); FCOHb 0.3 % (0.0-3.9); FMetHb 0.4 % (0.0-1.5); FO2Hb 98.8 % (94-97); PATIENT TEMPERATURE 35.4; PEEP 5 cm H2O; RESPIRATORY RATE 20 b/min; TIDAL VOLUME 450 mL; TOTAL HEMOGLOBIN 11.1 G/dl (14.0-18.0)
[2021-06-05] VITALS (29 sets, daily range): BP systolic 100–166; BP diastolic 50–80
[2021-06-05] MEDS: metoprolol tartrate 50mg tablet CORPAK SCH ×4 (01:04→21:01)
[2021-06-05] MEDS: hyDRALAzine 10mg tablet CORPAK SCH ×4 (01:05→21:00)
[2021-06-05] MEDS: insulin regular, human U-100 3ml vial - multi-dose SQ SCH ×4 (02:02→22:05)
[2021-06-05] MEDS: methylPREDNISolone sod succ/PF 40mg inj. IV SCH ×4 (02:02→20:59)
[2021-06-05 02:47] LABS: ALANINE AMINOTRANSFERASE 26 U/L (12-78); ALBUMIN 1.8 G/DL (3.4-5.0); ALBUMIN/GLOBULIN RATIO 0.5 (1.1-1.5); ALKALINE PHOSPHATASE 161 IU/L (46-116); ANION GAP 15 (8-16); ASPARTATE AMINO TRANSFERASE 12 U/L (10-37); BILIRUBIN,TOTAL 0.4 MG/DL (0.1-1.0); BLOOD UREA NITROGEN 90 MG/DL (7-18); BUN/CREATININE RATIO 23.7 (5.4-32.0); CALCIUM 7.2 MG/DL (8.5-10.1); CHLORIDE 100 MMOL/L (99-107); GLUCOSE 351 MG/DL (70-104); MAGNESIUM 2.7 MG/DL (1.5-2.4); PHOSPHORUS 6.4 MG/DL (2.3-4.5); POTASSIUM 5.6 MMOL/L (3.5-5.1); SODIUM 136 MMOL/L (135-145); TOTAL CARBON DIOXIDE 21.5 MMOL/L (24-32); TOTAL PROTEIN 5.4 G/DL (6.4-8.2); eGFR 16 ML/MIN
[2021-06-05 02:52] LABS: EOSINOPHILS % (AUTO) 0 % (0-6); LYMPHOCYTES # (AUTO) 0.2 X10'3 (1.1-4.8); MONOCYTES # (AUTO) 0.1 X10'3 (0-0.9); PLATELET COUNT 128 X10'3 (140-440); RED CELL DISTRIBUTION WIDTH 19.1 % (11.5-14.5); WHITE BLOOD COUNT 3.2 X10'3 (4.5-11.0)
[2021-06-05 02:53] LABS: BASOPHILS % (AUTO) 1.3 % (0-1); HEMATOCRIT 29.3 % (42.0-52.0); HEMOGLOBIN 9.5 g/dl (14.0-17.9); LYMPHOCYTES % (AUTO) 6.1 % (21-51); MEAN CORPUSCULAR HEMOGLOBIN 30.9 PG (27.0-31.0); MEAN CORPUSCULAR HGB CONC 32.5 g/dL (33.0-36.5); MEAN PLATELET VOLUME 8.8 FL (7.4-10.4); MONOCYTES % (AUTO) 4.6 % (2-12); NEUTROPHILS # (AUTO) 2.8 X10'3 (1.8-7.7); RED BLOOD COUNT 3.08 X10'6 (4.70-6.10)
[2021-06-05] MEDS: propofol 1000mg/100ml bottle 100 ML IV SCH (03:08)
[2021-06-05] MEDS: dexmedetomidine/D5W 100mL 100 ML IV SCH ×5 (03:49→22:23)
[2021-06-05] MEDS: ipratropium/albuterol 3ml nebule NEB SCH ×6 (04:01→23:29)
[2021-06-05 04:19] LABS: ABG BASE EXCESS -6.6 mmol/L (-2.0-2.0); ABG HCO3 19.1 mmol/L (22.0-26.0); ABG OXYGEN SATURATION 96.9 % (94-97); ABG PCO2 (T) 38.2 mmHg (35.0-48.0); ABG PO2 (T) 96.1 mmHg (75.0-100.0); ALLEN'S TEST POSITIVE; FCOHb 0.3 % (0.0-3.9); FMetHb 0.2 % (0.0-1.5); FO2Hb 96.4 % (94-97); PATIENT TEMPERATURE 36.8; PEEP 5 cm H2O; RESPIRATORY RATE 20 b/min; TIDAL VOLUME 400 mL; TOTAL HEMOGLOBIN 10.4 G/dl (14.0-18.0)
[2021-06-05] MEDS: docusate sodium 100mg/10ml UD cup CORPAK SCH ×2 (07:15→20:00)
[2021-06-05] MEDS: pantoprazole 40MG/NS 100ML BAG 100 ML IV SCH (07:16)
[2021-06-05] MEDS: heparin, porcine 5000 units/ml vial SQ SCH ×3 (07:16→23:32)
[2021-06-05] MEDS: aspirin 81mg tab.chew CORPAK SCH (07:16)
[2021-06-05] MEDS: calcium carbonate/vitamin D3 tablet CORPAK SCH (07:16)
[2021-06-05] MEDS: fluconazole-Diflucan 200mg/NS 100 ML IV SCH (07:17)
[2021-06-05] MEDS: niCARDipine-NS 40mg/200ml IVPB 200 ML IV SCH ×2 (07:17→16:47)
[2021-06-05] MEDS: MULTIVIT-MIN/FERROUS GLUCONATE 9 MG/15 ML LIQUID CORPAK SCH ×2 (07:18→10:01)
[2021-06-05] MEDS ORDERED: heparin 1,000unit/ml 10ml vial 10 ML IV ONE (08:00)
[2021-06-05] MEDS ORDERED: EPOETIN ALFA-EPBX 20,000 UNIT/ML 1 ML MDV IV ONE (08:00)
[2021-06-05] MEDS ORDERED: heparin 1,000 units/ml 10ml inj HE ONE ×2 (08:00)
[2021-06-05] MEDS ORDERED: heparin 1,000 units/ml 10ml inj IV ONE (08:00)
[2021-06-05] MEDS: LIDOcaine 5% patch TP SCH (08:00)
[2021-06-05] MEDS: FENTANYL-0.9 % NACL/PF 100 ML IV PRN (08:41)
--- NOTE | 2021-06-05 12:07 | NUR ---
F/u: Noted pt now intubated and pt started on Propofol, visualized at bedside to be running at 10.9 mcg/kg/min (5.11 mL/hr) which provides 135 kcal/day. No changes to TF rate warranted at this time as pt receiving kcal within estimated energy needs. LBM 3/, receiving routine bowel care. Pt to receive HD today per MD note. Will continue to follow closely. Recommendations: 1. Continuous TF using Pivot 1.5 with 54 mL/hr goal to provide 1296 mL volume/day, 1944 kcal, 972 mL water, and 122 g protein. 2. Monitor Propofol rate and need to adjust TF recs 3. IF sepsis resolves; consider TF using Nepro 1.8 with 52ml/hr goal 4. Additional water flush per manager software given CKD , on HD 5. Prealbumin q Monday/ 6. Daily scaled weights 7. Consider routine Phos binder with MD approval 8. Routine bowel care 9. Advance to regular diet as medically indicated following extubation after BSS with ST; consider renal restriction IF PO intake adequate Addendum: 06/05/21 at [address] Amended: Links added.
[2021-06-05] MEDS ORDERED: furosemide 40mg/4ml inj IV ONE (16:50)
--- NOTE | 2021-06-05 18:23 | NUR ---
Problems reprioritized. Patient report given, questions answered & plan of care reviewed with, Opal ORLANDO
--- NOTE | 2021-06-05 18:25 | NUR ---
Patient in room CICU 2009. I have received report from DARION Chin and had the opportunity to ask questions and assume patient care.
[2021-06-05] MEDS: gabapentin 300mg capsule CORPAK SCH (21:00)
[2021-06-05] MEDS: meropenem inj 500 MG in normal saline 100ml IV soln 100 ML IV SCH (21:01)
[2021-06-05] MEDS: insulin glargine (Lantus) pen - multi-dose SQ SCH (22:06)
[2021-06-06] VITALS (23 sets, daily range): BP systolic 142–195; BP diastolic 54–97
[2021-06-06] MEDS: niCARDipine-NS 40mg/200ml IVPB 200 ML IV SCH ×3 (00:47→16:47)
[2021-06-06] MEDS: dexmedetomidine/D5W 100mL 100 ML IV SCH ×3 (02:06→20:23)
[2021-06-06] MEDS: metoprolol tartrate 50mg tablet CORPAK SCH ×4 (02:19→19:15)
[2021-06-06] MEDS: hyDRALAzine 10mg tablet CORPAK SCH ×4 (02:19→19:15)
[2021-06-06] MEDS: methylPREDNISolone sod succ/PF 40mg inj. IV SCH ×4 (02:19→19:16)
[2021-06-06] MEDS: dextrose 50%-water 50ml dispensing syringe IV PRN (02:29)
[2021-06-06 03:10] LABS: BASOPHILS # (AUTO) 0.1 X10'3 (0-0.2); BASOPHILS % (AUTO) 0.8 % (0-1); EOSINOPHILS % (AUTO) 0.1 % (0-6); HEMATOCRIT 33.7 % (42.0-52.0); LYMPHOCYTES # (AUTO) 0.3 X10'3 (1.1-4.8); LYMPHOCYTES % (AUTO) 3.9 % (21-51); MEAN CORPUSCULAR HEMOGLOBIN 30.6 PG (27.0-31.0); MEAN CORPUSCULAR HGB CONC 32.5 g/dL (33.0-36.5); MEAN CORPUSCULAR VOLUME 94.1 FL (78-98); MEAN PLATELET VOLUME 9.3 FL (7.4-10.4); MONOCYTES # (AUTO) 0.3 X10'3 (0-0.9); NEUTROPHILS # (AUTO) 7.8 X10'3 (1.8-7.7); NEUTROPHILS % (AUTO) 91.2 % (42-75); PLATELET COUNT 188 X10'3 (140-440); RED BLOOD COUNT 3.59 X10'6 (4.70-6.10); RED CELL DISTRIBUTION WIDTH 19.1 % (11.5-14.5); WHITE BLOOD COUNT 8.5 X10'3 (4.5-11.0)
[2021-06-06] MEDS: ipratropium/albuterol 3ml nebule NEB SCH ×6 (03:25→22:54)
[2021-06-06 03:52] LABS: ALANINE AMINOTRANSFERASE 35 U/L (12-78); ALBUMIN 2.1 G/DL (3.4-5.0); ALBUMIN/GLOBULIN RATIO 0.6 (1.1-1.5); ALKALINE PHOSPHATASE 187 IU/L (46-116); ANION GAP 11 (8-16); ASPARTATE AMINO TRANSFERASE 25 U/L (10-37); BILIRUBIN,TOTAL 0.4 MG/DL (0.1-1.0); BLOOD UREA NITROGEN 67 MG/DL (7-18); BUN/CREATININE RATIO 26.3 (5.4-32.0); CALCIUM 7.4 MG/DL (8.5-10.1); CHLORIDE 98 MMOL/L (99-107); CREATININE 2.55 MG/DL (0.60-1.10); MAGNESIUM 2.4 MG/DL (1.5-2.4); PHOSPHORUS 3.7 MG/DL (2.3-4.5); POTASSIUM 4.4 MMOL/L (3.5-5.1); SODIUM 135 MMOL/L (135-145); TOTAL CARBON DIOXIDE 26.2 MMOL/L (24-32); TOTAL PROTEIN 5.8 G/DL (6.4-8.2); TRIGLYCERIDES 71 MG/DL (20-135); eGFR 25 ML/MIN
[2021-06-06 04:04] LABS: GLUCOSE 27 MG/DL (70-104)
--- NOTE | 2021-06-06 05:30 | NUR ---
Rounds with Dr. Hernández. Order to decrease Lantus to 6 units secondary to hypoglycemic episode at night. Also with patient drawing tidal volumes to 900 on CPAP, order to decrease IPAP slowly to see if patient will tolerate lower tidal volumes. IPAP decreased to 13
--- NOTE | 2021-06-06 06:28 | NUR ---
Problems reprioritized. Patient report given, questions answered & plan of care reviewed with DARION Lynch.
[2021-06-06 07:19] LABS: ANISOCYTOSIS 2+; PLATELET ESTIMATE NORMAL
[2021-06-06 07:22] LABS: SCHISTOCYTES FEW
[2021-06-06] MEDS: docusate sodium 100mg/10ml UD cup CORPAK SCH (08:00)
[2021-06-06] MEDS: LIDOcaine 5% patch TP SCH (08:00)
[2021-06-06] MEDS: allopurinol 100mg tablet CORPAK SCH (08:08)
[2021-06-06] MEDS: heparin, porcine 5000 units/ml vial SQ SCH ×2 (08:08→16:48)
[2021-06-06] MEDS: MULTIVIT-MIN/FERROUS GLUCONATE 9 MG/15 ML LIQUID CORPAK SCH (08:08)
[2021-06-06] MEDS: fluconazole-Diflucan 200mg/NS 100 ML IV SCH (08:09)
[2021-06-06] MEDS: aspirin 81mg tab.chew CORPAK SCH (08:09)
[2021-06-06] MEDS: calcium carbonate/vitamin D3 tablet CORPAK SCH (08:09)
[2021-06-06] MEDS: pantoprazole 40MG/NS 100ML BAG 100 ML IV SCH (08:10)
[2021-06-06] MEDS: insulin regular, human U-100 3ml vial - multi-dose SQ SCH ×3 (08:13→20:13)
[2021-06-06] MEDS ORDERED: hydrALAZINE 20mg/ml inj. IV ONE (17:00)
[2021-06-06] MEDS: hydrALAZINE 20mg/ml inj. IV PRN (17:01)
--- NOTE | 2021-06-06 18:30 | NUR ---
[facility] I have received report from DARION Lynch and had the opportunity to ask questions and assume patient care. Upon initial assessment prior to report from skip. Patient with epistaxis to right nare and appeared to have coughed up a large amount of thick white phlegm with large amount of saliva in CPAP mask. Patient oxygen saturation 98% on 30% FiO2 on CPAP. Patient placed on 6 lpm nasal cannula while he was cleaned up. Tolerated only for approximately 10 minutes, then desaturated to 89%. Patient was placed back on CPAP mask and turned for change of bed linen. Patient is oriented to person only. Patient head of bed raised up high. In view of RN. Addendum: 06/06/21 at 2140 by Melissa Rolon RN correction patient is on BiPap
--- NOTE | 2021-06-06 18:37 | NUR ---
0700- Pt very T[place]A, bipap on. oriented to self 0900- switched to 3 lt nc. Pt really has a difficult clearing secretions, NT suction x1, with results and slight bloody nose.. Dr Harvey here, wean precedex. 1100- Dr Buitrago here, confirmed remove samantha. 1000- coarse brochial lung sounds, bipap back on 1220- Back on O2 @2lt 1300- NT sx with same results. 1700- elevated BP, IV hydralazine given.
[2021-06-06] MEDS: meropenem inj 500 MG in normal saline 100ml IV soln 100 ML IV SCH (19:20)
[2021-06-06] MEDS ORDERED: quetiapine 100mg tablet PO SCH (20:00)
[2021-06-06] MEDS: insulin glargine (Lantus) pen - multi-dose SQ SCH (20:14)
[2021-06-06] MEDS: gabapentin 300mg capsule CORPAK SCH (20:22)
[2021-06-06] MEDS: acetaminophen 325mg/10.15ml oral unit dose solution CORPAK PRN (22:48)
--- NOTE | 2021-06-06 23:40 | NUR ---
Oral care provided for patient. Patient tolerating Bipap mask being off for a short period of time before increased effort noted and decreased oxygen saturation. NG site assessed, no skin breakdown noted. Patient relates that his legs are causing him pain. He agrees that it is because of his chronic neuropathy. Encouraged patient to deep breath and cough while mask was off. patient with weak non productive cough. BiPap mask replaced to patients face with adequate seal and gel padding in place over bridge of nose.
[2021-06-07] VITALS (24 sets, daily range): BP systolic 130–193; BP diastolic 54–96
[2021-06-07] MEDS: heparin, porcine 5000 units/ml vial SQ SCH ×4 (00:07→22:03)
[2021-06-07] MEDS: temazepam 15mg capsule CORPAK PRN (00:07)
[2021-06-07] MEDS: niCARDipine-NS 40mg/200ml IVPB 200 ML IV SCH ×2 (00:14→08:44)
--- NOTE | 2021-06-07 00:14 | NUR ---
Patient continues to be restless, appears to be attempting to sleep. Offered sleeping aid. Restoril administered via NG per order. Patient repositioned for comfort.
[2021-06-07] MEDS: metoprolol tartrate 50mg tablet CORPAK SCH ×5 (02:00→20:32)
[2021-06-07] MEDS: methylPREDNISolone sod succ/PF 40mg inj. IV SCH ×4 (02:10→20:32)
[2021-06-07] MEDS: hyDRALAzine 10mg tablet CORPAK SCH ×5 (02:10→20:31)
[2021-06-07] MEDS: ipratropium/albuterol 3ml nebule NEB SCH ×6 (02:46→23:11)
[2021-06-07] MEDS: insulin regular, human U-100 3ml vial - multi-dose SQ SCH ×4 (02:47→20:50)
[2021-06-07] MEDS: dexmedetomidine/D5W 100mL 100 ML IV SCH (03:09)
[2021-06-07 03:30] LABS: BASOPHILS # (AUTO) 0.1 X10'3 (0-0.2); EOSINOPHILS % (AUTO) 0 % (0-6); HEMATOCRIT 29.6 % (42.0-52.0); HEMOGLOBIN 9.6 g/dl (14.0-17.9); LYMPHOCYTES # (AUTO) 0.3 X10'3 (1.1-4.8); LYMPHOCYTES % (AUTO) 5.4 % (21-51); MEAN CORPUSCULAR HEMOGLOBIN 30.6 PG (27.0-31.0); MEAN CORPUSCULAR HGB CONC 32.5 g/dL (33.0-36.5); MEAN PLATELET VOLUME 8.6 FL (7.4-10.4); MONOCYTES # (AUTO) 0.2 X10'3 (0-0.9); MONOCYTES % (AUTO) 2.7 % (2-12); NEUTROPHILS % (AUTO) 90.9 % (42-75); PLATELET COUNT 168 X10'3 (140-440); RED BLOOD COUNT 3.15 X10'6 (4.70-6.10); RED CELL DISTRIBUTION WIDTH 18.9 % (11.5-14.5); WHITE BLOOD COUNT 5.6 X10'3 (4.5-11.0)
[2021-06-07 03:49] LABS: ALANINE AMINOTRANSFERASE 27 U/L (12-78); ALBUMIN 1.9 G/DL (3.4-5.0); ALBUMIN/GLOBULIN RATIO 0.6 (1.1-1.5); ALKALINE PHOSPHATASE 163 IU/L (46-116); ASPARTATE AMINO TRANSFERASE 8 U/L (10-37); BILIRUBIN,TOTAL 0.3 MG/DL (0.1-1.0); BLOOD UREA NITROGEN 101 MG/DL (7-18); BUN/CREATININE RATIO 28.6 (5.4-32.0); CALCIUM 6.9 MG/DL (8.5-10.1); CHLORIDE 100 MMOL/L (99-107); CREATININE 3.53 MG/DL (0.60-1.10); GLUCOSE 134 MG/DL (70-104); MAGNESIUM 2.5 MG/DL (1.5-2.4); PHOSPHORUS 3.9 MG/DL (2.3-4.5); POTASSIUM 5.5 MMOL/L (3.5-5.1); PREALBUMIN 30.7 MG/DL (19-36); SODIUM 136 MMOL/L (135-145); eGFR 17 ML/MIN
[2021-06-07 03:52] LABS: ANION GAP 12 (8-16); TOTAL CARBON DIOXIDE 23.6 MMOL/L (24-32)
--- NOTE | 2021-06-07 04:30 | NUR ---
Rounds with Dr. Rodgers. Reviewed current labs, plan of care and current status of patient. Reviewed events of the night. Order to decrease IPAP to 10 and EPAP to 5 on BiPAP settings. MD would like to see a trial of high flow nasal cannula instead of the BiPAP. enrollment services vice president may be needed to help with contacting family for plan of care.
[2021-06-07] MEDS ORDERED: heparin 1,000unit/ml 10ml vial 10 ML IV ONE (05:50)
[2021-06-07] MEDS ORDERED: heparin 1,000 units/ml 10ml inj IV ONE (05:50)
[2021-06-07] MEDS ORDERED: EPOETIN ALFA-EPBX 20,000 UNIT/ML 1 ML MDV IV ONE (05:50)
[2021-06-07] MEDS ORDERED: albumin (human) 25% 100ml IV 100 ML IV PRN (05:50)
--- NOTE | 2021-06-07 06:21 | NUR ---
Problems reprioritized. Patient report given, questions answered & plan of care reviewed with DARION Peterson.
[2021-06-07] MEDS ORDERED: docusate sodium 100mg/10ml UD cup NG PRN (08:00)
[2021-06-07] MEDS: LIDOcaine 5% patch TP SCH (08:00)
[2021-06-07] MEDS: calcium carbonate/vitamin D3 tablet CORPAK SCH (08:41)
[2021-06-07] MEDS: aspirin 81mg tab.chew CORPAK SCH (08:41)
[2021-06-07] MEDS: MULTIVIT-MIN/FERROUS GLUCONATE 9 MG/15 ML LIQUID CORPAK SCH (08:42)
[2021-06-07] MEDS: pantoprazole 40MG/NS 100ML BAG 100 ML IV SCH (08:43)
[2021-06-07 09:40] LABS: ABG PCO2 (T) > 150.0 mmHg (35.0-48.0)
[2021-06-07] MEDS: fluconazole-Diflucan 200mg/NS 100 ML IV SCH (11:43)
[2021-06-07] MEDS: QUEtiapine 25mg tablet NG SCH ×2 (11:44→20:32)
[2021-06-07] MEDS: SODIUM ZIRCONIUM CYCLOSILICATE 10 GM POWD.PACK PO SCH ×3 (11:50→21:56)
--- NOTE | 2021-06-07 17:00 | NUR ---
Phone call to Dr. Woody RE: unequal pupils. Patients right pupil is dilated more than the left pupil. both are reactive to light. No facial droop noted, patient able to raise eye brows and close eyes equally, smile is symmetrical. 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 Patient is more oriented tonight than previous shift assessment by this RN. Patient is able to state name, he knows he is in a " medical center" is confused on town believe he is in "[place]", patient reoriented. Patient is not able to recall the reason he is in the hospital. Dr. Woody ordered patient to be on nasal cannula at 3 lpm for 2 hours then check an ABG, she will visually assessment him when the ABG results are back. Addendum: 06/07/21 at 2027 by Melissa Rolon RN TIME 1899
--- NOTE | 2021-06-07 18:23 | NUR ---
Patient in room CICU 2009. I have received report from DARION Peterson and had the opportunity to ask questions and assume patient care. Patient is awake and alert in bed with BiPAP mask in place. Patient without complaints at this time.
--- NOTE | 2021-06-07 18:30 | NUR ---
Patient had coughed up large amount of pink frothy sputum into BiPap mask. Mask removed for cleaning and for oral care. Patient encouraged to cough. Patient with weak but productive cough. Course audible breath sounds noted. respiratory rate 20-24 with Oxygen saturation 98% with 3 lpm nasal cannula. Patient with weak effort to use flutter valve and IS. Patient encouraged to cough up secretions.
[2021-06-07] MEDS: meropenem inj 500 MG in normal saline 100ml IV soln 100 ML IV SCH (20:31)
[2021-06-07] MEDS: insulin glargine (Lantus) pen - multi-dose SQ SCH (20:52)
[2021-06-07 21:14] LABS: ABG BASE EXCESS -4.4 mmol/L (-2.0-2.0); ABG HCO3 20.5 mmol/L (22.0-26.0); ABG OXYGEN SATURATION 97.9 % (94-97); ABG PCO2 (T) 37.9 mmHg (35.0-48.0); ABG PO2 (T) 111.2 mmHg (75.0-100.0); ALLEN'S TEST POSITIVE; FCOHb 0.2 % (0.0-3.9); FMetHb 0.3 % (0.0-1.5); FO2Hb 97.4 % (94-97); PATIENT TEMPERATURE 37.4; TOTAL HEMOGLOBIN 11.3 G/dl (14.0-18.0)
--- NOTE | 2021-06-07 21:25 | NUR ---
Dr. Woody called with ABG results and update on patients condition. okay with current settings with patient on nasal cannula at 2.5 lpm would like to see patient rotated 4 hours on nasal cannula and 4 hours on BiPap. requests a consult be placed so she will be able to view patient via telemedicine camera.
[2021-06-07] MEDS: gabapentin 300mg capsule CORPAK SCH (21:56)
[2021-06-07] MEDS ORDERED: albuterol 2.5 MG/3 ML nebule NEB SCH (22:50)
[2021-06-07] MEDS: acetylcysteine 200 MG/ml 4ml vial INH SCH (23:11)
--- NOTE | 2021-06-07 23:30 | NUR ---
Dr. Woody viewed patient via telemedicine computer. Assessed with assistance from RN. At this time MD holding off on head CT. MD would like patient to remain on nasal cannula if tolerated. Discussed patients thick pink frothy secretions. MD added order for Mucomyst nebulizer treatment.
[2021-06-08] VITALS (24 sets, daily range): BP systolic 107–171; BP diastolic 53–94
--- NOTE | 2021-06-08 | NUR ---
Patient NPO, tube feeding on hold for TDC placement this morning per MD orders. Heparin also held per MD order. NG to low intermittent suction. D10 IV started at same rate as tube feed: 54 ml/hr.
[2021-06-08] MEDS: Dextrose 10%-water IV solution 1,000 ML IV SCH ×2 (00:15→17:19)
[2021-06-08] MEDS: hyDRALAzine 10mg tablet CORPAK SCH ×4 (01:34→19:56)
[2021-06-08] MEDS: metoprolol tartrate 50mg tablet CORPAK SCH ×4 (01:34→19:55)
[2021-06-08] MEDS: methylPREDNISolone sod succ/PF 40mg inj. IV SCH ×4 (01:35→19:52)
[2021-06-08] MEDS: insulin regular, human U-100 3ml vial - multi-dose SQ SCH ×2 (01:56→16:31)
[2021-06-08 02:44] LABS: BASOPHILS # (AUTO) 0.1 X10'3 (0-0.2); BASOPHILS % (AUTO) 1.6 % (0-1); EOSINOPHILS % (AUTO) 0 % (0-6); HEMATOCRIT 31.4 % (42.0-52.0); HEMOGLOBIN 10.1 g/dl (14.0-17.9); LYMPHOCYTES # (AUTO) 0.2 X10'3 (1.1-4.8); LYMPHOCYTES % (AUTO) 2.6 % (21-51); MEAN CORPUSCULAR HEMOGLOBIN 30.4 PG (27.0-31.0); MEAN CORPUSCULAR HGB CONC 32.3 g/dL (33.0-36.5); MEAN CORPUSCULAR VOLUME 94.4 FL (78-98); MEAN PLATELET VOLUME 8.6 FL (7.4-10.4); MONOCYTES # (AUTO) 0.1 X10'3 (0-0.9); MONOCYTES % (AUTO) 1.6 % (2-12); NEUTROPHILS # (AUTO) 6.6 X10'3 (1.8-7.7); NEUTROPHILS % (AUTO) 94.2 % (42-75); PLATELET COUNT 219 X10'3 (140-440); RED BLOOD COUNT 3.33 X10'6 (4.70-6.10); RED CELL DISTRIBUTION WIDTH 19.1 % (11.5-14.5)
[2021-06-08 03:09] LABS: ALANINE AMINOTRANSFERASE 42 U/L (12-78); ALBUMIN 2.1 G/DL (3.4-5.0); ALBUMIN/GLOBULIN RATIO 0.6 (1.1-1.5); ALKALINE PHOSPHATASE 183 IU/L (46-116); ANION GAP 16 (8-16); ASPARTATE AMINO TRANSFERASE 33 U/L (10-37); BILIRUBIN,TOTAL 0.4 MG/DL (0.1-1.0); BLOOD UREA NITROGEN 123 MG/DL (7-18); BUN/CREATININE RATIO 28.9 (5.4-32.0); CALCIUM 7.2 MG/DL (8.5-10.1); CHLORIDE 97 MMOL/L (99-107); CREATININE 4.25 MG/DL (0.60-1.10); GLUCOSE 178 MG/DL (70-104); MAGNESIUM 2.6 MG/DL (1.5-2.4); PHOSPHORUS 5.4 MG/DL (2.3-4.5); POTASSIUM 5.4 MMOL/L (3.5-5.1); SODIUM 135 MMOL/L (135-145); TOTAL CARBON DIOXIDE 21.7 MMOL/L (24-32); TOTAL PROTEIN 5.7 G/DL (6.4-8.2); eGFR 14 ML/MIN
[2021-06-08] MEDS: ipratropium/albuterol 3ml nebule NEB SCH ×3 (03:09→10:59)
[2021-06-08] MEDS: acetylcysteine 200 MG/ml 4ml vial INH SCH ×2 (03:09→07:31)
--- NOTE | 2021-06-08 04:00 | NUR ---
Patient appears to be more comfortable when lying on his right side, respiratory effort decreases and patient appears to be able to sleep. Patient asks to be on his right side. He will tolerate the left side when turned onto that side. Patient was able to cough up several pink/blood mucous. Patient continues to deny any pain or discomfort.
[2021-06-08 04:16] LABS: ANISOCYTOSIS 2+; PLATELET ESTIMATE NORMAL
[2021-06-08 04:17] LABS: LARGE PLATELETS FEW; POLYCHROMASIA 1+
[2021-06-08 04:23] LABS: SCHISTOCYTES FEW
[2021-06-08 04:24] LABS: ELLIPTOCYTES FEW
[2021-06-08] MEDS: dexmedetomidine/D5W 100mL 100 ML IV SCH ×3 (06:21→20:25)
--- NOTE | 2021-06-08 06:27 | NUR ---
Problems reprioritized. Patient report given, questions answered & plan of care reviewed with DARION Martinez.
--- NOTE | 2021-06-08 06:30 | NUR ---
Received report from DARION Joseph
[2021-06-08] MEDS ORDERED: heparin 1,000 units/ml 10ml inj IV ONE (07:15)
[2021-06-08] MEDS ORDERED: albumin (human) 25% 100ml IV 100 ML IV PRN (07:15)
[2021-06-08] MEDS ORDERED: EPOETIN ALFA-EPBX 20,000 UNIT/ML 1 ML MDV IV ONE (07:15)
[2021-06-08] MEDS ORDERED: heparin 1,000unit/ml 10ml vial 10 ML IV ONE (07:15)
[2021-06-08] MEDS ORDERED: heparin 1,000 units/ml 10ml inj HE ONE ×2 (07:20)
[2021-06-08] MEDS: LIDOcaine 5% patch TP SCH (08:00)
[2021-06-08] MEDS: MULTIVIT-MIN/FERROUS GLUCONATE 9 MG/15 ML LIQUID CORPAK SCH (08:00)
[2021-06-08] MEDS ORDERED: midazolam 1 mg/ML 2ml injection ONE (08:18)
[2021-06-08] MEDS ORDERED: LIDOcaine 1% 30ml preserv. free vial ONE (08:18)
[2021-06-08] MEDS ORDERED: heparin 1,000unit/ml 10ml vial 10 ML ONE (08:18)
[2021-06-08] MEDS ORDERED: fentaNYL/PF 50MCG/1 ML 2ML syringe ONE (08:18)
[2021-06-08] MEDS: fluconazole-Diflucan 200mg/NS 100 ML IV SCH (08:33)
[2021-06-08] MEDS: QUEtiapine 25mg tablet NG SCH ×2 (08:34→19:56)
[2021-06-08] MEDS: aspirin 81mg tab.chew CORPAK SCH (08:34)
[2021-06-08] MEDS: calcium carbonate/vitamin D3 tablet CORPAK SCH (08:34)
[2021-06-08] MEDS: allopurinol 100mg tablet CORPAK SCH (08:34)
[2021-06-08] MEDS: pantoprazole 40MG/NS 100ML BAG 100 ML IV SCH (08:35)
[2021-06-08] MEDS: SODIUM ZIRCONIUM CYCLOSILICATE 10 GM POWD.PACK PO SCH (09:13)
[2021-06-08] MEDS: albuterol 2.5 MG/3 ML nebule NEB SCH ×3 (12:00→19:48)
--- NOTE | 2021-06-08 14:01 | NUR ---
F/u 06/08: Pt extubated 3/5 PM per EMR remains on NGTF at goal and tolerating. Pt temporarily NPO today pending TDC w/ HD to follow per RN. Phos 5.4 this AM per EMR; may benefit from phos binder per MD discretion. Rectal tube -100ml so far today per EMR. Remains ALOC AOx1/confused though some mentation improvement per RN; remains not safe for PO per COORDINATOR SKILL TRAINING PROGRAM note. IF continues to fail COORDINATOR SKILL TRAINING PROGRAM BSS may benefit from PEG for long-term nutrition needs. Will continue to monitor for TF tolerance and adjustment needs. Recommendations: 1. Continuous TF using Pivot 1.5 with 54 mL/hr goal to provide 1296 mL volume/day, 1944 kcal, 972 mL water, and 122 g protein. 2. Monitor Propofol rate and need to adjust TF recs 3. IF sepsis resolves; consider TF using Nepro 1.8 with 52ml/hr goal 4. Additional water flush per clin application specialist given CKD , on HD 5. Prealbumin q Monday/; Daily scaled weights 6. Consider routine Phos binder per MD discretion on HD 7. Routine bowel care 8. Advance to regular diet as medically indicated per COORDINATOR SKILL TRAINING PROGRAM/MD; consider renal restriction only IF PO intake adequate Addendum: 06/08/21 at [address] Amended: Links added.
[2021-06-08] MEDS: sodium chloride 3% for inhalation 4ml nebule IH SCH ×2 (14:38→19:48)
[2021-06-08] MEDS: heparin, porcine 5000 units/ml vial SQ SCH (16:00)
--- NOTE | 2021-06-08 18:16 | NUR ---
Report given to DARION Gonzalez
[2021-06-08] MEDS: gabapentin 300mg capsule CORPAK SCH (20:08)
[2021-06-08] MEDS: insulin glargine (Lantus) pen - multi-dose SQ SCH (20:18)
[2021-06-09] VITALS (23 sets, daily range): BP systolic 106–191; BP diastolic 51–98
[2021-06-09] MEDS: heparin, porcine 5000 units/ml vial SQ SCH ×3 (00:09→17:39)
[2021-06-09] MEDS: methylPREDNISolone sod succ/PF 40mg inj. IV SCH ×3 (01:46→19:38)
[2021-06-09] MEDS: hyDRALAzine 10mg tablet CORPAK SCH ×4 (02:00→19:37)
[2021-06-09] MEDS: metoprolol tartrate 50mg tablet CORPAK SCH ×4 (02:00→19:38)
[2021-06-09 02:31] LABS: BASOPHILS % (AUTO) 0.5 % (0-1); EOSINOPHILS % (AUTO) 0 % (0-6); HEMOGLOBIN 10.2 g/dl (14.0-17.9); LYMPHOCYTES # (AUTO) 0.2 X10'3 (1.1-4.8); LYMPHOCYTES % (AUTO) 2.1 % (21-51); MEAN CORPUSCULAR HEMOGLOBIN 31.1 PG (27.0-31.0); MEAN CORPUSCULAR VOLUME 94.4 FL (78-98); MEAN PLATELET VOLUME 8.2 FL (7.4-10.4); MONOCYTES # (AUTO) 0.2 X10'3 (0-0.9); MONOCYTES % (AUTO) 2.8 % (2-12); NEUTROPHILS # (AUTO) 7.7 X10'3 (1.8-7.7); NEUTROPHILS % (AUTO) 94.6 % (42-75); PLATELET COUNT 221 X10'3 (140-440); RED BLOOD COUNT 3.28 X10'6 (4.70-6.10); RED CELL DISTRIBUTION WIDTH 18.8 % (11.5-14.5); WHITE BLOOD COUNT 8.1 X10'3 (4.5-11.0)
[2021-06-09 02:57] LABS: ALANINE AMINOTRANSFERASE 50 U/L (12-78); ALBUMIN 1.9 G/DL (3.4-5.0); ALBUMIN/GLOBULIN RATIO 0.6 (1.1-1.5); ALKALINE PHOSPHATASE 137 IU/L (46-116); ANION GAP 11 (8-16); ASPARTATE AMINO TRANSFERASE 47 U/L (10-37); BILIRUBIN,TOTAL 0.4 MG/DL (0.1-1.0); BLOOD UREA NITROGEN 58 MG/DL (7-18); BUN/CREATININE RATIO 24.4 (5.4-32.0); CALCIUM 7.2 MG/DL (8.5-10.1); CHLORIDE 102 MMOL/L (99-107); CREATININE 2.38 MG/DL (0.60-1.10); GLUCOSE 96 MG/DL (70-104); MAGNESIUM 2.4 MG/DL (1.5-2.4); POTASSIUM 4.2 MMOL/L (3.5-5.1); SODIUM 140 MMOL/L (135-145); TOTAL CARBON DIOXIDE 26.9 MMOL/L (24-32); TOTAL PROTEIN 5.3 G/DL (6.4-8.2); eGFR 27 ML/MIN
[2021-06-09 03:57] LABS: TOTAL CELLS COUNTED 100
[2021-06-09 03:58] LABS: ANISOCYTOSIS 2+; PLATELET ESTIMATE NORMAL; POLYCHROMASIA 1+
[2021-06-09 03:59] LABS: BURR CELLS FEW; LARGE PLATELETS FEW; SCHISTOCYTES FEW
--- NOTE | 2021-06-09 06:15 | NUR ---
Problems reprioritized. Patient report given, questions answered & plan of care reviewed with DARION Dalton. Addendum: 06/09/21 at 0620 by Lisa Davidson RN Problems reprioritized. Patient report given, questions answered & plan of care reviewed with DARION James.
[2021-06-09] MEDS: albuterol 2.5 MG/3 ML nebule NEB SCH ×4 (07:33→19:45)
[2021-06-09] MEDS: sodium chloride 3% for inhalation 4ml nebule IH SCH ×3 (07:34→15:02)
[2021-06-09] MEDS: pantoprazole 40MG/NS 100ML BAG 100 ML IV SCH (08:53)
[2021-06-09] MEDS: MULTIVIT-MIN/FERROUS GLUCONATE 9 MG/15 ML LIQUID CORPAK SCH (08:54)
[2021-06-09] MEDS: calcium carbonate/vitamin D3 tablet CORPAK SCH (08:54)
[2021-06-09] MEDS: aspirin 81mg tab.chew CORPAK SCH (08:54)
[2021-06-09] MEDS: QUEtiapine 25mg tablet NG SCH ×2 (08:54→19:37)
[2021-06-09] MEDS: LIDOcaine 5% patch TP SCH (08:58)
[2021-06-09] MEDS: insulin regular, human U-100 3ml vial - multi-dose SQ SCH ×2 (09:04→15:42)
[2021-06-09] MEDS: HYDROcodone/acetaminophen 5mg/325mg tablet PO PRN ×2 (09:17→19:37)
[2021-06-09 09:43] LABS: PHOSPHORUS 5.2 MG/DL (2.3-4.5)
[2021-06-09] MEDS ORDERED: hydrALAZINE 20mg/ml inj. IV PRN (18:10)
[2021-06-09] MEDS: gabapentin 300mg capsule CORPAK SCH (20:39)
[2021-06-09] MEDS: insulin glargine (Lantus) pen - multi-dose SQ SCH (21:00)
[2021-06-10] VITALS (28 sets, daily range): BP systolic 90–186; BP diastolic 55–89
[2021-06-10] MEDS: hyDRALAzine 10mg tablet CORPAK SCH ×3 (02:35→20:00)
[2021-06-10] MEDS: insulin regular, human U-100 3ml vial - multi-dose SQ SCH ×2 (02:44→08:21)
[2021-06-10 03:15] LABS: BASOPHILS % (AUTO) 0.2 % (0-1); EOSINOPHILS % (AUTO) 0 % (0-6); HEMATOCRIT 33.1 % (42.0-52.0); HEMOGLOBIN 11.1 g/dl (14.0-17.9); LYMPHOCYTES # (AUTO) 0.2 X10'3 (1.1-4.8); MEAN CORPUSCULAR HEMOGLOBIN 31.5 PG (27.0-31.0); MEAN CORPUSCULAR HGB CONC 33.6 g/dL (33.0-36.5); MEAN CORPUSCULAR VOLUME 93.8 FL (78-98); MEAN PLATELET VOLUME 8.4 FL (7.4-10.4); MONOCYTES # (AUTO) 0.2 X10'3 (0-0.9); MONOCYTES % (AUTO) 1.7 % (2-12); NEUTROPHILS # (AUTO) 9.5 X10'3 (1.8-7.7); NEUTROPHILS % (AUTO) 96.1 % (42-75); PLATELET COUNT 283 X10'3 (140-440); RED BLOOD COUNT 3.53 X10'6 (4.70-6.10); RED CELL DISTRIBUTION WIDTH 19.3 % (11.5-14.5); WHITE BLOOD COUNT 9.9 X10'3 (4.5-11.0)
[2021-06-10 03:42] LABS: ALANINE AMINOTRANSFERASE 180 U/L (12-78); ALBUMIN 2.1 G/DL (3.4-5.0); ALBUMIN/GLOBULIN RATIO 0.6 (1.1-1.5); ALKALINE PHOSPHATASE 237 IU/L (46-116); ANION GAP 15 (8-16); ASPARTATE AMINO TRANSFERASE 57 U/L (10-37); BILIRUBIN,TOTAL 0.5 MG/DL (0.1-1.0); BLOOD UREA NITROGEN 104 MG/DL (7-18); BUN/CREATININE RATIO 29.9 (5.4-32.0); CALCIUM 7.3 MG/DL (8.5-10.1); CHLORIDE 98 MMOL/L (99-107); CREATININE 3.48 MG/DL (0.60-1.10); GLUCOSE 292 MG/DL (70-104); POTASSIUM 5.1 MMOL/L (3.5-5.1); SODIUM 137 MMOL/L (135-145); TOTAL PROTEIN 5.8 G/DL (6.4-8.2); eGFR 17 ML/MIN
[2021-06-10] MEDS ORDERED: heparin 1,000 units/ml 10ml inj IV ONE ×2 (06:15→08:00)
[2021-06-10] MEDS ORDERED: heparin 1,000unit/ml 10ml vial 10 ML IV ONE ×2 (06:15→08:00)
--- NOTE | 2021-06-10 06:19 | NUR ---
Problems reprioritized. Patient report given, questions answered & plan of care reviewed DARION Fabian
[2021-06-10] MEDS ORDERED: heparin 1,000 units/ml 10ml inj HE ONE ×4 (06:20→08:00)
--- NOTE | 2021-06-10 06:30 | NUR ---
Patient in room CICU 2009. I have received report from Yakelin ORLANDO and had the opportunity to ask questions and assume patient care.
[2021-06-10] MEDS: pantoprazole 40MG/NS 100ML BAG 100 ML IV SCH (07:52)
[2021-06-10] MEDS: heparin, porcine 5000 units/ml vial SQ SCH ×2 (07:53)
[2021-06-10] MEDS: methylPREDNISolone sod succ/PF 40mg inj. IV SCH ×2 (07:53→19:32)
[2021-06-10] MEDS: losartan 50mg tablet PO SCH (07:54)
[2021-06-10] MEDS: metoprolol tartrate 50mg tablet CORPAK SCH ×2 (07:54→20:00)
[2021-06-10] MEDS: QUEtiapine 25mg tablet NG SCH ×2 (07:55→19:32)
[2021-06-10] MEDS: calcium carbonate/vitamin D3 tablet CORPAK SCH (07:55)
[2021-06-10] MEDS: aspirin 81mg tab.chew CORPAK SCH (07:56)
[2021-06-10] MEDS: LIDOcaine 5% patch TP SCH (07:57)
[2021-06-10] MEDS: MULTIVIT-MIN/FERROUS GLUCONATE 9 MG/15 ML LIQUID CORPAK SCH (07:58)
[2021-06-10] MEDS ORDERED: EPOETIN ALFA-EPBX 20,000 UNIT/ML 1 ML MDV IV ONE (08:00)
[2021-06-10] MEDS ORDERED: albumin (human) 25% 100ml IV 100 ML IV PRN (08:00)
--- NOTE | 2021-06-10 08:00 | NUR ---
Swallow Zane to see pt for swallow eval. Zane said that he needs to remain NPO.
[2021-06-10] MEDS: albuterol 2.5 MG/3 ML nebule NEB SCH ×4 (08:37→19:14)
[2021-06-10] MEDS: sodium chloride 3% for inhalation 4ml nebule IH SCH ×4 (08:39→19:14)
--- NOTE | 2021-06-10 10:00 | NUR ---
Skin Pt bottom very raw. Dry flow's change with jenny care.
[2021-06-10] MEDS ORDERED: MIDAZolam 1 MG/ML 5ML VIAL ONE (10:53)
[2021-06-10] MEDS ORDERED: LIDOcaine Viscous 15ml cup ONE (10:53)
[2021-06-10] MEDS ORDERED: fentaNYL/PF 50MCG/1 ML 2ML syringe ONE (10:53)
--- NOTE | 2021-06-10 11:07 | NUR ---
PT PT to see pt. Tolerated PT well and GI here to pick out hand pt for PEG placement.
--- NOTE | 2021-06-10 11:22 | NUR ---
PATIENT N/A FOR 11 SVN TX
[2021-06-10] MEDS ORDERED: simethicone 40mg/0.6ml oral drops 30ml PO PRN (11:30)
[2021-06-10] MEDS ORDERED: ceFAZolin 1GM/D5W- ADD-VANTAGE 50 ML IV ONE (11:30)
--- NOTE | 2021-06-10 14:40 | NUR ---
Pt back to 2011 Pt returned from GI lab, somnolent with noted VS. Moved bed and positioned to comfort. BS checked at 23. Notified CN and covered with D50. Blood sugars recovered and pt remains somnolent.
[2021-06-10] MEDS: dextrose 50%-water 50ml dispensing syringe IV PRN (15:21)
--- NOTE | 2021-06-10 18:19 | NUR ---
Problems reprioritized. Patient report given, questions answered & plan of care reviewed with .
[2021-06-10] MEDS: gabapentin 300mg capsule CORPAK SCH (19:32)
[2021-06-10] MEDS: temazepam 15mg capsule CORPAK PRN (19:33)
[2021-06-10] MEDS: insulin glargine (Lantus) pen - multi-dose SQ SCH (19:33)
--- NOTE | 2021-06-10 19:50 | NUR ---
1999 hydralazine and Lopressor not given due trending blood pressure, current systolic is 94.
--- NOTE | 2021-06-10 20:15 | NUR ---
Patient noted to be more alert since start of shift. Follows command, answers questions appropriately. No distress noted, no c/o of pain at this time. Currently on 3L NC maintaining sats of mid 90s and higher, lungs sounds coarse, weak unproductive cough noted. Informed peg tube was placed today and to resume feeding at 1800. Bowel sounds active x4, peg dressing clean and intact, placement checked by auscultation no residual noted. Pivot 1.5 restarted at 10ml.
[2021-06-10] MEDS: HYDROcodone/acetaminophen 5mg/325mg tablet PO PRN (23:32)
[2021-06-11] VITALS (24 sets, daily range): BP systolic 119–168; BP diastolic 49–82
[2021-06-11] MEDS: hyDRALAzine 10mg tablet CORPAK SCH ×4 (02:11→20:14)
[2021-06-11] MEDS: metoprolol tartrate 50mg tablet CORPAK SCH ×4 (02:12→20:14)
[2021-06-11 02:49] LABS: BASOPHILS % (AUTO) 0.3 % (0-1); EOSINOPHILS % (AUTO) 0 % (0-6); HEMATOCRIT 34.9 % (42.0-52.0); HEMOGLOBIN 11.4 g/dl (14.0-17.9); LYMPHOCYTES # (AUTO) 0.1 X10'3 (1.1-4.8); LYMPHOCYTES % (AUTO) 1.6 % (21-51); MEAN CORPUSCULAR HEMOGLOBIN 31.1 PG (27.0-31.0); MEAN CORPUSCULAR HGB CONC 32.6 g/dL (33.0-36.5); MEAN CORPUSCULAR VOLUME 95.4 FL (78-98); MEAN PLATELET VOLUME 8.3 FL (7.4-10.4); MONOCYTES # (AUTO) 0.2 X10'3 (0-0.9); NEUTROPHILS # (AUTO) 7.1 X10'3 (1.8-7.7); NEUTROPHILS % (AUTO) 95.1 % (42-75); PLATELET COUNT 273 X10'3 (140-440); RED BLOOD COUNT 3.66 X10'6 (4.70-6.10); RED CELL DISTRIBUTION WIDTH 19.8 % (11.5-14.5); WHITE BLOOD COUNT 7.4 X10'3 (4.5-11.0)
[2021-06-11] MEDS: insulin regular, human U-100 3ml vial - multi-dose SQ SCH ×3 (02:50→20:40)
[2021-06-11 03:04] LABS: ALANINE AMINOTRANSFERASE 114 U/L (12-78); ALBUMIN 2.2 G/DL (3.4-5.0); ALBUMIN/GLOBULIN RATIO 0.6 (1.1-1.5); ALKALINE PHOSPHATASE 174 IU/L (46-116); ANION GAP 16 (8-16); ASPARTATE AMINO TRANSFERASE 26 U/L (10-37); BILIRUBIN,TOTAL 0.5 MG/DL (0.1-1.0); BLOOD UREA NITROGEN 63 MG/DL (7-18); BUN/CREATININE RATIO 25.3 (5.4-32.0); CALCIUM 7.4 MG/DL (8.5-10.1); CHLORIDE 99 MMOL/L (99-107); CREATININE 2.49 MG/DL (0.60-1.10); GLUCOSE 254 MG/DL (70-104); POTASSIUM 4.6 MMOL/L (3.5-5.1); SODIUM 140 MMOL/L (135-145); TOTAL CARBON DIOXIDE 24.9 MMOL/L (24-32); TOTAL PROTEIN 5.8 G/DL (6.4-8.2); eGFR 25 ML/MIN
[2021-06-11 04:05] LABS: TOTAL CELLS COUNTED 100
[2021-06-11 04:06] LABS: ANISOCYTOSIS 2+; PLATELET ESTIMATE NORMAL
[2021-06-11 04:07] LABS: TEAR DROP CELLS FEW; TOXIC GRANULATION 1+
[2021-06-11] MEDS: sodium chloride 3% for inhalation 4ml nebule IH SCH ×2 (07:00→19:32)
[2021-06-11] MEDS: albuterol 2.5 MG/3 ML nebule NEB SCH ×4 (07:18→19:33)
[2021-06-11] MEDS: calcium carbonate/vitamin D3 tablet CORPAK SCH (08:56)
[2021-06-11] MEDS: losartan 50mg tablet PO SCH (08:56)
[2021-06-11] MEDS: QUEtiapine 25mg tablet NG SCH ×2 (08:57→20:13)
[2021-06-11] MEDS: aspirin 81mg tab.chew CORPAK SCH (08:57)
[2021-06-11] MEDS: methylPREDNISolone sod succ/PF 40mg inj. IV SCH ×2 (08:58→20:14)
[2021-06-11] MEDS: heparin, porcine 5000 units/ml vial SQ SCH ×3 (08:58→17:47)
[2021-06-11] MEDS: pantoprazole 40MG/NS 100ML BAG 100 ML IV SCH (08:58)
[2021-06-11] MEDS: LIDOcaine 5% patch TP SCH (08:59)
[2021-06-11] MEDS: MULTIVIT-MIN/FERROUS GLUCONATE 9 MG/15 ML LIQUID CORPAK SCH (08:59)
[2021-06-11] MEDS: allopurinol 100mg tablet CORPAK SCH (09:00)
[2021-06-11] MEDS: dextrose 50%-water 50ml dispensing syringe IV PRN (09:43)
[2021-06-11] MEDS: HYDROcodone/acetaminophen 5mg/325mg tablet PO PRN (13:42)
--- NOTE | 2021-06-11 14:52 | NUR ---
Reassessment: Pt failed swallow evaluation per PLATE AND FRAME FILTER OPERATOR, and is s/p PEG tube placement 06/10 per EMR. Pt TF was resumed at 10ml/hr, though it is now at goal rate and pt tolerating w/ GRV WNL. Pt had dialysis 06/08 w/ 4L output, and is expected to have HD again tomorrow 06/12 per EMR. Pt remains on 3L HFNC per EMR. LBM 06/10, w/ documented diarrhea, however no documentation of stool output from rectal tube per I&O. Will continue to follow for TF tolerance and adjustment needs. Recommendations: 1. Continuous TF using Pivot 1.5 with 54 mL/hr goal to provide 1296 mL volume/day, 1944 kcal, 972 mL water, and 122 g protein. 2. IF sepsis resolves; consider TF using Nepro 1.8 with 52ml/hr goal 3. Additional water flush per infrastructure consultant given CKD , on HD 4. Prealbumin q Monday/; Daily scaled weights 5. Consider routine Phos binder per MD discretion on HD 6. Routine bowel care 7. Advance to regular diet as medically indicated per PLATE AND FRAME FILTER OPERATOR/MD; consider renal restriction only IF PO intake adequate Addendum: 06/11/21 at 1453 by [address] Intern RD Amended: Links added. Addendum: 06/11/21 at [address] I have reviewed and agree with note by Social Psychologist. DEB Smith
[2021-06-11] MEDS: gabapentin 300mg capsule CORPAK SCH (20:13)
[2021-06-11] MEDS: temazepam 15mg capsule CORPAK PRN (20:29)
[2021-06-11] MEDS: insulin glargine (Lantus) pen - multi-dose SQ SCH (20:35)
[2021-06-12] VITALS (19 sets, daily range): BP systolic 114–171; BP diastolic 60–86
[2021-06-12] MEDS: HYDROcodone/acetaminophen 5mg/325mg tablet PO PRN ×4 (00:51→21:44)
[2021-06-12] MEDS: heparin, porcine 5000 units/ml vial SQ SCH ×3 (01:23→16:40)
[2021-06-12] MEDS: hyDRALAzine 10mg tablet CORPAK SCH ×2 (01:24→08:40)
[2021-06-12] MEDS: metoprolol tartrate 50mg tablet CORPAK SCH ×2 (01:24→08:34)
[2021-06-12 02:34] LABS: BASOPHILS % (AUTO) 0.1 % (0-1); EOSINOPHILS % (AUTO) 0 % (0-6); HEMATOCRIT 33.7 % (42.0-52.0); HEMOGLOBIN 10.8 g/dl (14.0-17.9); LYMPHOCYTES # (AUTO) 0.1 X10'3 (1.1-4.8); LYMPHOCYTES % (AUTO) 1.4 % (21-51); MEAN CORPUSCULAR HEMOGLOBIN 30.9 PG (27.0-31.0); MEAN CORPUSCULAR HGB CONC 32.2 g/dL (33.0-36.5); MEAN CORPUSCULAR VOLUME 96.1 FL (78-98); MEAN PLATELET VOLUME 8.1 FL (7.4-10.4); MONOCYTES # (AUTO) 0.1 X10'3 (0-0.9); MONOCYTES % (AUTO) 1.4 % (2-12); NEUTROPHILS # (AUTO) 7.5 X10'3 (1.8-7.7); NEUTROPHILS % (AUTO) 97.1 % (42-75); PLATELET COUNT 259 X10'3 (140-440); RED CELL DISTRIBUTION WIDTH 20.2 % (11.5-14.5); WHITE BLOOD COUNT 7.7 X10'3 (4.5-11.0)
[2021-06-12] MEDS: insulin regular, human U-100 3ml vial - multi-dose SQ SCH ×2 (02:42→14:22)
[2021-06-12 03:00] LABS: ALANINE AMINOTRANSFERASE 74 U/L (12-78); ALBUMIN/GLOBULIN RATIO 0.6 (1.1-1.5); ALKALINE PHOSPHATASE 190 IU/L (46-116); ANION GAP 10 (8-16); ASPARTATE AMINO TRANSFERASE 31 U/L (10-37); BILIRUBIN,TOTAL 0.4 MG/DL (0.1-1.0); BLOOD UREA NITROGEN 96 MG/DL (7-18); BUN/CREATININE RATIO 27.3 (5.4-32.0); CALCIUM 7.1 MG/DL (8.5-10.1); CHLORIDE 101 MMOL/L (99-107); CREATININE 3.52 MG/DL (0.60-1.10); GLUCOSE 160 MG/DL (70-104); POTASSIUM 4.8 MMOL/L (3.5-5.1); SODIUM 138 MMOL/L (135-145); TOTAL CARBON DIOXIDE 26.7 MMOL/L (24-32); TOTAL PROTEIN 5.4 G/DL (6.4-8.2); eGFR 17 ML/MIN
--- NOTE | 2021-06-12 06:30 | NUR ---
Patient in room CICU 2009. I have received report from Noris ORLANDO and had the opportunity to ask questions and assume patient care.
[2021-06-12] MEDS: albuterol 2.5 MG/3 ML nebule NEB SCH ×4 (07:07→19:27)
[2021-06-12] MEDS: sodium chloride 3% for inhalation 4ml nebule IH SCH ×4 (07:08→19:27)
[2021-06-12] MEDS ORDERED: albumin (human) 25% 100ml IV 100 ML IV PRN (08:00)
[2021-06-12] MEDS ORDERED: heparin 1,000 units/ml 10ml inj IV ONE (08:00)
[2021-06-12] MEDS ORDERED: heparin 1,000unit/ml 10ml vial 10 ML IV ONE (08:00)
[2021-06-12] MEDS ORDERED: heparin 1,000 units/ml 10ml inj HE ONE ×2 (08:00)
[2021-06-12] MEDS: methylPREDNISolone sod succ/PF 40mg inj. IV SCH (08:26)
[2021-06-12] MEDS: pantoprazole 40MG/NS 100ML BAG 100 ML IV SCH (08:27)
[2021-06-12] MEDS: LIDOcaine 5% patch TP SCH (08:31)
[2021-06-12] MEDS: losartan 50mg tablet PO SCH (08:33)
[2021-06-12] MEDS: aspirin 81mg tab.chew CORPAK SCH (08:33)
[2021-06-12] MEDS: calcium carbonate/vitamin D3 tablet CORPAK SCH (08:35)
[2021-06-12] MEDS: QUEtiapine 25mg tablet NG SCH (08:35)
[2021-06-12] MEDS: MULTIVIT-MIN/FERROUS GLUCONATE 9 MG/15 ML LIQUID CORPAK SCH (08:36)
[2021-06-12] MEDS: allopurinol 100mg tablet CORPAK SCH (08:36)
--- NOTE | 2021-06-12 13:57 | NUR ---
Block note Pt had HD this morning with a reported 3500 cc's off. Tolerated well. Oozing around rectal tube cleaned, linen changed, pt repositioned to comfort. Pts bottom very excoriated, Calazmine cream applied after cleaned. Reported pain level down to 3 from a 6.
--- NOTE | 2021-06-12 15:05 | NUR ---
Problems reprioritized. Patient report given, questions answered & plan of care reviewed with Dana ORLANDO.
--- NOTE | 2021-06-12 15:48 | NUR ---
Transfer note Pt transferred to 354 C with belongings & meds. IV was saline locked and all ports flushed well. Met by Dana ORLANDO and pt transferred to bed using a slide board.
[2021-06-12] MEDS ORDERED: acetaminophen 325mg/10.15ml oral unit dose solution PEG PRN ×2 (15:58)
[2021-06-12] MEDS ORDERED: DEXTROSE 15 GM of carb/4 tabs (each vial/BOTTLE has 4 tablets) PEG PRN ×2 (15:59)
[2021-06-12] MEDS ORDERED: docusate sodium 100mg/10ml UD cup PEG PRN (16:00)
--- NOTE | 2021-06-12 16:01 | NUR ---
Problems reprioritized. Patient report given, questions answered & plan of care reviewed with DARION Fabian. Hydralazine, Heparin, and Metoprolol not given in CICU. Pending orders for route change. PICC assessed with adequate blood return, no complications. Addendum: 06/12/21 at 1607 by Luz Davidson RN Report received from [facility].
--- NOTE | 2021-06-12 16:03 | NUR ---
Patient in room RENEE 354. I have received report from and had the opportunity to ask questions and assume patient care. Addendum: 06/12/21 at 1606 by Luz Davidson RN Patient in room RENEE 354. I have received report from DARION Fabian and had the opportunity to ask questions and assume care. Hydralazine, Heparin, and Metoprolol not given in CICU. Pending orders for route change. PICC assessed with adequate blood return, no complications.
--- NOTE | 2021-06-12 18:30 | NUR ---
yessica greene was done prior to pt being moved to the surgical floor. Addendum: 06/13/21 at 0315 by Kathya Benitez RN Amended: Links added.
--- NOTE | 2021-06-12 18:52 | NUR ---
Patient in room RENEE 348. I have received report from KATELIN ORLANDO TRAVELER and had the opportunity to ask questions and assume patient care. Addendum: 06/12/21 at 1853 by Kathya Benitez RN Amended: Links added.
[2021-06-12] MEDS: insulin glargine (Lantus) pen - multi-dose SQ SCH (21:00)
[2021-06-12] MEDS: metoprolol tartrate 50mg tablet PEG SCH (21:38)
[2021-06-12] MEDS: QUEtiapine 25mg tablet PEG SCH (21:39)
[2021-06-12] MEDS: gabapentin 300mg capsule PEG SCH (21:45)
[2021-06-12] MEDS: hyDRALAzine 10mg tablet PEG SCH (22:04)
[2021-06-13] VITALS (8 sets, daily range): BP systolic 130–157; BP diastolic 57–79
--- NOTE | 2021-06-13 | NUR ---
Problems reprioritized. Patient report given, questions answered & plan of care reviewed with Loly Frost on [facility]. Addendum: 06/13/21 at 0031 by Kathya Benitez RN Amended: Links added.
[2021-06-13] MEDS: temazepam 15mg capsule PEG PRN (00:13)
--- NOTE | 2021-06-13 00:22 | NUR ---
Patient in room RENEE 348. to be transferred to 301, I have received report from DARION Rasheed and had the opportunity to ask questions and assume patient care. Pt has a sitter , as pulling at rectal tube, IV lines and tubings.
[2021-06-13] MEDS: ondansetron/PF 4mg/2ml inj IV PRN (00:24)
--- NOTE | 2021-06-13 00:25 | NUR ---
pt c/o nausea when vitals done and pt medicated with zofran iv for this. pt pt to be moved to tele floor and packed up belongings and meds, pictures done put in the chart on the pt"s wounds. pt taken over to pcu room 3017 for tele.
--- NOTE | 2021-06-13 00:45 | NUR ---
Pt. arrived 3017B, sitter in room with pt. TF -Picot Addendum: 06/13/21 at 0124 by Loly Cornell - Traveler DARION TF-Picot 1.5cal, infusing at 54cc/hr, via Peg tube. Rectal tube in place, pt. not following any commands, oriented x1. non verbal. Placed on Tele, bed in lowest position, side rails up x2. Call light placed within easy reach, unable to assess pt's understanding of use of call light. Will continue to monitor.
[2021-06-13] MEDS: metoprolol tartrate 50mg tablet PEG SCH ×4 (03:46→20:38)
[2021-06-13] MEDS: hyDRALAzine 10mg tablet PEG SCH ×4 (03:46→20:48)
[2021-06-13] MEDS: heparin, porcine 5000 units/ml vial SQ SCH ×3 (03:47→15:35)
[2021-06-13] MEDS: insulin regular, human U-100 3ml vial - multi-dose SQ SCH ×4 (04:52→21:33)
[2021-06-13 05:28] LABS: HEMOGLOBIN A1C 6.1 % (4.5-6.2)
--- NOTE | 2021-06-13 06:38 | NUR ---
Problems reprioritized. Patient report given, questions answered & plan of care reviewed with DARION Kaiser.
[2021-06-13] MEDS: albuterol 2.5 MG/3 ML nebule NEB SCH ×4 (07:18→20:22)
[2021-06-13] MEDS: pantoprazole 40MG/NS 100ML BAG 100 ML IV SCH (08:52)
[2021-06-13] MEDS: MULTIVIT-MIN/FERROUS GLUCONATE 9 MG/15 ML LIQUID PEG SCH (08:52)
[2021-06-13] MEDS: aspirin 81mg tab.chew PEG SCH (08:53)
[2021-06-13] MEDS: losartan 50mg tablet PEG SCH (08:53)
[2021-06-13] MEDS: calcium carbonate/vitamin D3 tablet PEG SCH (08:53)
[2021-06-13] MEDS: QUEtiapine 25mg tablet PEG SCH ×2 (08:54→20:36)
[2021-06-13] MEDS: LIDOcaine 5% patch TP SCH (08:54)
[2021-06-13] MEDS: methylPREDNISolone sod succ/PF 40mg inj. IV SCH (08:55)
[2021-06-13] MEDS: HYDROcodone/acetaminophen 5mg/325mg tablet PO PRN (09:55)
--- NOTE | 2021-06-13 17:00 | NUR ---
Mr Bowser has been assessed as indicated. He has had elevated blood sugars that nery giordano covered by nurituion Addendum: 06/13/21 at 1805 by Lupe Davidson RN nutritional scale as indicated. A message has been left for the staff auditor to see if the TF formula can be reevaluated. He has been awake he speaks a few words. He has not been agitated and has made no noted attempts to pull lines or wires. Loose stools via rectal tube continue no urine output has been noted. He did dangle at the bedside with PT. only 5ml of residuals noted with the TF this afternoon.He will continue to be monitored
--- NOTE | 2021-06-13 18:15 | NUR ---
Problems reprioritized. Patient report given, questions answered & plan of care reviewed with ROSANGELA.
--- NOTE | 2021-06-13 18:16 | NUR ---
Patient in room PCU 3017. I have received report from DARION Kaiser,and had the opportunity to ask questions and assume patient care.
[2021-06-13] MEDS: sodium chloride 3% for inhalation 4ml nebule IH SCH (20:21)
[2021-06-13] MEDS: gabapentin 300mg capsule PEG SCH (20:36)
[2021-06-13] MEDS: insulin glargine (Lantus) pen - multi-dose SQ SCH (20:46)
[2021-06-14] MEDS: heparin, porcine 5000 units/ml vial SQ SCH ×3 (00:04→15:12)
[2021-06-14 02:00] VITALS: BP 131/64
[2021-06-14] MEDS: hyDRALAzine 10mg tablet PEG SCH ×4 (02:18→20:34)
[2021-06-14] MEDS: dextrose 50%-water 50ml dispensing syringe IV PRN (02:40)
[2021-06-14] MEDS: metoprolol tartrate 50mg tablet PEG SCH ×4 (02:47→20:33)
[2021-06-14 06:00] VITALS: BP 162/63
--- NOTE | 2021-06-14 06:25 | NUR ---
Problems reprioritized. Patient report given, questions answered & plan of care reviewed with DARION Kaiser.
[2021-06-14] MEDS: albuterol 2.5 MG/3 ML nebule NEB SCH ×4 (07:13→19:34)
[2021-06-14] MEDS: sodium chloride 3% for inhalation 4ml nebule IH SCH ×4 (07:13→19:34)
[2021-06-14] MEDS: QUEtiapine 25mg tablet PEG SCH ×2 (08:00→20:34)
[2021-06-14] MEDS: calcium carbonate/vitamin D3 tablet PEG SCH (08:38)
[2021-06-14] MEDS: aspirin 81mg tab.chew PEG SCH (08:39)
[2021-06-14] MEDS: allopurinol 100mg tablet PEG SCH (08:39)
[2021-06-14] MEDS: MULTIVIT-MIN/FERROUS GLUCONATE 9 MG/15 ML LIQUID PEG SCH (08:41)
[2021-06-14] MEDS: losartan 50mg tablet PEG SCH (08:41)
[2021-06-14] MEDS: LIDOcaine 5% patch TP SCH (09:04)
--- NOTE | 2021-06-14 09:20 | NUR ---
Medication administration supervised by Clinical Nurse Instructor. Documentation reviewed with DARINO Andrade
[2021-06-14] MEDS: pantoprazole 40MG/NS 100ML BAG 100 ML IV SCH (09:55)
[2021-06-14] MEDS: methylPREDNISolone sod succ/PF 40mg inj. IV SCH (09:55)
[2021-06-14] MEDS: insulin regular, human U-100 3ml vial - multi-dose SQ SCH ×2 (10:48→15:26)
[2021-06-14 11:00] VITALS: BP 111/46
--- NOTE | 2021-06-14 11:26 | NUR ---
Charting by Nina ZARATE reviewed by Owen Freeman RN
[2021-06-14 11:47] LABS: BASOPHILS % (AUTO) 0.1 % (0-1); EOSINOPHILS % (AUTO) 0.4 % (0-6); HEMATOCRIT 31.1 % (42.0-52.0); HEMOGLOBIN 10.2 g/dl (14.0-17.9); LYMPHOCYTES # (AUTO) 0.4 X10'3 (1.1-4.8); LYMPHOCYTES % (AUTO) 4.7 % (21-51); MEAN CORPUSCULAR HEMOGLOBIN 31.3 PG (27.0-31.0); MEAN CORPUSCULAR HGB CONC 32.7 g/dL (33.0-36.5); MEAN CORPUSCULAR VOLUME 95.9 FL (78-98); MEAN PLATELET VOLUME 8.5 FL (7.4-10.4); MONOCYTES # (AUTO) 0.4 X10'3 (0-0.9); MONOCYTES % (AUTO) 5.2 % (2-12); NEUTROPHILS # (AUTO) 7.4 X10'3 (1.8-7.7); NEUTROPHILS % (AUTO) 89.6 % (42-75); PLATELET COUNT 196 X10'3 (140-440); RED BLOOD COUNT 3.25 X10'6 (4.70-6.10); RED CELL DISTRIBUTION WIDTH 20.3 % (11.5-14.5); WHITE BLOOD COUNT 8.3 X10'3 (4.5-11.0)
[2021-06-14 12:16] LABS: ALANINE AMINOTRANSFERASE 37 U/L (12-78); ALBUMIN/GLOBULIN RATIO 0.6 (1.1-1.5); ALKALINE PHOSPHATASE 170 IU/L (46-116); ANION GAP 13 (8-16); ASPARTATE AMINO TRANSFERASE 21 U/L (10-37); BILIRUBIN,TOTAL 0.4 MG/DL (0.1-1.0); BLOOD UREA NITROGEN 109 MG/DL (7-18); BUN/CREATININE RATIO 28.3 (5.4-32.0); CALCIUM 7.3 MG/DL (8.5-10.1); CHLORIDE 100 MMOL/L (99-107); CREATININE 3.85 MG/DL (0.60-1.10); GLUCOSE 321 MG/DL (70-104); POTASSIUM 5.4 MMOL/L (3.5-5.1); SODIUM 138 MMOL/L (135-145); TOTAL CARBON DIOXIDE 25.5 MMOL/L (24-32); TOTAL PROTEIN 5.6 G/DL (6.4-8.2); eGFR 15 ML/MIN
[2021-06-14 15:00] VITALS: BP 141/74
--- NOTE | 2021-06-14 16:06 | NUR ---
Charting by Moshe ZARATE reviewed by Owen Freeman RN with clarifications
[2021-06-14 18:00] VITALS: BP 149/80
--- NOTE | 2021-06-14 18:21 | NUR ---
Problems reprioritized. Patient report given, questions answered & plan of care reviewed with ROSANGELA.
[2021-06-14] MEDS: gabapentin 300mg capsule PEG SCH (20:33)
[2021-06-14] MEDS: insulin glargine (Lantus) pen - multi-dose SQ SCH (20:41)
[2021-06-14 22:00] VITALS: BP 151/69
[2021-06-15] VITALS (7 sets, daily range): BP systolic 105–161; BP diastolic 55–72
[2021-06-15] MEDS: heparin, porcine 5000 units/ml vial SQ SCH ×3 (00:01→16:00)
[2021-06-15] MEDS: hyDRALAzine 10mg tablet PEG SCH ×4 (01:51→20:30)
[2021-06-15] MEDS: metoprolol tartrate 50mg tablet PEG SCH ×4 (01:52→20:33)
--- NOTE | 2021-06-15 02:36 | NUR ---
FSBS 101, insulin coverage not required. Pt is stable, no s/s of hyper/hypoglycemia. Will continue to monitor.
[2021-06-15] MEDS: sodium chloride 3% for inhalation 4ml nebule IH SCH ×3 (07:00→14:59)
[2021-06-15] MEDS: albuterol 2.5 MG/3 ML nebule NEB SCH ×4 (07:00→21:10)
[2021-06-15] MEDS ORDERED: heparin 1,000unit/ml 10ml vial 10 ML IV ONE (07:40)
[2021-06-15] MEDS ORDERED: heparin 1,000 units/ml 10ml inj IV ONE (07:40)
[2021-06-15] MEDS ORDERED: albumin (human) 25% 100ml IV 100 ML IV PRN (07:40)
[2021-06-15] MEDS ORDERED: heparin 1,000 units/ml 10ml inj HE ONE ×2 (07:40)
[2021-06-15] MEDS ORDERED: EPOETIN ALFA-EPBX 20,000 UNIT/ML 1 ML MDV IV ONE (07:40)
[2021-06-15] MEDS: aspirin 81mg tab.chew PEG SCH (07:53)
[2021-06-15] MEDS: QUEtiapine 25mg tablet PEG SCH ×2 (07:55→20:31)
[2021-06-15] MEDS: calcium carbonate/vitamin D3 tablet PEG SCH (07:55)
[2021-06-15] MEDS: losartan 50mg tablet PEG SCH (07:55)
[2021-06-15] MEDS: MULTIVIT-MIN/FERROUS GLUCONATE 9 MG/15 ML LIQUID PEG SCH (07:55)
[2021-06-15] MEDS: LIDOcaine 5% patch TP SCH (07:56)
[2021-06-15] MEDS: methylPREDNISolone sod succ/PF 40mg inj. IV SCH (08:00)
[2021-06-15] MEDS: pantoprazole 40MG/NS 100ML BAG 100 ML IV SCH (08:00)
--- NOTE | 2021-06-15 10:15 | NUR ---
Reassessment: Pt continues w/ PEG tube, tolerating TF at goal w/ GRV WNL per EMR. Seen by FOOTWEAR SALES REPRESENTATIVE 06/14, still unsafe for PO. Pt had dialysis 06/12 w/ 3.5L output, and is expected to have HD again today 06/15 per MD note. Pt is having significant BG ranges w/ 32-539 mg/dl, though pt is on glycemic protocol and no changes to TF rate. LBM 06/14, documented w/ diarrhea and 450ml stool output w/ rectal tube per I&O. Will continue to follow for TF tolerance and adjustment needs. Recommendations: 1. Continuous TF using Pivot 1.5 with 54 mL/hr goal to provide 1296 mL volume/day, 1944 kcal, 972 mL water, and 122 g protein. 2. IF sepsis resolves; consider TF using Nepro 1.8 with 52ml/hr goal 3. Additional water flush per review engineer given CKD , on HD 4. Prealbumin q Monday/; Daily scaled weights 5. Consider routine Phos binder per MD discretion on HD; Routine serum Phos and Mg labs 6. Routine bowel care 7. Advance to regular diet as medically indicated per FOOTWEAR SALES REPRESENTATIVE/MD; consider renal restriction only IF PO intake adequate Addendum: 06/15/21 at [address]5 by [address] Lebron Intern RD Amended: Links added. Addendum: 06/15/21 at [address] I have reviewed and agree with note by Patients Transporter. DEB Smith
[2021-06-15] MEDS: insulin regular, human U-100 3ml vial - multi-dose SQ SCH ×2 (10:21→21:08)
[2021-06-15 10:57] LABS: BASOPHILS % (AUTO) 0.5 % (0-1); EOSINOPHILS % (AUTO) 0.1 % (0-6); HEMATOCRIT 29.5 % (42.0-52.0); HEMOGLOBIN 9.6 g/dl (14.0-17.9); LYMPHOCYTES # (AUTO) 0.4 X10'3 (1.1-4.8); LYMPHOCYTES % (AUTO) 4.9 % (21-51); MEAN CORPUSCULAR HEMOGLOBIN 31.5 PG (27.0-31.0); MEAN CORPUSCULAR HGB CONC 32.5 g/dL (33.0-36.5); MEAN CORPUSCULAR VOLUME 96.8 FL (78-98); MEAN PLATELET VOLUME 8.4 FL (7.4-10.4); MONOCYTES # (AUTO) 0.5 X10'3 (0-0.9); MONOCYTES % (AUTO) 5.5 % (2-12); NEUTROPHILS # (AUTO) 7.5 X10'3 (1.8-7.7); PLATELET COUNT 181 X10'3 (140-440); RED BLOOD COUNT 3.05 X10'6 (4.70-6.10); RED CELL DISTRIBUTION WIDTH 19.8 % (11.5-14.5); WHITE BLOOD COUNT 8.5 X10'3 (4.5-11.0)
--- NOTE | 2021-06-15 11:34 | NUR ---
Student documentation: I have reviewed and agree with all interventions, assessments performed and documented by Mimi, manager nursing home.
--- NOTE | 2021-06-15 11:34 | NUR ---
Student Medication Administration: For this medication-pass time frame, all medication were reviewed, dispensed, administered and documented per hospital policy by Mimi nursing agency manager.
--- NOTE | 2021-06-15 14:00 | NUR ---
BP meds held for HD
[2021-06-15] MEDS: HYDROcodone/acetaminophen 5mg/325mg tablet PO PRN (14:08)
--- NOTE | 2021-06-15 16:00 | NUR ---
New IV access has been established after great effort by several staff members. Due to Mr Day removing it unintentionally
--- NOTE | 2021-06-15 16:55 | NUR ---
New IV access established
--- NOTE | 2021-06-15 17:00 | NUR ---
Mr Day has been assessed as indicated. His restless behavior has increased greatly this shift. Staff has had to reamin at the bedside for safety puposes. He unceasingly strikes legs on siderails and toses legs over the side of the bee Addendum: 06/15/21 at 1920 by uLpe Davidson RN bed. Secretions continue to be poorly managed. His disposition remains pleasant. He was dialyzed this shift TF is well tolerated. blood sugars have been managed with appropriate insulin. He presently has a staff member at the bedside
--- NOTE | 2021-06-15 17:03 | NUR ---
3017-B Day Client so restless staff at bedside to keep him safe. May we have anti anxiety meds or 1:1 sitter order Nurse Awilda [phone]. Client very restless continues to kick legs. Has to be protected from striking them on the side rails. he presently has a staff member at the bedside
[2021-06-15] MEDS: dextrose 50%-water 50ml dispensing syringe IV PRN (17:20)
--- NOTE | 2021-06-15 18:15 | NUR ---
Problems reprioritized. Patient report given, questions answered & plan of care reviewed with ROSANGELA.
--- NOTE | 2021-06-15 18:23 | NUR ---
Patient in room PCU 3017. I have received report from DARION Kaiser and had the opportunity to ask questions and assume patient care.Awilda
--- NOTE | 2021-06-15 18:24 | NUR ---
Sitter at bedside.
[2021-06-15] MEDS: gabapentin 300mg capsule PEG SCH (20:29)
[2021-06-15] MEDS: insulin glargine (Lantus) pen - multi-dose SQ SCH (20:36)
[2021-06-16] MEDS: heparin, porcine 5000 units/ml vial SQ SCH ×3 (01:44→15:55)
[2021-06-16] MEDS: metoprolol tartrate 50mg tablet PEG SCH ×4 (01:45→19:27)
[2021-06-16 02:00] VITALS: BP 133/58
[2021-06-16] MEDS: hyDRALAzine 10mg tablet PEG SCH ×4 (02:20→19:28)
[2021-06-16] MEDS: HYDROcodone/acetaminophen 5mg/325mg tablet PO PRN ×2 (02:25→09:19)
[2021-06-16] MEDS: insulin regular, human U-100 3ml vial - multi-dose SQ SCH ×3 (02:48→20:38)
[2021-06-16 06:00] VITALS: BP 133/58
--- NOTE | 2021-06-16 06:20 | NUR ---
Problems reprioritized. Patient report given, questions answered & plan of care reviewed with DARION Kaiser. Delvin remains at bedside.
[2021-06-16] MEDS: sodium chloride 3% for inhalation 4ml nebule IH SCH ×2 (07:00→18:52)
[2021-06-16] MEDS: albuterol 2.5 MG/3 ML nebule NEB SCH ×4 (08:03→18:51)
[2021-06-16] MEDS: MULTIVIT-MIN/FERROUS GLUCONATE 9 MG/15 ML LIQUID PEG SCH (09:05)
[2021-06-16] MEDS: methylPREDNISolone sod succ/PF 40mg inj. IV SCH (09:05)
[2021-06-16] MEDS: pantoprazole 40MG/NS 100ML BAG 100 ML IV SCH (09:06)
[2021-06-16] MEDS: QUEtiapine 25mg tablet PEG SCH ×2 (09:06→20:25)
[2021-06-16] MEDS: calcium carbonate/vitamin D3 tablet PEG SCH (09:06)
[2021-06-16] MEDS: losartan 50mg tablet PEG SCH (09:06)
[2021-06-16] MEDS: aspirin 81mg tab.chew PEG SCH (09:07)
[2021-06-16] MEDS: allopurinol 100mg tablet PEG SCH (09:09)
[2021-06-16] MEDS: LIDOcaine 5% patch TP SCH (09:09)
[2021-06-16 11:00] VITALS: BP 165/46
[2021-06-16 12:15] LABS: HBSAG SCREEN Negative (Negative)
[2021-06-16] MEDS: ondansetron/PF 4mg/2ml inj IV PRN (12:20)
[2021-06-16 13:17] LABS: BASOPHILS % (AUTO) 0.3 % (0-1); EOSINOPHILS % (AUTO) 0.1 % (0-6); HEMATOCRIT 34.2 % (42.0-52.0); HEMOGLOBIN 11.1 g/dl (14.0-17.9); LYMPHOCYTES # (AUTO) 0.2 X10'3 (1.1-4.8); LYMPHOCYTES % (AUTO) 2.5 % (21-51); MEAN CORPUSCULAR HEMOGLOBIN 30.9 PG (27.0-31.0); MEAN CORPUSCULAR HGB CONC 32.4 g/dL (33.0-36.5); MEAN CORPUSCULAR VOLUME 95.2 FL (78-98); MEAN PLATELET VOLUME 8.5 FL (7.4-10.4); MONOCYTES # (AUTO) 0.2 X10'3 (0-0.9); NEUTROPHILS % (AUTO) 95.1 % (42-75); PLATELET COUNT 193 X10'3 (140-440); RED CELL DISTRIBUTION WIDTH 20.6 % (11.5-14.5); WHITE BLOOD COUNT 8.5 X10'3 (4.5-11.0)
[2021-06-16 13:52] LABS: ANISOCYTOSIS 3+; MICROCYTOSIS FEW; PLATELET ESTIMATE NORMAL; SCHISTOCYTES FEW
[2021-06-16 13:53] LABS: ELLIPTOCYTES FEW
[2021-06-16 13:55] LABS: ALANINE AMINOTRANSFERASE 43 U/L (12-78); ALBUMIN 2.3 G/DL (3.4-5.0); ALBUMIN/GLOBULIN RATIO 0.6 (1.1-1.5); ALKALINE PHOSPHATASE 190 IU/L (46-116); ASPARTATE AMINO TRANSFERASE 30 U/L (10-37); BILIRUBIN,TOTAL 0.6 MG/DL (0.1-1.0); BLOOD UREA NITROGEN 72 MG/DL (7-18); BUN/CREATININE RATIO 25.3 (5.4-32.0); CALCIUM 8.2 MG/DL (8.5-10.1); CHLORIDE 98 MMOL/L (99-107); CREATININE 2.85 MG/DL (0.60-1.10); GLUCOSE 258 MG/DL (70-104); POTASSIUM 5.9 MMOL/L (3.5-5.1); SODIUM 138 MMOL/L (135-145); TOTAL PROTEIN 6.4 G/DL (6.4-8.2); eGFR 22 ML/MIN
[2021-06-16 14:24] LABS: ANION GAP 13 (8-16); TOTAL CARBON DIOXIDE 27.5 MMOL/L (24-32)
[2021-06-16 15:00] VITALS: BP 174/71
[2021-06-16 18:00] VITALS: BP 174/81
--- NOTE | 2021-06-16 18:00 | NUR ---
Mr Day has been assessed as indicated. He has been visited by his sister today. She states that she will visit everyday forthe next 4 days. He has been very restless the entire shift. He repeatedly throws his legs over and between the side rails. There is a staff member at the bedside at all times. He tolerated TF well rectal tube remains in place IV access remains in place.
--- NOTE | 2021-06-16 18:15 | NUR ---
Problems reprioritized. Patient report given, questions answered & plan of care reviewed with Loly.
[2021-06-16] MEDS: gabapentin 300mg capsule PEG SCH (20:26)
[2021-06-16] MEDS: insulin glargine (Lantus) pen - multi-dose SQ SCH (20:31)
[2021-06-16] MEDS: temazepam 15mg capsule PEG PRN (20:53)
[2021-06-16 22:00] VITALS: BP 103/52
[2021-06-17] MEDS: heparin, porcine 5000 units/ml vial SQ SCH ×3 (01:00→16:52)
[2021-06-17] MEDS: hyDRALAzine 10mg tablet PEG SCH ×4 (01:59→21:00)
[2021-06-17 02:00] VITALS: BP 118/60
[2021-06-17] MEDS: metoprolol tartrate 50mg tablet PEG SCH ×4 (02:00→21:00)
[2021-06-17] MEDS: dextrose 50%-water 50ml dispensing syringe IV PRN ×2 (02:17→03:55)
[2021-06-17] MEDS: HYDROcodone/acetaminophen 5mg/325mg tablet PO PRN ×2 (04:58→20:58)
[2021-06-17 06:00] VITALS: BP 126/55
[2021-06-17] MEDS: sodium chloride 3% for inhalation 4ml nebule IH SCH ×3 (07:11→19:02)
[2021-06-17] MEDS: albuterol 2.5 MG/3 ML nebule NEB SCH ×4 (07:12→19:03)
[2021-06-17] MEDS ORDERED: heparin 1,000unit/ml 10ml vial 10 ML IV ONE (08:00)
[2021-06-17] MEDS: losartan 50mg tablet PEG SCH (08:00)
[2021-06-17] MEDS ORDERED: heparin 1,000 units/ml 10ml inj HE ONE ×2 (08:00)
[2021-06-17] MEDS ORDERED: normal saline 1000ml 250 ML IV PRN (08:00)
[2021-06-17] MEDS: pantoprazole 40MG/NS 100ML BAG 100 ML IV SCH (08:47)
[2021-06-17] MEDS: LIDOcaine 5% patch TP SCH (08:47)
[2021-06-17] MEDS: methylPREDNISolone sod succ/PF 40mg inj. IV SCH (08:50)
[2021-06-17] MEDS: QUEtiapine 25mg tablet PEG SCH ×2 (08:50→20:58)
[2021-06-17] MEDS: calcium carbonate/vitamin D3 tablet PEG SCH (08:50)
[2021-06-17] MEDS: aspirin 81mg tab.chew PEG SCH (08:51)
[2021-06-17] MEDS: MULTIVIT-MIN/FERROUS GLUCONATE 9 MG/15 ML LIQUID PEG SCH (08:51)
[2021-06-17 10:21] LABS: HEMOGLOBIN 8.8 g/dl (14.0-17.9); LYMPHOCYTES # (AUTO) 0.5 X10'3 (1.1-4.8); MEAN CORPUSCULAR HEMOGLOBIN 31.2 PG (27.0-31.0); MEAN CORPUSCULAR HGB CONC 32.9 g/dL (33.0-36.5); NEUTROPHILS # (AUTO) 4.7 X10'3 (1.8-7.7); WHITE BLOOD COUNT 5.5 X10'3 (4.5-11.0)
[2021-06-17 10:23] LABS: BASOPHILS % (AUTO) 0.7 % (0-1); EOSINOPHILS % (AUTO) 0.6 % (0-6); HEMATOCRIT 26.6 % (42.0-52.0); LYMPHOCYTES % (AUTO) 8.9 % (21-51); MEAN CORPUSCULAR VOLUME 94.8 FL (78-98); MONOCYTES # (AUTO) 0.2 X10'3 (0-0.9); MONOCYTES % (AUTO) 4.5 % (2-12); NEUTROPHILS % (AUTO) 85.3 % (42-75); PLATELET COUNT 171 X10'3 (140-440); RED BLOOD COUNT 2.81 X10'6 (4.70-6.10); RED CELL DISTRIBUTION WIDTH 20.1 % (11.5-14.5)
[2021-06-17 10:45] LABS: ALANINE AMINOTRANSFERASE 29 U/L (12-78); ALBUMIN/GLOBULIN RATIO 0.6 (1.1-1.5); ALKALINE PHOSPHATASE 141 IU/L (46-116); ANION GAP 6 (8-16); ASPARTATE AMINO TRANSFERASE 22 U/L (10-37); BILIRUBIN,TOTAL 0.4 MG/DL (0.1-1.0); BLOOD UREA NITROGEN 94 MG/DL (7-18); BUN/CREATININE RATIO 29.1 (5.4-32.0); CALCIUM 7.5 MG/DL (8.5-10.1); CHLORIDE 101 MMOL/L (99-107); CREATININE 3.23 MG/DL (0.60-1.10); GLUCOSE 195 MG/DL (70-104); POTASSIUM 5.5 MMOL/L (3.5-5.1); SODIUM 137 MMOL/L (135-145); TOTAL CARBON DIOXIDE 30.2 MMOL/L (24-32); TOTAL PROTEIN 5.3 G/DL (6.4-8.2); eGFR 19 ML/MIN
[2021-06-17 11:00] VITALS: BP 126/63
[2021-06-17 15:00] VITALS: BP 108/59
[2021-06-17 18:00] VITALS: BP 136/73
[2021-06-17] MEDS: gabapentin 300mg capsule PEG SCH (21:00)
[2021-06-17] MEDS: temazepam 15mg capsule PEG PRN (21:00)
[2021-06-17] MEDS: insulin glargine (Lantus) pen - multi-dose SQ SCH (21:06)
[2021-06-17 22:00] VITALS: BP 133/54
[2021-06-18] MEDS: heparin, porcine 5000 units/ml vial SQ SCH ×3 (00:16→15:33)
[2021-06-18] MEDS: hyDRALAzine 10mg tablet PEG SCH ×4 (02:16→21:48)
[2021-06-18] MEDS: metoprolol tartrate 50mg tablet PEG SCH ×4 (02:16→21:48)
[2021-06-18] MEDS: insulin regular, human U-100 3ml vial - multi-dose SQ SCH ×3 (02:20→15:16)
[2021-06-18 06:00] VITALS: BP 128/79
[2021-06-18] MEDS: sodium chloride 3% for inhalation 4ml nebule IH SCH ×4 (06:57→20:31)
[2021-06-18] MEDS: albuterol 2.5 MG/3 ML nebule NEB SCH ×4 (06:57→20:31)
[2021-06-18 07:25] LABS: BASOPHILS % (AUTO) 0.5 % (0-1); EOSINOPHILS % (AUTO) 0.5 % (0-6); LYMPHOCYTES # (AUTO) 0.5 X10'3 (1.1-4.8); LYMPHOCYTES % (AUTO) 6.2 % (21-51); MEAN CORPUSCULAR HEMOGLOBIN 31.8 PG (27.0-31.0); MEAN CORPUSCULAR HGB CONC 33.3 g/dL (33.0-36.5); MEAN CORPUSCULAR VOLUME 95.5 FL (78-98); MEAN PLATELET VOLUME 7.7 FL (7.4-10.4); MONOCYTES # (AUTO) 0.9 X10'3 (0-0.9); MONOCYTES % (AUTO) 10.2 % (2-12); NEUTROPHILS # (AUTO) 7.2 X10'3 (1.8-7.7); NEUTROPHILS % (AUTO) 82.6 % (42-75); PLATELET COUNT 200 X10'3 (140-440); RED BLOOD COUNT 2.83 X10'6 (4.70-6.10); RED CELL DISTRIBUTION WIDTH 19.8 % (11.5-14.5); WHITE BLOOD COUNT 8.8 X10'3 (4.5-11.0)
[2021-06-18 07:44] LABS: ALANINE AMINOTRANSFERASE 38 U/L (12-78); ALBUMIN 2.1 G/DL (3.4-5.0); ALBUMIN/GLOBULIN RATIO 0.6 (1.1-1.5); ALKALINE PHOSPHATASE 155 IU/L (46-116); ANION GAP 11 (8-16); ASPARTATE AMINO TRANSFERASE 26 U/L (10-37); BILIRUBIN,TOTAL 0.4 MG/DL (0.1-1.0); BLOOD UREA NITROGEN 53 MG/DL (7-18); BUN/CREATININE RATIO 23.9 (5.4-32.0); CHLORIDE 104 MMOL/L (99-107); CREATININE 2.22 MG/DL (0.60-1.10); GLUCOSE 64 MG/DL (70-104); POTASSIUM 4.6 MMOL/L (3.5-5.1); SODIUM 144 MMOL/L (135-145); TOTAL PROTEIN 5.7 G/DL (6.4-8.2); eGFR 29 ML/MIN
[2021-06-18] MEDS: methylPREDNISolone sod succ/PF 40mg inj. IV SCH (08:00)
[2021-06-18] MEDS: calcium carbonate/vitamin D3 tablet PEG SCH (08:00)
[2021-06-18 08:54] LABS: ANISOCYTOSIS 2+; PLATELET ESTIMATE NORMAL
[2021-06-18 08:55] LABS: POIKILOCYTOSIS FEW
[2021-06-18] MEDS: pantoprazole 40MG/NS 100ML BAG 100 ML IV SCH (09:05)
[2021-06-18] MEDS: losartan 50mg tablet PEG SCH (09:07)
[2021-06-18] MEDS: MULTIVIT-MIN/FERROUS GLUCONATE 9 MG/15 ML LIQUID PEG SCH (09:11)
[2021-06-18] MEDS: aspirin 81mg tab.chew PEG SCH (09:11)
[2021-06-18] MEDS: allopurinol 100mg tablet PEG SCH (09:16)
[2021-06-18] MEDS: QUEtiapine 25mg tablet PEG SCH ×2 (09:17→21:48)
[2021-06-18] MEDS: LIDOcaine 5% patch TP SCH ×2 (09:18→21:49)
--- NOTE | 2021-06-18 10:00 | NUR ---
Reassessment: Pt continues w/ PEG tube and tolerating TF at goal w/ GRV WNL per EMR. Pt had dialysis 06/17 w/ 1L output per I&O and will have HD again tomorrow per physician note. Pt continues to have significant BG ranges w/ 50-474 mg/dl, though pt is on glycemic protocol and no changes to TF rate. LBM 06/16 documented w/ diarrhea and 350 ml stool output w/ rectal tube per coal cager. Pt sepsis has resolved per physician documentation; TF changes below. If pt w/ significant diarrhea following formula change will adjust TF as appropriate. Will continue to follow for adjustment needs. Recommendations: 1. Continuous TF using Nepro 1.8 with 52ml/hr goal to provide 1248 mL volume/day, 2,246 kcal, 907 mL water, and 101 g protein. 2. Additional water flush per metal sorter given CKD, on HD 3. Prealbumin q Monday/; Daily scaled weights 4. Consider routine Phos binder per MD discretion on HD; Routine serum Phos and Mg labs 5. Bowel care per rx 7. Advance to regular diet as medically indicated per WEIGH BOSS/MD; consider renal restriction only IF PO intake adequate Addendum: 06/18/21 at [address] Amended: Links added. Addendum: 06/18/21 at [address] I have reviewed and agree with note by Cloud Consultant. DEB Smith EMR updated with new TF formula and goal rate. TC to RN to inform of TF adjustments. RN states a new bottle of Pivot was started this morning, d/w RN recommendation to start new formula once current bottle is empty. Per RN pt continues with a rectal tube in place though not having diarrhea. Will continue to follow closely and make recommendations as appropriate.
[2021-06-18 11:00] VITALS: BP_SYST 139
--- NOTE | 2021-06-18 14:49 | NUR ---
PRESSURE ULCER EDUCATION: DEFINITION: A pressure ulcer is an area of skin that breaks down when you stay in one position too long. The constant pressure against the skin reduces the blood flow to that area and the affected tissue dies. CAUSES: "Being bedridden or in a wheelchair "Fragile skin "Having a chronic condition, such as diabetes or vascular disease "Inability to move certain parts of your body without assistance "Older age "Incontinence of urine or stool SYMPTOMS: "A reddened area that DOES NOT turn white when pressed on - this can be the beginning of a pressure ulcer "A blister, deep sore or a crater - these can be advanced pressure ulcers FIRST AID: "Relieve the pressure on this area "Keep the area clean and dry "Call your primary doctor if you see any of the above symptoms "DO NOT massage the area "DO NOT use a donut shaped or ring shaped pillow- these actually interfere with the blood flow and cause complications PREVENTION: "Check for pressure ulcers everyday "Change position at least every two hours to relieve pressure "Use items that help relieve pressure- pillows, sheepskin, foam padding, and powders. "Keep skin clean and dry "Eat healthy well balanced meals "Exercise daily IF YOU SEE ANY OF THESE SYMPTOMS WHILE IN THE HOSPITAL - TELL YOUR NURSE IMMEDIATELY. IF YOU SEE ANY OF THESE SYMPTOMS WHILE AT HOME OR HAVE ANY QUESTIONS OR CONCERNS ABOUT PRESSURE ULCERS - CALL YOUR PRIMARY DOCTOR IMMEDIATELY. Addendum: 06/18/21 at 1449 by Francine Miles RN Amended: Links added.
[2021-06-18 15:00] VITALS: BP 109/56
[2021-06-18 18:00] VITALS: BP 138/69
--- NOTE | 2021-06-18 18:58 | NUR ---
Spoke with the Polysomnography Technician was informed to complete tube feeding-Pivot 1.5 @54ml container presently infusing then change formula to Nepro formula at @52cc/hr.Awaiting orders for formula change from .
[2021-06-18] MEDS: insulin glargine (Lantus) pen - multi-dose SQ SCH (21:00)
[2021-06-18] MEDS: temazepam 15mg capsule PEG PRN (21:46)
[2021-06-18] MEDS: gabapentin 300mg capsule PEG SCH (21:47)
[2021-06-18 22:00] VITALS: BP 161/62
[2021-06-19] MEDS: hyDRALAzine 10mg tablet PEG SCH ×4 (01:34→20:56)
[2021-06-19] MEDS: metoprolol tartrate 50mg tablet PEG SCH ×4 (01:34→20:54)
[2021-06-19] MEDS: insulin regular, human U-100 3ml vial - multi-dose SQ SCH ×4 (01:49→14:52)
[2021-06-19 02:00] VITALS: BP 98/45
--- NOTE | 2021-06-19 07:12 | NUR ---
Patient in room PCU 3017. I have received report from DARION Adames and had the opportunity to ask questions and assume patient care.
[2021-06-19 07:14] VITALS: BP 148/59
[2021-06-19] MEDS: sodium chloride 3% for inhalation 4ml nebule IH SCH ×4 (07:30→19:44)
[2021-06-19] MEDS: albuterol 2.5 MG/3 ML nebule NEB SCH ×4 (07:32→19:44)
[2021-06-19 07:38] LABS: BASOPHILS % (AUTO) 0.7 % (0-1); EOSINOPHILS % (AUTO) 0.2 % (0-6); HEMATOCRIT 28.7 % (42.0-52.0); LYMPHOCYTES # (AUTO) 0.5 X10'3 (1.1-4.8); LYMPHOCYTES % (AUTO) 6.6 % (21-51); MEAN CORPUSCULAR HEMOGLOBIN 31.2 PG (27.0-31.0); MEAN CORPUSCULAR HGB CONC 31.4 g/dL (33.0-36.5); MEAN CORPUSCULAR VOLUME 99.4 FL (78-98); MEAN PLATELET VOLUME 8.1 FL (7.4-10.4); MONOCYTES # (AUTO) 0.4 X10'3 (0-0.9); MONOCYTES % (AUTO) 5.9 % (2-12); NEUTROPHILS # (AUTO) 6.4 X10'3 (1.8-7.7); NEUTROPHILS % (AUTO) 86.6 % (42-75); PLATELET COUNT 200 X10'3 (140-440); RED BLOOD COUNT 2.89 X10'6 (4.70-6.10); WHITE BLOOD COUNT 7.3 X10'3 (4.5-11.0)
[2021-06-19 07:39] LABS: ALANINE AMINOTRANSFERASE 33 U/L (12-78); ALBUMIN 2.1 G/DL (3.4-5.0); ALBUMIN/GLOBULIN RATIO 0.6 (1.1-1.5); ALKALINE PHOSPHATASE 162 IU/L (46-116); ANION GAP 14 (8-16); ASPARTATE AMINO TRANSFERASE 24 U/L (10-37); BILIRUBIN,TOTAL 0.3 MG/DL (0.1-1.0); BLOOD UREA NITROGEN 94 MG/DL (7-18); BUN/CREATININE RATIO 27.2 (5.4-32.0); CHLORIDE 101 MMOL/L (99-107); CREATININE 3.46 MG/DL (0.60-1.10); GLUCOSE 355 MG/DL (70-104); POTASSIUM 5.8 MMOL/L (3.5-5.1); SODIUM 140 MMOL/L (135-145); TOTAL CARBON DIOXIDE 25.1 MMOL/L (24-32); TOTAL PROTEIN 5.8 G/DL (6.4-8.2); eGFR 17 ML/MIN
[2021-06-19] MEDS ORDERED: EPOETIN ALFA-EPBX 20,000 UNIT/ML 1 ML MDV IV ONE (08:00)
[2021-06-19] MEDS ORDERED: heparin 1,000 units/ml 10ml inj HE ONE ×2 (08:00)
[2021-06-19] MEDS ORDERED: heparin 1,000unit/ml 10ml vial 10 ML IV ONE (08:00)
[2021-06-19] MEDS ORDERED: normal saline 1000ml 250 ML IV PRN (08:00)
[2021-06-19] MEDS: losartan 50mg tablet PEG SCH (08:30)
[2021-06-19] MEDS: aspirin 81mg tab.chew PEG SCH (08:30)
[2021-06-19] MEDS: MULTIVIT-MIN/FERROUS GLUCONATE 9 MG/15 ML LIQUID PEG SCH (08:30)
[2021-06-19] MEDS: QUEtiapine 25mg tablet PEG SCH ×2 (08:30→20:55)
[2021-06-19] MEDS: LIDOcaine 5% patch TP SCH (08:31)
[2021-06-19] MEDS: calcium carbonate/vitamin D3 tablet PEG SCH (08:31)
[2021-06-19] MEDS: methylPREDNISolone sod succ/PF 40mg inj. IV SCH (08:31)
[2021-06-19] MEDS: heparin, porcine 5000 units/ml vial SQ SCH ×4 (08:31→23:36)
[2021-06-19 09:02] LABS: ANISOCYTOSIS 2+; ELLIPTOCYTES FEW; HYPOCHROMASIA 1+; PLATELET ESTIMATE NORMAL; TEAR DROP CELLS 1+
[2021-06-19 09:03] LABS: ACANTHOCYTES FEW; BURR CELLS FEW
[2021-06-19] MEDS: pantoprazole 40MG/NS 100ML BAG 100 ML IV SCH (09:58)
[2021-06-19 12:00] VITALS: BP 145/60
[2021-06-19 15:38] VITALS: BP 132/91
[2021-06-19] MEDS ORDERED: traZODone 150mg tablet PEG PRN (17:50)
--- NOTE | 2021-06-19 18:22 | NUR ---
Problems reprioritized. Patient report given, questions answered & plan of care reviewed with DARION Nicole.
--- NOTE | 2021-06-19 18:22 | NUR ---
Patient in room PCU 3017. I have received report from DARION Escobar and had the opportunity to ask questions and assume patient care.
[2021-06-19 19:00] VITALS: BP 144/51
[2021-06-19] MEDS: gabapentin 300mg capsule PEG SCH (20:55)
[2021-06-19] MEDS: insulin glargine (Lantus) pen - multi-dose SQ SCH (21:01)
[2021-06-19 23:00] VITALS: BP 198/59
[2021-06-20] MEDS: metoprolol tartrate 50mg tablet PEG SCH ×4 (01:08→20:40)
[2021-06-20] MEDS: hyDRALAzine 10mg tablet PEG SCH ×4 (01:09→20:41)
[2021-06-20] MEDS: insulin regular, human U-100 3ml vial - multi-dose SQ SCH ×3 (02:43→20:31)
[2021-06-20 03:00] VITALS: BP 179/64
[2021-06-20 06:00] VITALS: BP 113/74
--- NOTE | 2021-06-20 06:51 | NUR ---
Problems reprioritized. Patient report given, questions answered & plan of care reviewed with DARION Carter.
[2021-06-20 07:38] LABS: BASOPHILS # (AUTO) 0.1 X10'3 (0-0.2); BASOPHILS % (AUTO) 0.6 % (0-1); EOSINOPHILS % (AUTO) 0.3 % (0-6); HEMATOCRIT 31.4 % (42.0-52.0); HEMOGLOBIN 10.5 g/dl (14.0-17.9); LYMPHOCYTES # (AUTO) 0.9 X10'3 (1.1-4.8); LYMPHOCYTES % (AUTO) 6.8 % (21-51); MEAN CORPUSCULAR HEMOGLOBIN 31.7 PG (27.0-31.0); MEAN CORPUSCULAR HGB CONC 33.3 g/dL (33.0-36.5); MEAN CORPUSCULAR VOLUME 95.4 FL (78-98); MEAN PLATELET VOLUME 7.9 FL (7.4-10.4); MONOCYTES # (AUTO) 0.9 X10'3 (0-0.9); MONOCYTES % (AUTO) 6.8 % (2-12); NEUTROPHILS % (AUTO) 85.5 % (42-75); PLATELET COUNT 279 X10'3 (140-440); RED BLOOD COUNT 3.29 X10'6 (4.70-6.10); RED CELL DISTRIBUTION WIDTH 19.4 % (11.5-14.5); WHITE BLOOD COUNT 12.9 X10'3 (4.5-11.0)
[2021-06-20] MEDS: albuterol 2.5 MG/3 ML nebule NEB SCH ×4 (07:48→20:03)
[2021-06-20] MEDS: sodium chloride 3% for inhalation 4ml nebule IH SCH ×3 (07:48→20:08)
--- NOTE | 2021-06-20 07:50 | NUR ---
notified primary RN of critical BG 44
[2021-06-20 08:18] LABS: ALANINE AMINOTRANSFERASE 46 U/L (12-78); ALBUMIN 2.6 G/DL (3.4-5.0); ALBUMIN/GLOBULIN RATIO 0.6 (1.1-1.5); ALKALINE PHOSPHATASE 196 IU/L (46-116); ANION GAP 12 (8-16); ASPARTATE AMINO TRANSFERASE 28 U/L (10-37); BILIRUBIN,TOTAL 0.4 MG/DL (0.1-1.0); BLOOD UREA NITROGEN 46 MG/DL (7-18); BUN/CREATININE RATIO 21.9 (5.4-32.0); CALCIUM 8.5 MG/DL (8.5-10.1); CHLORIDE 100 MMOL/L (99-107); POTASSIUM 4.1 MMOL/L (3.5-5.1); SODIUM 141 MMOL/L (135-145); TOTAL CARBON DIOXIDE 29.2 MMOL/L (24-32); TOTAL PROTEIN 6.7 G/DL (6.4-8.2); eGFR 31 ML/MIN
[2021-06-20 08:29] LABS: GLUCOSE 30 MG/DL (70-104)
--- NOTE | 2021-06-20 08:32 | NUR ---
CRITICAL LAB VALUE TAKEN FROM LAB REPORTED TO PRIMARY RN.
[2021-06-20] MEDS: amLODIPine 5mg tablet PEG SCH (09:20)
[2021-06-20] MEDS: QUEtiapine 25mg tablet PEG SCH ×2 (09:20→20:39)
[2021-06-20] MEDS: allopurinol 100mg tablet PEG SCH (09:20)
[2021-06-20] MEDS: aspirin 81mg tab.chew PEG SCH (09:20)
[2021-06-20] MEDS: losartan 50mg tablet PEG SCH (09:21)
[2021-06-20] MEDS: calcium carbonate/vitamin D3 tablet PEG SCH (09:21)
[2021-06-20] MEDS: methylPREDNISolone sod succ/PF 40mg inj. IV SCH (09:22)
[2021-06-20] MEDS: MULTIVIT-MIN/FERROUS GLUCONATE 9 MG/15 ML LIQUID PEG SCH (09:22)
[2021-06-20] MEDS: heparin, porcine 5000 units/ml vial SQ SCH ×3 (09:23→23:40)
[2021-06-20 11:00] VITALS: BP 160/69
[2021-06-20] MEDS: pantoprazole 40MG/NS 100ML BAG 100 ML IV SCH (11:56)
--- NOTE | 2021-06-20 14:16 | NUR ---
PT Day Bi Rm 3017-B Need order to renew his restraints please. Emma/DARION PCU [id number]
--- NOTE | 2021-06-20 16:56 | NUR ---
Pt Shay Pat Rm 3017-B very agitated, tring to pull out rectal tube. Need something to calm him down. Also need order to renew restraints please. Emma/DARION PCU 3954
[2021-06-20] MEDS ORDERED: LORazepam 2 mg/ml vial IM ONE (17:10)
[2021-06-20 18:30] VITALS: BP 162/72
[2021-06-20] MEDS: gabapentin 300mg capsule PEG SCH (20:39)
[2021-06-20] MEDS: insulin glargine (Lantus) pen - multi-dose SQ SCH (21:07)
[2021-06-20 22:00] VITALS: BP 136/66
[2021-06-21 02:00] VITALS: BP 140/81
[2021-06-21] MEDS: insulin regular, human U-100 3ml vial - multi-dose SQ SCH ×3 (02:08→21:45)
[2021-06-21] MEDS: metoprolol tartrate 50mg tablet PEG SCH ×4 (02:09→19:48)
[2021-06-21] MEDS: hyDRALAzine 10mg tablet PEG SCH ×4 (02:09→20:33)
[2021-06-21] MEDS: HYDROcodone/acetaminophen 5mg/325mg tablet PO PRN ×2 (02:13→09:55)
[2021-06-21 06:00] VITALS: BP 138/76
[2021-06-21 06:27] LABS: BASOPHILS # (AUTO) 0.1 X10'3 (0-0.2); BASOPHILS % (AUTO) 1.2 % (0-1); EOSINOPHILS # (AUTO) 0.1 X10'3 (0-0.9); EOSINOPHILS % (AUTO) 0.7 % (0-6); HEMATOCRIT 28.5 % (42.0-52.0); HEMOGLOBIN 9.6 g/dl (14.0-17.9); LYMPHOCYTES # (AUTO) 0.8 X10'3 (1.1-4.8); LYMPHOCYTES % (AUTO) 7.4 % (21-51); MEAN CORPUSCULAR HEMOGLOBIN 31.9 PG (27.0-31.0); MEAN CORPUSCULAR HGB CONC 33.6 g/dL (33.0-36.5); MEAN CORPUSCULAR VOLUME 95.1 FL (78-98); MEAN PLATELET VOLUME 7.7 FL (7.4-10.4); MONOCYTES # (AUTO) 0.6 X10'3 (0-0.9); MONOCYTES % (AUTO) 4.9 % (2-12); NEUTROPHILS # (AUTO) 9.9 X10'3 (1.8-7.7); NEUTROPHILS % (AUTO) 85.8 % (42-75); PLATELET COUNT 243 X10'3 (140-440); RED CELL DISTRIBUTION WIDTH 19.2 % (11.5-14.5); WHITE BLOOD COUNT 11.5 X10'3 (4.5-11.0)
[2021-06-21 07:06] LABS: ALANINE AMINOTRANSFERASE 42 U/L (12-78); ALBUMIN 2.3 G/DL (3.4-5.0); ALBUMIN/GLOBULIN RATIO 0.6 (1.1-1.5); ALKALINE PHOSPHATASE 202 IU/L (46-116); ANION GAP 12 (8-16); ASPARTATE AMINO TRANSFERASE 25 U/L (10-37); BILIRUBIN,TOTAL 0.4 MG/DL (0.1-1.0); BLOOD UREA NITROGEN 67 MG/DL (7-18); BUN/CREATININE RATIO 21.8 (5.4-32.0); CALCIUM 8.2 MG/DL (8.5-10.1); CHLORIDE 96 MMOL/L (99-107); CREATININE 3.07 MG/DL (0.60-1.10); GLUCOSE 115 MG/DL (70-104); POTASSIUM 4.9 MMOL/L (3.5-5.1); SODIUM 135 MMOL/L (135-145); TOTAL CARBON DIOXIDE 26.7 MMOL/L (24-32); TOTAL PROTEIN 5.9 G/DL (6.4-8.2); eGFR 20 ML/MIN
[2021-06-21] MEDS: albuterol 2.5 MG/3 ML nebule NEB SCH ×4 (07:19→20:04)
[2021-06-21] MEDS: sodium chloride 3% for inhalation 4ml nebule IH SCH ×2 (07:19→11:03)
[2021-06-21] MEDS: pantoprazole 40MG/NS 100ML BAG 100 ML IV SCH (08:13)
[2021-06-21] MEDS: LIDOcaine 5% patch TP SCH (08:14)
[2021-06-21] MEDS: MULTIVIT-MIN/FERROUS GLUCONATE 9 MG/15 ML LIQUID PEG SCH (08:15)
[2021-06-21] MEDS: heparin, porcine 5000 units/ml vial SQ SCH ×2 (08:15→16:00)
[2021-06-21] MEDS: methylPREDNISolone sod succ/PF 40mg inj. IV SCH (08:15)
[2021-06-21] MEDS: losartan 50mg tablet PEG SCH (08:16)
[2021-06-21] MEDS: aspirin 81mg tab.chew PEG SCH (08:16)
[2021-06-21] MEDS: amLODIPine 5mg tablet PEG SCH (08:16)
[2021-06-21] MEDS: calcium carbonate/vitamin D3 tablet PEG SCH (08:16)
[2021-06-21] MEDS: QUEtiapine 25mg tablet PEG SCH ×2 (08:17→19:49)
--- NOTE | 2021-06-21 09:34 | NUR ---
Reassessment: Pt continues w/ PEG tube and tolerating TF adjustment at goal w/ GRV WNL per EMR. Pt TF is currently running at 54 ml/hr as seen in pt room and per documentation, though per diet order TF rate should be 52 ml/hr. [employer] compliance internship left message w/ RN to change TF rate to 52 ml/hr. Pt seen today by DIRECTOR CARDIOVASCULAR 06/21 and recommends pureed diet and NTL, pending PO trends in EMR. Pt had dialysis 06/19 w/ 1L output put per I&O and will have HD again tomorrow 06/22 per physician note. Pt continues to have significant BG ranges w/ 30-355 mg/dl, though pt is on glycemic protocol. LBM 06/20, pt continues to have diarrhea per recruitment specialist and 200 ml stool output w/ rectal tube. Will continue to follow for TF tolerance and make adjustments as needed. Recommendations: 1.Continuous TF using Nepro 1.8 with 52ml/hr goal to provide 1248 mL volume/day, 2,246 kcal, 907 mL water, and 101 g protein. 2. Additional water flush per ski maker wood given CKD, on HD 3. Continue Puree/NTL/Renal diet per DIRECTOR CARDIOVASCULAR and MD; encourage PO 4. Prealbumin q Monday/; Daily scaled weights 5. Consider routine Phos binder per MD discretion on HD; Routine serum Phos and Mg labs 6. Bowel care per rx 7. Continue w/ TF until pt can meet 65% of estimated nutrient needs from PO diet Addendum: 06/21/21 at 0934 by [address] Le[address] Intern RD Amended: Links added. Addendum: 06/21/21 at [address] I have reviewed assessment by record label intern
[2021-06-21] MEDS: LORazepam 0.5 MG tablet PEG PRN (09:55)
[2021-06-21 11:00] VITALS: BP 142/79
[2021-06-21 15:00] VITALS: BP 137/74
[2021-06-21 18:00] VITALS: BP 165/73
--- NOTE | 2021-06-21 18:30 | NUR ---
Pt in bed awake and alert dangling his leg: sitter at bedside. Peg feeding infusing well at 52 ml /hr. Rectal tube in place.
[2021-06-21] MEDS: LORazepam 2 mg/ml vial IV PRN (19:44)
[2021-06-21] MEDS: gabapentin 300mg capsule PEG SCH (20:25)
[2021-06-21] MEDS ORDERED: OLANZapine 2.5MG tablet PO SCH (21:00)
--- NOTE | 2021-06-21 21:00 | NUR ---
Rectal tube flushed as ordered. No BM in the bag noted. PM care done.
[2021-06-21] MEDS: insulin glargine (Lantus) pen - multi-dose SQ SCH (21:47)
[2021-06-21 22:00] VITALS: BP 137/55
[2021-06-22] MEDS: heparin, porcine 5000 units/ml vial SQ SCH ×3 (01:00→16:00)
[2021-06-22] MEDS: metoprolol tartrate 50mg tablet PEG SCH ×4 (01:03→20:12)
[2021-06-22] MEDS: hyDRALAzine 10mg tablet PEG SCH ×4 (01:04→20:14)
[2021-06-22 01:12] VITALS: BP 131/64
[2021-06-22 02:00] VITALS: BP 158/43
[2021-06-22] MEDS: insulin regular, human U-100 3ml vial - multi-dose SQ SCH ×3 (02:13→20:38)
[2021-06-22 05:59] LABS: ALANINE AMINOTRANSFERASE 34 U/L (12-78); ALBUMIN 2.2 G/DL (3.4-5.0); ALBUMIN/GLOBULIN RATIO 0.6 (1.1-1.5); ALKALINE PHOSPHATASE 196 IU/L (46-116); ANION GAP 14 (8-16); BILIRUBIN,TOTAL 0.4 MG/DL (0.1-1.0); BLOOD UREA NITROGEN 86 MG/DL (7-18); BUN/CREATININE RATIO 21.4 (5.4-32.0); CALCIUM 8.3 MG/DL (8.5-10.1); CHLORIDE 96 MMOL/L (99-107); CREATININE 4.01 MG/DL (0.60-1.10); GLUCOSE 145 MG/DL (70-104); SODIUM 133 MMOL/L (135-145); TOTAL CARBON DIOXIDE 23.4 MMOL/L (24-32); TOTAL PROTEIN 5.8 G/DL (6.4-8.2); eGFR 15 ML/MIN
[2021-06-22 06:00] VITALS: BP 169/65
[2021-06-22 06:13] LABS: ASPARTATE AMINO TRANSFERASE 29 U/L (10-37); POTASSIUM 5.7 MMOL/L (3.5-5.1)
[2021-06-22] MEDS: albuterol 2.5 MG/3 ML nebule NEB SCH ×4 (06:58→19:43)
[2021-06-22 07:11] LABS: BASOPHILS # (AUTO) 0.1 X10'3 (0-0.2); BASOPHILS % (AUTO) 0.5 % (0-1); EOSINOPHILS # (AUTO) 0.1 X10'3 (0-0.9); EOSINOPHILS % (AUTO) 1.1 % (0-6); HEMATOCRIT 29.7 % (42.0-52.0); HEMOGLOBIN 9.6 g/dl (14.0-17.9); LYMPHOCYTES # (AUTO) 0.4 X10'3 (1.1-4.8); LYMPHOCYTES % (AUTO) 3.2 % (21-51); MEAN CORPUSCULAR HEMOGLOBIN 30.8 PG (27.0-31.0); MEAN CORPUSCULAR HGB CONC 32.4 g/dL (33.0-36.5); MEAN CORPUSCULAR VOLUME 94.9 FL (78-98); MEAN PLATELET VOLUME 8.3 FL (7.4-10.4); MONOCYTES # (AUTO) 0.6 X10'3 (0-0.9); MONOCYTES % (AUTO) 4.5 % (2-12); NEUTROPHILS # (AUTO) 11.9 X10'3 (1.8-7.7); NEUTROPHILS % (AUTO) 90.7 % (42-75); PLATELET COUNT 264 X10'3 (140-440); RED BLOOD COUNT 3.13 X10'6 (4.70-6.10); RED CELL DISTRIBUTION WIDTH 19.9 % (11.5-14.5); WHITE BLOOD COUNT 13.1 X10'3 (4.5-11.0)
[2021-06-22] MEDS ORDERED: heparin 1,000 units/ml 10ml inj HE ONE ×2 (08:00)
[2021-06-22] MEDS: QUEtiapine 25mg tablet PEG SCH (08:00)
[2021-06-22] MEDS ORDERED: heparin 1,000unit/ml 10ml vial 10 ML IV ONE (08:00)
[2021-06-22] MEDS ORDERED: normal saline 1000ml 250 ML IV PRN (08:00)
[2021-06-22] MEDS ORDERED: EPOETIN ALFA-EPBX 20,000 UNIT/ML 1 ML MDV IV ONE (08:00)
[2021-06-22] MEDS: aspirin 81mg tab.chew PEG SCH (09:21)
[2021-06-22] MEDS: methylPREDNISolone sod succ/PF 40mg inj. IV SCH (09:21)
[2021-06-22] MEDS: allopurinol 100mg tablet PEG SCH (09:23)
[2021-06-22] MEDS: calcium carbonate/vitamin D3 tablet PEG SCH (09:23)
[2021-06-22] MEDS: amLODIPine 5mg tablet PEG SCH (09:23)
[2021-06-22] MEDS: losartan 50mg tablet PEG SCH (09:24)
[2021-06-22] MEDS: pantoprazole 40MG/NS 100ML BAG 100 ML IV SCH (09:25)
[2021-06-22] MEDS: LIDOcaine 5% patch TP SCH (09:48)
[2021-06-22] MEDS: MULTIVIT-MIN/FERROUS GLUCONATE 9 MG/15 ML LIQUID PEG SCH (09:50)
[2021-06-22 11:00] VITALS: BP 160/65
[2021-06-22 15:00] VITALS: BP 170/79
[2021-06-22] MEDS: quetiapine 100mg tablet PEG SCH (20:11)
[2021-06-22] MEDS: gabapentin 300mg capsule PEG SCH (20:13)
[2021-06-22] MEDS: insulin glargine (Lantus) pen - multi-dose SQ SCH (20:36)
[2021-06-22] MEDS: temazepam 15mg capsule PEG PRN (23:00)
[2021-06-23] MEDS: heparin, porcine 5000 units/ml vial SQ SCH ×4 (00:21→23:35)
[2021-06-23] MEDS: metoprolol tartrate 50mg tablet PEG SCH ×4 (01:59→21:07)
[2021-06-23] MEDS: hyDRALAzine 10mg tablet PEG SCH ×4 (01:59→21:08)
[2021-06-23] MEDS: insulin regular, human U-100 3ml vial - multi-dose SQ SCH ×4 (02:03→22:26)
[2021-06-23 02:10] VITALS: BP 154/70
[2021-06-23 06:00] VITALS: BP 97/58
--- NOTE | 2021-06-23 06:15 | NUR ---
Patient in room PCU 3017. I have received report from Yuli ORLANDO and had the opportunity to ask questions and assume patient care.
[2021-06-23 07:11] LABS: BASOPHILS # (AUTO) 0.1 X10'3 (0-0.2); BASOPHILS % (AUTO) 0.5 % (0-1); EOSINOPHILS % (AUTO) 0.3 % (0-6); HEMATOCRIT 30.1 % (42.0-52.0); LYMPHOCYTES # (AUTO) 0.4 X10'3 (1.1-4.8); LYMPHOCYTES % (AUTO) 2.9 % (21-51); MEAN CORPUSCULAR HEMOGLOBIN 31.1 PG (27.0-31.0); MEAN CORPUSCULAR HGB CONC 33.2 g/dL (33.0-36.5); MEAN CORPUSCULAR VOLUME 93.7 FL (78-98); MEAN PLATELET VOLUME 7.3 FL (7.4-10.4); MONOCYTES # (AUTO) 0.6 X10'3 (0-0.9); MONOCYTES % (AUTO) 4.7 % (2-12); NEUTROPHILS # (AUTO) 12.1 X10'3 (1.8-7.7); NEUTROPHILS % (AUTO) 91.6 % (42-75); PLATELET COUNT 262 X10'3 (140-440); RED BLOOD COUNT 3.22 X10'6 (4.70-6.10); RED CELL DISTRIBUTION WIDTH 19.5 % (11.5-14.5); WHITE BLOOD COUNT 13.3 X10'3 (4.5-11.0)
[2021-06-23] MEDS: albuterol 2.5 MG/3 ML nebule NEB SCH ×4 (07:15→21:01)
[2021-06-23 07:22] LABS: ALANINE AMINOTRANSFERASE 37 U/L (12-78); ALBUMIN 2.3 G/DL (3.4-5.0); ALBUMIN/GLOBULIN RATIO 0.6 (1.1-1.5); ALKALINE PHOSPHATASE 209 IU/L (46-116); ANION GAP 10 (8-16); ASPARTATE AMINO TRANSFERASE 26 U/L (10-37); BILIRUBIN,TOTAL 0.5 MG/DL (0.1-1.0); BLOOD UREA NITROGEN 36 MG/DL (7-18); BUN/CREATININE RATIO 17.3 (5.4-32.0); CALCIUM 8.4 MG/DL (8.5-10.1); CHLORIDE 100 MMOL/L (99-107); CREATININE 2.08 MG/DL (0.60-1.10); GLUCOSE 96 MG/DL (70-104); POTASSIUM 3.6 MMOL/L (3.5-5.1); SODIUM 139 MMOL/L (135-145); TOTAL CARBON DIOXIDE 28.7 MMOL/L (24-32); TOTAL PROTEIN 6.2 G/DL (6.4-8.2); eGFR 31 ML/MIN
[2021-06-23] MEDS: LIDOcaine 5% patch TP SCH (08:00)
[2021-06-23] MEDS: MULTIVIT-MIN/FERROUS GLUCONATE 9 MG/15 ML LIQUID PEG SCH (08:00)
[2021-06-23] MEDS ORDERED: methylPREDNISolone sod succ/PF 40mg inj. IV SCH (08:00)
[2021-06-23] MEDS: quetiapine 100mg tablet PEG SCH (09:30)
[2021-06-23] MEDS: calcium carbonate/vitamin D3 tablet PEG SCH (09:31)
[2021-06-23] MEDS: aspirin 81mg tab.chew PEG SCH (09:31)
[2021-06-23] MEDS: pantoprazole 40MG/NS 100ML BAG 100 ML IV SCH (09:32)
[2021-06-23] MEDS: amLODIPine 5mg tablet PEG SCH (09:53)
[2021-06-23 11:00] VITALS: BP 170/80
[2021-06-23] MEDS: losartan 50mg tablet PEG SCH (11:57)
--- NOTE | 2021-06-23 14:32 | NUR ---
ORDERS TO DC TELE MONITOR PUT IN PER DR. KRAMER
[2021-06-23] MEDS: cefTRIAXone 1g/NS 100ml IVPB 100 ML IV SCH (16:23)
[2021-06-23 18:00] VITALS: BP 181/88
--- NOTE | 2021-06-23 18:01 | NUR ---
PAGER ID: [phone] MESSAGE: Re: Bi Day. Room: 3018B. UA ordered for Pt. Pt does not produce much urine. Do you want us to straight cath to get UA? -Demetri [facility] #[id number] -Dr. Oneill paged concerning Pt's UA order.
--- NOTE | 2021-06-23 18:45 | NUR ---
Problems reprioritized. Patient report given, questions answered & plan of care reviewed with Loly ORLANDO.
[2021-06-23] MEDS: HYDROcodone/acetaminophen 5mg/325mg tablet PO PRN (21:08)
[2021-06-23] MEDS: gabapentin 300mg capsule PEG SCH (21:08)
[2021-06-23] MEDS: QUEtiapine 25mg tablet PEG SCH (21:08)
[2021-06-23 22:00] VITALS: BP 144/85
[2021-06-23] MEDS: insulin glargine (Lantus) pen - multi-dose SQ SCH (22:22)
[2021-06-24 02:00] VITALS: BP 116/78
[2021-06-24] MEDS: hyDRALAzine 10mg tablet PEG SCH ×4 (02:21→20:27)
[2021-06-24] MEDS: metoprolol tartrate 50mg tablet PEG SCH ×4 (02:22→20:27)
--- NOTE | 2021-06-24 05:00 | NUR ---
Rectal tube replace and patient clean and reposition as needed sitter at bed side
[2021-06-24 06:00] VITALS: BP 161/69
[2021-06-24 06:04] LABS: CLARITY,URINE CLOUDY (Clear); COLOR,URINE YELLOW (Yellow); GLUCOSE, URINE 250 mg/dl (Neg); KETONES,URINE NEGATIVE (Neg); LEUKOCYTE ESTERASE ,URINE LARGE (Neg); NITRITES, URINE NEGATIVE (Neg); OCCULT BLOOD,URINE MODERATE (Neg); PROTEIN,URINE >=300 mg/dl (Neg); UROBILINOGEN,URINE 0.2 E.U/dL (0.2-1.0)
[2021-06-24 06:14] LABS: UA COLLECTION TYPE NON-SPECIFIED
[2021-06-24 06:15] LABS: RBC,URINE 50-100 /HPF (0-2); WBC,URINE TNTC /HPF (0-4)
[2021-06-24 06:21] LABS: BACTERIA,URINE 3+ /HPF (Neg)
[2021-06-24 06:23] LABS: SQUAMOUS EPITHELIAL CELL,UR FEW /LPF (FEW); YEAST FEW /HPF (NEGATIVE)
--- NOTE | 2021-06-24 06:59 | NUR ---
Problems reprioritized. Patient report given, questions answered & plan of care reviewed with Kim ORLANDO .
[2021-06-24] MEDS: albuterol 2.5 MG/3 ML nebule NEB SCH ×4 (07:00→19:34)
[2021-06-24] MEDS: QUEtiapine 25mg tablet PEG SCH ×2 (08:00→20:28)
[2021-06-24] MEDS: amLODIPine 5mg tablet PEG SCH (08:00)
[2021-06-24] MEDS: MULTIVIT-MIN/FERROUS GLUCONATE 9 MG/15 ML LIQUID PEG SCH (08:00)
[2021-06-24] MEDS: aspirin 81mg tab.chew PEG SCH (08:00)
[2021-06-24] MEDS: pantoprazole 40MG/NS 100ML BAG 100 ML IV SCH (08:00)
[2021-06-24] MEDS: calcium carbonate/vitamin D3 tablet PEG SCH (08:00)
[2021-06-24] MEDS: cefTRIAXone 1g/NS 100ml IVPB 100 ML IV SCH (08:00)
[2021-06-24] MEDS: heparin, porcine 5000 units/ml vial SQ SCH ×3 (08:00→23:52)
[2021-06-24] MEDS: losartan 50mg tablet PEG SCH (08:00)
[2021-06-24] MEDS: LIDOcaine 5% patch TP SCH (08:00)
[2021-06-24] MEDS: allopurinol 100mg tablet PEG SCH (08:00)
[2021-06-24] MEDS ORDERED: normal saline 1000ml 250 ML IV PRN (10:40)
[2021-06-24] MEDS ORDERED: EPOETIN ALFA-EPBX 20,000 UNIT/ML 1 ML MDV IV ONE (10:40)
[2021-06-24] MEDS ORDERED: heparin 1,000unit/ml 10ml vial 10 ML IV ONE (10:40)
[2021-06-24] MEDS ORDERED: heparin 1,000 units/ml 10ml inj HE ONE ×2 (10:45)
[2021-06-24 11:00] VITALS: BP 134/108
[2021-06-24 11:54] LABS: EOSINOPHILS # (AUTO) 0.1 X10'3 (0-0.9); LYMPHOCYTES # (AUTO) 0.4 X10'3 (1.1-4.8); MEAN CORPUSCULAR HGB CONC 33.9 g/dL (33.0-36.5); RED CELL DISTRIBUTION WIDTH 19.4 % (11.5-14.5)
[2021-06-24 11:56] LABS: BASOPHILS % (AUTO) 0 % (0-1); EOSINOPHILS % (AUTO) 1.2 % (0-6); HEMOGLOBIN 8.8 g/dl (14.0-17.9); LYMPHOCYTES % (AUTO) 3.9 % (21-51); MEAN CORPUSCULAR HEMOGLOBIN 32.4 PG (27.0-31.0); MEAN CORPUSCULAR VOLUME 95.5 FL (78-98); MEAN PLATELET VOLUME 7.3 FL (7.4-10.4); MONOCYTES # (AUTO) 0.4 X10'3 (0-0.9); MONOCYTES % (AUTO) 4.1 % (2-12); NEUTROPHILS # (AUTO) 9.9 X10'3 (1.8-7.7); NEUTROPHILS % (AUTO) 90.8 % (42-75); PLATELET COUNT 223 X10'3 (140-440); RED BLOOD COUNT 2.72 X10'6 (4.70-6.10); WHITE BLOOD COUNT 10.9 X10'3 (4.5-11.0)
[2021-06-24 12:21] LABS: ALANINE AMINOTRANSFERASE 32 U/L (12-78); ALBUMIN 2.2 G/DL (3.4-5.0); ALBUMIN/GLOBULIN RATIO 0.8 (1.1-1.5); ALKALINE PHOSPHATASE 217 IU/L (46-116); ANION GAP 13 (8-16); ASPARTATE AMINO TRANSFERASE 20 U/L (10-37); BILIRUBIN,TOTAL 0.3 MG/DL (0.1-1.0); BLOOD UREA NITROGEN 64 MG/DL (7-18); BUN/CREATININE RATIO 19.1 (5.4-32.0); CALCIUM 7.7 MG/DL (8.5-10.1); CHLORIDE 98 MMOL/L (99-107); CREATININE 3.35 MG/DL (0.60-1.10); GLUCOSE 270 MG/DL (70-104); SODIUM 136 MMOL/L (135-145); TOTAL CARBON DIOXIDE 24.8 MMOL/L (24-32); TOTAL PROTEIN 5.1 G/DL (6.4-8.2); eGFR 18 ML/MIN
[2021-06-24 12:28] LABS: ANISOCYTOSIS 2+; PLATELET ESTIMATE NORMAL
[2021-06-24 12:29] LABS: POIKILOCYTOSIS FEW
[2021-06-24 15:00] VITALS: BP 99/76
[2021-06-24 18:00] VITALS: BP 121/60
[2021-06-24] MEDS: ondansetron/PF 4mg/2ml inj IV PRN (18:05)
--- NOTE | 2021-06-24 18:05 | NUR ---
Bi tried to eat a few bites of dinner and was nauseated from it. I gave him some zofran.
[2021-06-24] MEDS: HYDROcodone/acetaminophen 5mg/325mg tablet PO PRN (20:27)
[2021-06-24] MEDS: gabapentin 300mg capsule PEG SCH (20:27)
[2021-06-24] MEDS: LORazepam 0.5 MG tablet PEG PRN (20:28)
[2021-06-24] MEDS: insulin glargine (Lantus) pen - multi-dose SQ SCH (20:48)
[2021-06-24] MEDS: insulin regular, human U-100 3ml vial - multi-dose SQ SCH (20:50)
[2021-06-24 22:00] VITALS: BP 116/55
[2021-06-25] VITALS (7 sets, daily range): BP systolic 107–164; BP diastolic 50–78
[2021-06-25] MEDS: hyDRALAzine 10mg tablet PEG SCH ×4 (01:25→20:45)
[2021-06-25] MEDS: metoprolol tartrate 50mg tablet PEG SCH ×4 (01:25→20:45)
--- NOTE | 2021-06-25 06:18 | NUR ---
Problems reprioritized. Patient report given, questions answered & plan of care reviewed with Kim ORLANDO .
[2021-06-25] MEDS: albuterol 2.5 MG/3 ML nebule NEB SCH ×4 (07:15→19:00)
[2021-06-25] MEDS: aspirin 81mg tab.chew PEG SCH (08:00)
[2021-06-25] MEDS: losartan 50mg tablet PEG SCH (08:00)
[2021-06-25] MEDS: heparin, porcine 5000 units/ml vial SQ SCH ×2 (08:00→16:00)
[2021-06-25] MEDS: QUEtiapine 25mg tablet PEG SCH ×2 (08:00→20:44)
[2021-06-25] MEDS: calcium carbonate/vitamin D3 tablet PEG SCH (08:00)
[2021-06-25] MEDS: LIDOcaine 5% patch TP SCH (08:00)
[2021-06-25] MEDS: amLODIPine 5mg tablet PEG SCH (08:00)
[2021-06-25] MEDS: MULTIVIT-MIN/FERROUS GLUCONATE 9 MG/15 ML LIQUID PEG SCH (08:00)
[2021-06-25] MEDS: pantoprazole 40MG/NS 100ML BAG 100 ML IV SCH (08:00)
[2021-06-25] MEDS: cefTRIAXone 1g/NS 100ml IVPB 100 ML IV SCH (08:00)
[2021-06-25] MEDS: LORazepam 2 mg/ml vial IV PRN (09:17)
[2021-06-25] MEDS: ondansetron/PF 4mg/2ml inj IV PRN (09:18)
--- NOTE | 2021-06-25 11:36 | NUR ---
I just spoke with Radha from [facility] and she stated [facility] was closed to transfers today and they do not want to transfer her tomorrow the day of dialysis, so they will reassess Monday re: transferring the patient. I let Zuleika with case management know.
[2021-06-25 12:11] LABS: BASOPHILS % (AUTO) 0.5 % (0-1); EOSINOPHILS # (AUTO) 0.1 X10'3 (0-0.9); EOSINOPHILS % (AUTO) 1.2 % (0-6); HEMATOCRIT 25.6 % (42.0-52.0); HEMOGLOBIN 8.5 g/dl (14.0-17.9); LYMPHOCYTES # (AUTO) 0.4 X10'3 (1.1-4.8); MEAN CORPUSCULAR HEMOGLOBIN 31.6 PG (27.0-31.0); MEAN CORPUSCULAR HGB CONC 33.3 g/dL (33.0-36.5); MEAN CORPUSCULAR VOLUME 94.7 FL (78-98); MEAN PLATELET VOLUME 7.6 FL (7.4-10.4); MONOCYTES # (AUTO) 0.6 X10'3 (0-0.9); MONOCYTES % (AUTO) 6.3 % (2-12); NEUTROPHILS # (AUTO) 8.3 X10'3 (1.8-7.7); PLATELET COUNT 232 X10'3 (140-440); RED BLOOD COUNT 2.71 X10'6 (4.70-6.10); RED CELL DISTRIBUTION WIDTH 19.3 % (11.5-14.5); WHITE BLOOD COUNT 9.4 X10'3 (4.5-11.0)
--- NOTE | 2021-06-25 14:21 | NUR ---
1100 SVN TRIAGED. THERAPIST NOT AVAILABLE
--- NOTE | 2021-06-25 16:05 | NUR ---
Reassessment: Patient's PO intake fluctuated, mostly with 25% PO intake though occasionally up to 100% PO intake. Pt continues receiving TF via PEG which is meeting estimated nutrient needs and pt tolerating with GRV WNL. LBM 06/24. No changes to nutrition recommendations at this time. Will continue to follow. Recommendations: 1.Continuous TF using Nepro 1.8 with 52ml/hr goal to provide 1248 mL volume/day, 2,246 kcal, 907 mL water, and 101 g protein. 2. Additional water flush per customs broker given CKD, on HD 3. Continue pureed renal diet with NTL per HEALTH INFORMATION ASSISTANT recs; encourage PO intake 4. Prealbumin q Monday/; Daily scaled weights 5. Consider routine Phos binder per MD discretion on HD; Routine serum Phos and Mg labs 6. Bowel care per rx 7. Continue w/ TF until pt can meet 65% of estimated nutrient needs from PO diet Addendum: 06/25/21 at [address] Amended: Links added.
[2021-06-25] MEDS: insulin regular, human U-100 3ml vial - multi-dose SQ SCH ×2 (17:31→21:16)
--- NOTE | 2021-06-25 18:24 | NUR ---
Problems reprioritized. Patient report given, questions answered & plan of care reviewed with Loly .
[2021-06-25] MEDS: gabapentin 300mg capsule PEG SCH (20:45)
[2021-06-25] MEDS: HYDROcodone/acetaminophen 5mg/325mg tablet PO PRN (20:56)
[2021-06-25] MEDS: LORazepam 0.5 MG tablet PEG PRN (20:57)
[2021-06-25] MEDS: insulin glargine (Lantus) pen - multi-dose SQ SCH (21:14)
[2021-06-26] MEDS: heparin, porcine 5000 units/ml vial SQ SCH ×3 (00:52→15:00)
[2021-06-26 02:00] VITALS: BP 126/62
[2021-06-26] MEDS: metoprolol tartrate 50mg tablet PEG SCH ×4 (02:00→20:52)
[2021-06-26] MEDS: hyDRALAzine 10mg tablet PEG SCH ×4 (02:00→20:51)
[2021-06-26 06:00] VITALS: BP 142/66
--- NOTE | 2021-06-26 06:36 | NUR ---
Problems reprioritized. Patient report given, questions answered & plan of care reviewed with Kim ORLANDO .
[2021-06-26] MEDS: pantoprazole 40MG/NS 100ML BAG 100 ML IV SCH (07:43)
[2021-06-26] MEDS: allopurinol 100mg tablet PEG SCH (08:00)
[2021-06-26] MEDS: calcium carbonate/vitamin D3 tablet PEG SCH (08:00)
[2021-06-26] MEDS ORDERED: heparin 1,000unit/ml 10ml vial 10 ML IV ONE (08:00)
[2021-06-26] MEDS: amLODIPine 5mg tablet PEG SCH (08:00)
[2021-06-26] MEDS: aspirin 81mg tab.chew PEG SCH (08:00)
[2021-06-26] MEDS: losartan 50mg tablet PEG SCH (08:00)
[2021-06-26] MEDS ORDERED: heparin 1,000 units/ml 10ml inj HE ONE ×2 (08:00)
[2021-06-26] MEDS ORDERED: EPOETIN ALFA-EPBX 20,000 UNIT/ML 1 ML MDV IV ONE (08:00)
[2021-06-26] MEDS ORDERED: normal saline 1000ml 250 ML IV PRN (08:00)
[2021-06-26] MEDS: LORazepam 2 mg/ml vial IV PRN ×2 (08:35→14:02)
[2021-06-26 09:01] LABS: BASOPHILS # (AUTO) 0.1 X10'3 (0-0.2); BASOPHILS % (AUTO) 0.5 % (0-1); EOSINOPHILS # (AUTO) 0.2 X10'3 (0-0.9); EOSINOPHILS % (AUTO) 1.8 % (0-6); HEMATOCRIT 27.2 % (42.0-52.0); HEMOGLOBIN 9.3 g/dl (14.0-17.9); LYMPHOCYTES # (AUTO) 0.5 X10'3 (1.1-4.8); LYMPHOCYTES % (AUTO) 4.4 % (21-51); MEAN CORPUSCULAR HEMOGLOBIN 32.4 PG (27.0-31.0); MEAN CORPUSCULAR VOLUME 95.2 FL (78-98); MEAN PLATELET VOLUME 7.6 FL (7.4-10.4); MONOCYTES # (AUTO) 0.6 X10'3 (0-0.9); MONOCYTES % (AUTO) 6.1 % (2-12); NEUTROPHILS # (AUTO) 9.1 X10'3 (1.8-7.7); NEUTROPHILS % (AUTO) 87.2 % (42-75); PLATELET COUNT 272 X10'3 (140-440); RED BLOOD COUNT 2.86 X10'6 (4.70-6.10); RED CELL DISTRIBUTION WIDTH 19.1 % (11.5-14.5); WHITE BLOOD COUNT 10.4 X10'3 (4.5-11.0)
[2021-06-26] MEDS: QUEtiapine 25mg tablet PEG SCH ×2 (09:01→20:52)
[2021-06-26] MEDS: MULTIVIT-MIN/FERROUS GLUCONATE 9 MG/15 ML LIQUID PEG SCH (09:01)
[2021-06-26] MEDS: LIDOcaine 5% patch TP SCH (09:01)
[2021-06-26 09:36] LABS: ALANINE AMINOTRANSFERASE 32 U/L (12-78); ALBUMIN 2.2 G/DL (3.4-5.0); ALBUMIN/GLOBULIN RATIO 0.6 (1.1-1.5); ALKALINE PHOSPHATASE 230 IU/L (46-116); ANION GAP 14 (8-16); ASPARTATE AMINO TRANSFERASE 18 U/L (10-37); BILIRUBIN,TOTAL 0.3 MG/DL (0.1-1.0); BLOOD UREA NITROGEN 58 MG/DL (7-18); BUN/CREATININE RATIO 17.3 (5.4-32.0); CALCIUM 8.5 MG/DL (8.5-10.1); CHLORIDE 98 MMOL/L (99-107); CREATININE 3.36 MG/DL (0.60-1.10); GLUCOSE 154 MG/DL (70-104); POTASSIUM 4.6 MMOL/L (3.5-5.1); SODIUM 139 MMOL/L (135-145); TOTAL CARBON DIOXIDE 27.5 MMOL/L (24-32); TOTAL PROTEIN 6.1 G/DL (6.4-8.2); eGFR 18 ML/MIN
[2021-06-26] MEDS: albuterol 2.5 MG/3 ML nebule NEB SCH ×4 (09:49→19:00)
[2021-06-26 10:16] LABS: ANISOCYTOSIS 2+; PLATELET ESTIMATE NORMAL; SCHISTOCYTES FEW
[2021-06-26 11:00] VITALS: BP 162/70
[2021-06-26] MEDS ORDERED: fluconazole 100mg tablet PO ONE (13:45)
[2021-06-26] MEDS: insulin regular, human U-100 3ml vial - multi-dose SQ SCH ×2 (16:52→21:05)
[2021-06-26 18:00] VITALS: BP 110/70
[2021-06-26] MEDS: gabapentin 300mg capsule PEG SCH (20:51)
[2021-06-26] MEDS: LORazepam 0.5 MG tablet PEG PRN (20:52)
[2021-06-26] MEDS: HYDROcodone/acetaminophen 5mg/325mg tablet PO PRN (20:52)
[2021-06-26] MEDS: insulin glargine (Lantus) pen - multi-dose SQ SCH (21:04)
[2021-06-26 22:00] VITALS: BP 117/54
[2021-06-27] MEDS: heparin, porcine 5000 units/ml vial SQ SCH ×2 (00:29→09:08)
[2021-06-27] MEDS: metoprolol tartrate 50mg tablet PEG SCH ×2 (01:47→09:11)
[2021-06-27] MEDS: hyDRALAzine 10mg tablet PEG SCH ×2 (01:48→09:10)
[2021-06-27 02:00] VITALS: BP 133/62
[2021-06-27 06:00] VITALS: BP 144/68
--- NOTE | 2021-06-27 06:46 | NUR ---
Problems reprioritized. Patient report given, questions answered & plan of care reviewed with Holden ORLANDO .
[2021-06-27] MEDS: albuterol 2.5 MG/3 ML nebule NEB SCH ×2 (07:00→11:00)
[2021-06-27] MEDS ORDERED: fluconazole 100mg tablet PO SCH (08:00)
[2021-06-27 08:21] LABS: BASOPHILS # (AUTO) 0.1 X10'3 (0-0.2); BASOPHILS % (AUTO) 0.9 % (0-1); EOSINOPHILS # (AUTO) 0.1 X10'3 (0-0.9); EOSINOPHILS % (AUTO) 1.4 % (0-6); HEMATOCRIT 27.6 % (42.0-52.0); HEMOGLOBIN 9.2 g/dl (14.0-17.9); LYMPHOCYTES # (AUTO) 0.6 X10'3 (1.1-4.8); LYMPHOCYTES % (AUTO) 5.8 % (21-51); MEAN CORPUSCULAR HEMOGLOBIN 31.9 PG (27.0-31.0); MEAN CORPUSCULAR HGB CONC 33.5 g/dL (33.0-36.5); MEAN CORPUSCULAR VOLUME 95.1 FL (78-98); MEAN PLATELET VOLUME 7.8 FL (7.4-10.4); MONOCYTES # (AUTO) 0.9 X10'3 (0-0.9); MONOCYTES % (AUTO) 8.6 % (2-12); NEUTROPHILS # (AUTO) 8.3 X10'3 (1.8-7.7); NEUTROPHILS % (AUTO) 83.3 % (42-75); PLATELET COUNT 293 X10'3 (140-440); RED CELL DISTRIBUTION WIDTH 18.8 % (11.5-14.5)
[2021-06-27 08:46] LABS: ALANINE AMINOTRANSFERASE 30 U/L (12-78); ALBUMIN 2.1 G/DL (3.4-5.0); ALBUMIN/GLOBULIN RATIO 0.5 (1.1-1.5); ALKALINE PHOSPHATASE 243 IU/L (46-116); ANION GAP 6 (8-16); ASPARTATE AMINO TRANSFERASE 23 U/L (10-37); BILIRUBIN,TOTAL 0.3 MG/DL (0.1-1.0); BLOOD UREA NITROGEN 30 MG/DL (7-18); BUN/CREATININE RATIO 14.6 (5.4-32.0); CALCIUM 8.2 MG/DL (8.5-10.1); CHLORIDE 103 MMOL/L (99-107); CREATININE 2.06 MG/DL (0.60-1.10); GLUCOSE 219 MG/DL (70-104); POTASSIUM 4.2 MMOL/L (3.5-5.1); SODIUM 137 MMOL/L (135-145); TOTAL CARBON DIOXIDE 27.9 MMOL/L (24-32); TOTAL PROTEIN 6.1 G/DL (6.4-8.2); eGFR 32 ML/MIN
[2021-06-27] MEDS: LIDOcaine 5% patch TP SCH (09:08)
[2021-06-27] MEDS: pantoprazole 40MG/NS 100ML BAG 100 ML IV SCH (09:08)
[2021-06-27] MEDS: MULTIVIT-MIN/FERROUS GLUCONATE 9 MG/15 ML LIQUID PEG SCH (09:08)
[2021-06-27] MEDS: calcium carbonate/vitamin D3 tablet PEG SCH (09:09)
[2021-06-27] MEDS: losartan 50mg tablet PEG SCH (09:10)
[2021-06-27] MEDS: amLODIPine 5mg tablet PEG SCH (09:11)
[2021-06-27] MEDS: aspirin 81mg tab.chew PEG SCH (09:11)
[2021-06-27] MEDS: QUEtiapine 25mg tablet PEG SCH (09:11)
[2021-06-27 11:00] VITALS: BP 136/60
--- NOTE | 2021-06-27 16:09 | NUR ---
Report called to Cory Jain. Pt. left with transport at 1330.
== END 2021-06-27 14:17 | disposition short-term general hospital (02) | DRG 871 ==
LOC: ER 07:06 → ED HOLD 10:27 → PCU 3S 17:32 → ICU 2S 05-12 00:43 → CICU 2S 06-02 14:56 → SUR 3N 06-12 15:19 → PCU 3S 06-13 00:35
PROVIDERS: ADMIT Internal Medicine; ATTEND Internal Medicine Critical Care Medicine
PROC: CB121ZZ Planar Nuclear Medicine Imaging of Lungs and Bronchi using Technetium 99m (Tc-99m) (ICD-10-PCS; 2021-05-11)
PROC: 02HV33Z Insertion of Infusion Device into Superior Vena Cava, Percutaneous Approach (ICD-10-PCS; principal; 2021-05-12)
PROC: B548ZZA Ultrasonography of Superior Vena Cava, Guidance (ICD-10-PCS; 2021-05-12)
PROC: 30233N1 Transfusion of Nonautologous Red Blood Cells into Peripheral Vein, Percutaneous Approach (ICD-10-PCS; 2021-05-12)
PROC: 5A09557 Assistance with Respiratory Ventilation, Greater than 96 Consecutive Hours, Continuous Positive Airway Pressure (ICD-10-PCS; 2021-05-12)
PROC: 5A0935A Assistance with Respiratory Ventilation, Less than 24 Consecutive Hours, High Flow/Velocity Cannula (ICD-10-PCS; 2021-05-18)
PROC: 5A0935A Assistance with Respiratory Ventilation, Less than 24 Consecutive Hours, High Flow/Velocity Cannula (ICD-10-PCS; 2021-05-19)
PROC: 5A1D70Z Performance of Urinary Filtration, Intermittent, Less than 6 Hours Per Day (ICD-10-PCS; 2021-05-20)
PROC: 5A0935A Assistance with Respiratory Ventilation, Less than 24 Consecutive Hours, High Flow/Velocity Cannula (ICD-10-PCS; 2021-05-20)
PROC: 5A1D70Z Performance of Urinary Filtration, Intermittent, Less than 6 Hours Per Day (ICD-10-PCS; 2021-05-21)
PROC: 5A0935A Assistance with Respiratory Ventilation, Less than 24 Consecutive Hours, High Flow/Velocity Cannula (ICD-10-PCS; 2021-05-22)
PROC: 5A1D70Z Performance of Urinary Filtration, Intermittent, Less than 6 Hours Per Day (ICD-10-PCS; 2021-05-23)
PROC: 5A1D70Z Performance of Urinary Filtration, Intermittent, Less than 6 Hours Per Day (ICD-10-PCS; 2021-05-25)
PROC: 5A1D70Z Performance of Urinary Filtration, Intermittent, Less than 6 Hours Per Day (ICD-10-PCS; 2021-05-27)
PROC: 5A09357 Assistance with Respiratory Ventilation, Less than 24 Consecutive Hours, Continuous Positive Airway Pressure (ICD-10-PCS; 2021-05-27)
PROC: 5A1D70Z Performance of Urinary Filtration, Intermittent, Less than 6 Hours Per Day (ICD-10-PCS; 2021-05-28)
PROC: 06HY33Z Insertion of Infusion Device into Lower Vein, Percutaneous Approach (ICD-10-PCS; 2021-05-28)
PROC: 5A09357 Assistance with Respiratory Ventilation, Less than 24 Consecutive Hours, Continuous Positive Airway Pressure (ICD-10-PCS; 2021-05-28)
PROC: 5A0935A Assistance with Respiratory Ventilation, Less than 24 Consecutive Hours, High Flow/Velocity Cannula (ICD-10-PCS; 2021-05-28)
PROC: B32T1ZZ Computerized Tomography (CT Scan) of Left Pulmonary Artery using Low Osmolar Contrast (ICD-10-PCS; 2021-05-29)
PROC: B3201ZZ Computerized Tomography (CT Scan) of Thoracic Aorta using Low Osmolar Contrast (ICD-10-PCS; 2021-05-29)
PROC: B32S1ZZ Computerized Tomography (CT Scan) of Right Pulmonary Artery using Low Osmolar Contrast (ICD-10-PCS; 2021-05-29)
PROC: 5A12012 Performance of Cardiac Output, Single, Manual (ICD-10-PCS; 2021-05-29)
PROC: 5A1945Z Respiratory Ventilation, 24-96 Consecutive Hours (ICD-10-PCS; 2021-05-29)
PROC: 0BH17EZ Insertion of Endotracheal Airway into Trachea, Via Natural or Artificial Opening (ICD-10-PCS; 2021-05-29)
PROC: 5A1D70Z Performance of Urinary Filtration, Intermittent, Less than 6 Hours Per Day (ICD-10-PCS; 2021-05-31)
PROC: 5A1D70Z Performance of Urinary Filtration, Intermittent, Less than 6 Hours Per Day (ICD-10-PCS; 2021-06-01)
PROC: 5A1D70Z Performance of Urinary Filtration, Intermittent, Less than 6 Hours Per Day (ICD-10-PCS; 2021-06-03)
PROC: 0BH17EZ Insertion of Endotracheal Airway into Trachea, Via Natural or Artificial Opening (ICD-10-PCS; 2021-06-04)
PROC: 5A1935Z Respiratory Ventilation, Less than 24 Consecutive Hours (ICD-10-PCS; 2021-06-04)
PROC: 5A1D70Z Performance of Urinary Filtration, Intermittent, Less than 6 Hours Per Day (ICD-10-PCS; 2021-06-05)
PROC: 5A09457 Assistance with Respiratory Ventilation, 24-96 Consecutive Hours, Continuous Positive Airway Pressure (ICD-10-PCS; 2021-06-05)
PROC: 5A1D70Z Performance of Urinary Filtration, Intermittent, Less than 6 Hours Per Day (ICD-10-PCS; 2021-06-07)
PROC: 0JH63XZ Insertion of Tunneled Vascular Access Device into Chest Subcutaneous Tissue and Fascia, Percutaneous Approach (ICD-10-PCS; 2021-06-08)
PROC: 02HV33Z Insertion of Infusion Device into Superior Vena Cava, Percutaneous Approach (ICD-10-PCS; 2021-06-08)
PROC: B548ZZA Ultrasonography of Superior Vena Cava, Guidance (ICD-10-PCS; 2021-06-08)
PROC: B5181ZA Fluoroscopy of Superior Vena Cava using Low Osmolar Contrast, Guidance (ICD-10-PCS; 2021-06-08)
PROC: 5A1D70Z Performance of Urinary Filtration, Intermittent, Less than 6 Hours Per Day (ICD-10-PCS; 2021-06-08)
PROC: 5A1D70Z Performance of Urinary Filtration, Intermittent, Less than 6 Hours Per Day (ICD-10-PCS; 2021-06-10)
PROC: 0DH63UZ Insertion of Feeding Device into Stomach, Percutaneous Approach (ICD-10-PCS; 2021-06-10)
PROC: 5A1D70Z Performance of Urinary Filtration, Intermittent, Less than 6 Hours Per Day (ICD-10-PCS; 2021-06-12)
PROC: 5A1D70Z Performance of Urinary Filtration, Intermittent, Less than 6 Hours Per Day (ICD-10-PCS; 2021-06-15)
PROC: 5A1D70Z Performance of Urinary Filtration, Intermittent, Less than 6 Hours Per Day (ICD-10-PCS; 2021-06-17)
PROC: 5A1D70Z Performance of Urinary Filtration, Intermittent, Less than 6 Hours Per Day (ICD-10-PCS; 2021-06-19)
PROC: 5A1D70Z Performance of Urinary Filtration, Intermittent, Less than 6 Hours Per Day (ICD-10-PCS; 2021-06-22)
PROC: 5A1D70Z Performance of Urinary Filtration, Intermittent, Less than 6 Hours Per Day (ICD-10-PCS; 2021-06-24)
PROC: 5A1D70Z Performance of Urinary Filtration, Intermittent, Less than 6 Hours Per Day (ICD-10-PCS; 2021-06-26)
DX: A41.9 Sepsis, unspecified organism (principal); U07.1 COVID-19; J12.82 Pneumonia due to coronavirus disease 2019; J15.9 Unspecified bacterial pneumonia; N18.6 End stage renal disease; E43 Unspecified severe protein-calorie malnutrition; I46.9 Cardiac arrest, cause unspecified; I50.33 Acute on chronic diastolic (congestive) heart failure; J69.0 Pneumonitis due to inhalation of food and vomit; J80 Acute respiratory distress syndrome; N17.9 Acute kidney failure, unspecified; G93.40 Encephalopathy, unspecified; E87.2 Acidosis; I13.2 Hypertensive heart and chronic kidney disease with heart failure and with stage 5 chronic kidney disease, or end stage renal disease; J98.11 Atelectasis; D68.69 Other thrombophilia; E87.5 Hyperkalemia; F03.90 Unspecified dementia, unspecified severity, without behavioral disturbance, psychotic disturbance, mood disturbance, and anxiety; D63.8 Anemia in other chronic diseases classified elsewhere; F41.9 Anxiety disorder, unspecified; F32.A Depression, unspecified; K21.00 Gastro-esophageal reflux disease with esophagitis, without bleeding; K31.89 Other diseases of stomach and duodenum; K29.80 Duodenitis without bleeding; R13.12 Dysphagia, oropharyngeal phase; E11.42 Type 2 diabetes mellitus with diabetic polyneuropathy; E11.22 Type 2 diabetes mellitus with diabetic chronic kidney disease; E11.649 Type 2 diabetes mellitus with hypoglycemia without coma; B95.7 Other staphylococcus as the cause of diseases classified elsewhere; E88.09 Other disorders of plasma-protein metabolism, not elsewhere classified; E11.65 Type 2 diabetes mellitus with hyperglycemia; R63.4 Abnormal weight loss; B37.9 Candidiasis, unspecified; R00.1 Bradycardia, unspecified; R34 Anuria and oliguria; R47.1 Dysarthria and anarthria; H57.02 Anisocoria; M10.9 Gout, unspecified; N40.0 Benign prostatic hyperplasia without lower urinary tract symptoms; R13.10 Dysphagia, unspecified; R65.20 Severe sepsis without septic shock; Z79.4 Long term (current) use of insulin; Z79.899 Other long term (current) drug therapy; Z93.1 Gastrostomy status; Z99.2 Dependence on renal dialysis; Z68.24 Body mass index [BMI] 24.0-24.9, adult; Z78.1 Physical restraint status
CPT/HCPCS: 36415; 36430; 36558; 36569; 36600; 43246; 70450; 71045; 71275; 72125; 74018; 76937; 76942; 77001; 78580; 78582; 80048; 80053; 80202; 81001; 82272; 82728; 82803; 82810; 82948; 83036; 83540; 83550; 83605; 83615; 83735; 83880; 84100; 84132; 84134; 84145; 84478; 84484; 85007; 85008; 85018; 85025; 85027; 85379; 85610; 85730; 86140; 86885; 86900; 86901; 86920; 87040; 87070; 87077; 87081; 87088; 87186; 87340; 87635; 90935; 92508; 92950; 93005; 93308; 93880; 93970; 94002; 94003; 94640; 94660; 94760; 94799; 96365; 97110; 97161; 97530; 97535; 99152; 99153; 99285; A4620; A7015; A9540; B4087; C9113; C9803; G0257; G0378; J0153; J0171; J0360; J0456; J0461; J0610; J0690; J0692; J0696; J1100; J1450; J1644; J1650; J1815; J1940; J2060; J2150; J2185; J2250; J2270; J2405; J2704; J2920; J2930; J2997; J3010; J3370; J3490; J7030; J7040; J7050; J7060; J7070; P9016; Q4081